=== PATIENT | male | born 1945 | race Caucasian/White ===

== ENCOUNTER 2017-12-28 14:40 | Emergency (ER) | payer MEDICARE, BC, OTHER ==
[2017-12-28 15:25] LABS: Bilirubin Negative (Negative); Blood, Urine Large (Negative); Clarity CLEAR (Clear); Glucose, Urine (Dipstick) >=1000 mg/dL (Negative); Leukocyte Negative (Negative); Nitrite Negative (Negative); Protein, Urine (Dipstick) Negative (Neg-Trace); Urobilinogen 0.2 mg/dL (0.2-1.0); pH, Urine 6.5 (5.0-9.0)
[2017-12-28 15:27] LABS: Bacteria/HPF None Seen HPF (None Seen); Hyaline Casts/LPF 0-3 HYALINE CAST LPF (0-3 Hyaline); Pathc Cast-AUWi Flag 0.14 (0-2.49); RBC/HPF GREATER THAN 50-TNTC HPF (0-3); Squamous Epithelial None Seen HPF (0-3); WBC/HPF 0-3 HPF (0-3)
[2017-12-28 16:09] LABS: #Eosinphils 0.1 thou/uL (0.0-0.7); #Lymphocytes 1.3 thou/uL (1.20-3.40); #Monocytes 0.6 thou/uL (0.11-0.59); #Neutrophils 6.2 thou/uL (1.40-6.50); %Basophils 0.2 % (0.0-1.0); %Eosinophils 1.2 % (0.0-10.0); %Lymphocytes 15.6 % (21.0-51.0); %Monocytes 7.5 % (0.0-10.0); %Neutrophils 75.5 % (42.0-75.0); Hemoglobin 14.2 g/dL (14.0-18.0); Mean Corpuscular HGB CONC 36.3 g/dL (32.0-36.0); Mean Corpuscular Volume 85.4 fL (78.0-98.0); Mean Platelet Volume 9.3 fL (7.4-10.4); Platelet Count 113 thou/uL (130-400); RBC Distribution Width 12.8 % (11.5-14.5); Red Blood Cell (RBC) Count 4.58 mill/uL (4.70-6.10); White Blood Cell (WBC) Count 8.2 thou/uL (4.8-10.8)
[2017-12-28 16:26] LABS: ALT (SGPT) 18 U/L (8-55); AST (SGOT) 14 U/L (5-34); Albumin 3.8 g/dL (3.4-4.8); Alkaline Phosphatase 56 U/L (40-150); Anion Gap 13 mmol/L (10-20); BUN (Urea Nitrogen) 33 mg/dL (8.4-25.7); Calc. Creatinine Clearance 0 mL/min (70-130); Calcium 9.7 mg/dL (7.8-10.44); Carbon Dioxide 27 mmol/L (23-31); Chloride 96 mmol/L (98-107); Estimated GFR-MDRD 33; Globulin 2.5 g/dL (2.4-3.5); Potassium 3.6 mmol/L (3.5-5.1); Protein, Total 6.3 g/dL (5.8-8.1); Sodium 132 mmol/L (136-145)
[2017-12-28 16:28] LABS: MDiff Complete? YES; Ovalocytes SLIGHT = 2-5 cells (100X) (0-1/hpf); PLT Morphology Comment Appears Decreased
[2017-12-28 16:32] LABS: Glucose 727 mg/dL (83-110)
[2017-12-28] MEDS ORDERED: Insulin Regular 300 UNITS/3 ML VIAL ONE (17:25)
[2017-12-28 17:27] LABS: Base Excess-Venous 2.7 mmol/L (0 (+/- 2.5)); Bicarbonate (HCO3v) 28.1 mmol/L (1.0-85.0); CO2 Tension (PvCO2) 45.3 mmHg (41.0-51.0); Calcium, Ionized 1.18 mmol/L (1.12-1.32); O2 Tension (PvO2) 63.3 mmHg (35.0-45.0); Potassium 3.4 mmol/L (3.4-4.7); T. Carbon Dioxide 29.5 mmol/L (1.0-85.0); pH (Venous) 7.401 (7.35-7.45); vO2 Saturation-calc 91.6 % (94-98)
[2017-12-28 17:48] LABS: Anion Gap 14 mmol/L (10-20); BUN (Urea Nitrogen) 32 mg/dL (8.4-25.7); Calc. Creatinine Clearance 0 mL/min (70-130); Calcium 8.9 mg/dL (7.8-10.44); Carbon Dioxide 25 mmol/L (23-31); Chloride 99 mmol/L (98-107); Estimated GFR-MDRD 33; Potassium 3.3 mmol/L (3.5-5.1); Sodium 135 mmol/L (136-145)
[2017-12-28 17:55] LABS: Glucose 606 mg/dL (83-110)
[2017-12-28] MEDS ORDERED: Insulin Glargine 10 UNITS in Pre-Filled Syringe 1 EACH SC SCH (19:45)
--- NOTE | 2017-12-28 23:11 | CON ---
DATE OF CONSULTATION: 12/28/2017 REFERRING PHYSICIAN: Dr. Lanre Littlejohn. REASON FOR CONSULTATION: Uncontrolled diabetes. HISTORY OF PRESENT ILLNESS: This patient is a 72-year-old male with a longstanding history of diabet es mellitus who actually presented to the emergency department with urinary complaints. Patient repo rts that his PCP is Dr. Saravia. She has been managing his blood pressure and has diabetes. He is on metformin 500 mg every day, appears to be the XR form. The patient reports that he has been experie ncing some weight loss in the range of 20-40 pounds over the last 6 months or so. He does not follow his blood sugars at home, but does note that his last A1c was elevated from the usual 5-6 range into the 9 range. Patient fully admits to being completely noncompliant with his diabetic diet. He eats a lot of sweet foods and drinks at least 2-3 fully sugared soft drinks per day. The patient present ed to the emergency department with a complaint of urinary frequency and urgency present over the las t month. He presented ultimately because he was having some interference of his sleep because of his polyuria and nocturia. In the emergency department, the patient's labs indicated a blood sugar over 700 and a creatinine of 2. The patient has received 2 liters of fluids and 10 units of short-acting insulin. Repeat BMP is pending now. The patient was recommended for admission to the hospital, but he refused that; therefore, they asked for a Medicine consultation in the emergency department. The patient has received 2 units of fluid in the emergency department. Currently, he states that he is feeling better. He states his brain felt "fuzzy" when he presented, but that is better now. REVIEW OF SYSTEMS: Primarily notable for the polyuria, polydipsia and weight loss. He denies signif icant visual changes on the remainder of the review of systems was negative. through 10 systems. PAST MEDICAL HISTORY: Notable for the diabetes, hyperlipidemia, and hypertension. PAST SURGICAL HISTORY: Tonsillectomy. SOCIAL HISTORY: The patient denies drugs, alcohol, or tobacco. CURRENT MEDICATIONS: Metformin XR 500 mg every day, lisinopril-hydrochlorothiazide 20-12.5 one p.o. daily, Cartia XT 240 mg daily, pravastatin 40 mg day. ALLERGIES: None. PHYSICAL EXAMINATION: VITAL SIGNS: Blood pressure 132/78, pulse 88, respirations 18, temperature 98.6, O2 sat 96% on room air. GENERAL APPEARANCE: Age appropriate male. He is in no distress. He is awake, alert, oriented, plea lili, cooperative. HEENT: PERRL. No OP lesions, although he does have a dry oral mucosa. NECK: Supple and symmetric. HEART: Regular rate and rhythm with no murmurs, gallops or rubs. CHEST: Lungs are clear to auscultation bilaterally with good chest wall expansion and air exchange. ABDOMEN: Soft, nontender, nondistended, positive bowel sounds. EXTREMITIES: Warm and dry with trace pretibial edema. LABORATORY DATA: White count 8.2, hemoglobin 14.2, platelets 113. Sodium 132, potassium 3.6, chlori de 96, CO2 of 27, anion gap was 14, BUN 33, creatinine 2.01, glucose 727, calcium 9.7, AST 14, ALT 18 , albumin 3.8. Urinalysis did show some red blood cells with over 1000 glucose. Beta hydroxybutyrat e was 0.24. IMPRESSION AND PLAN: 1. Severely uncontrolled diabetes with hyperglycemia and secondary polyuria, resulting in some level of dehydration. Agree with the excellent care. The patient has received to this point by Dr. Richy levin. I agree with the aggressive hydration. The patient was counseled regarding the situation. He fe els confident that he will be able to follow up with his PCP first thing in the morning. He also sta rock that he will be diligent in complying with his diet. Counseled the patient regarding minimizatio n of any added sugar type foods, especially in the form of soft drinks. He has repeat labs pending n ow. Recommend that if we can get his sugar down below 400 effectively and he is adequately hydrated that he can receive 1 dose of Lantus at 20 units subQ and then can be discharged to continue to hydra te orally and follow up with his PCP tomorrow morning. 2. Patient does have some hematuria. It is unclear if this is related to the polyuria and hyperglyc emia. We will defer further evaluation of that to the ER physician. 3. Hypertension, very well controlled. I appreciate the consultation and the opportunity to participate in this patient's care.
== END 2017-12-28 20:14 | disposition home or self-care (01) ==
LOC: ERS 14:40
DX: E11.65 Type 2 diabetes mellitus with hyperglycemia (principal); R31.9 Hematuria, unspecified; E78.5 Hyperlipidemia, unspecified; I10 Essential (primary) hypertension; Z79.899 Other long term (current) drug therapy
CPT/HCPCS: 36415; 36416; 80053; 81003; 81015; 82010; 82330; 82803; 85025; 96361; 96374; J1815

== ENCOUNTER 2017-12-29 20:55 | Emergency (ER) | payer MEDICARE, BC, OTHER | END 2017-12-29 21:55 | disposition left against medical advice (07) | LOC: ERS 20:55 | DX: Z53.21 Procedure and treatment not carried out due to patient leaving prior to being seen by health care provider (principal) | CPT/HCPCS: 36416 ==

== ENCOUNTER 2020-06-27 11:49 | Inpatient (IN) | payer MEDICARE, BC, OTHER ==
[2020-06-27 12:09] LABS: #Basophils 0.1 thou/uL (0.0-0.2); #Eosinphils 0.2 thou/uL (0.0-0.7); #Lymphocytes 2.3 thou/uL (1.20-3.40); #Monocytes 0.8 thou/uL (0.11-0.59); #Neutrophils 5.2 thou/uL (1.40-6.50); %Basophils 0.7 % (0.0-1.0); %Eosinophils 2.9 % (0.0-10.0); %Lymphocytes 26.4 % (21.0-51.0); %Monocytes 9.3 % (0.0-10.0); %Neutrophils 60.7 % (42.0-75.0); Hemoglobin 10.5 g/dL (14.0-18.0); Mean Corpuscular Hemoglobin 28.3 pg (27.0-31.0); Mean Corpuscular Volume 88.5 fL (78.0-98.0); Mean Platelet Volume 9.4 fL (7.4-10.4); Platelet Count 128 thou/uL (130-400); RBC Distribution Width 13.9 % (11.5-14.5); Red Blood Cell (RBC) Count 3.73 mill/uL (4.70-6.10); White Blood Cell (WBC) Count 8.6 thou/uL (4.8-10.8)
[2020-06-27 12:13] LABS: Base Excess (BEa) -4.8 mEq/L (-2.0 to +3.0); CO2 Tension 36.1 mmHg (35.0-45.0); Calcium, Ionized (arterial) 1.11 mmol/L (1.12-1.30); Carboxyhemoglobin (COHb) 0.3 gm% (0.0-3.0); Hemoglobin (Hb) 10.7 g/dL (14.0-18.0); Potassium - ABG Lab 2.97 mmol/L (3.70-5.30); pH, Arterial 7.36 (7.35-7.45)
--- NOTE | 2020-06-27 12:14 | RAD ---
XR Chest 1 View Portable History: Chest pain Comparison: None. Findings: Heart size markedly enlarged. Abnormal fullness of the right paratracheal soft tissues. Pat ient intubated endotracheal tube tip above the yessi approximately 5 cm. Enteric tube tip below diaphragm although out of field of view. The aorta is mildly ectatic. Impression: 1. Endotracheal tube tip above the yessi. 2. Enteric tube tip below diaphragm although out of field of view. 3. Cardiomegaly with abnormal fullness of the paratracheal soft tissues as well as aortic ectasia. No nemergent follow-up CT of the chest may be beneficial.
[2020-06-27 12:29] LABS: ALT (SGPT) 24 U/L (8-55); AST (SGOT) 26 U/L (5-34); Albumin 3.3 g/dL (3.4-4.8); Alkaline Phosphatase 44 U/L (40-110); Anion Gap 13 mmol/L (10-20); BUN (Urea Nitrogen) 28 mg/dL (8.4-25.7); Bilirubin, Total 0.8 mg/dL (0.2-1.2); Calc. Creatinine Clearance 0 mL/min (70-130); Carbon Dioxide 23 mmol/L (23-31); Chloride 112 mmol/L (98-107); Globulin 2.4 g/dL (2.4-3.5); Glucose 211 mg/dL (83-110); Potassium 3.2 mmol/L (3.5-5.1); Protein, Total 5.7 g/dL (5.8-8.1); Sodium 145 mmol/L (136-145)
[2020-06-27 12:33] LABS: O2 Tension (PaO2), arterial 53.3 mmHg (> 70.0)
[2020-06-27 12:34] LABS: ALV-art Gradient 614.575 mmHg (0-20); Puncture Site RBA
[2020-06-27 12:57] LABS: CKMB 3.2 ng/mL (0-6.6)
[2020-06-27] MEDS ORDERED: Atropine Sulfate 1 mg/10 ml Syringe ONE ×2 (13:03→21:39)
--- NOTE | 2020-06-27 13:04 | CT ---
CT Brain WO Con History: Cardiac arrest Comparison: None. Findings: Extensive thickening of the paranasal sinuses. Air-fluid level right maxillary sinus. No acute hemorrhage. No midline shift. Extensive microvascular ischemic changes, chronic. Calvarium is intact. Impression: Extensive mucosal sinus disease and right maxillary sinus air-fluid level. No acute intra cranial hemorrhage.
--- NOTE | 2020-06-27 13:07 | CT ---
CT Cervical Spine WO Con History: Unresponsive. Comparison: None. Findings: Congenital fusion of the atlantooccipital joints. Large disc osteophyte complexes throughou t the cervical spine. No acute fracture or malalignment. No significant listhesis. Lung apices appear relatively clear aside from atelectatic changes. Endotracheal and enteric tube tips not well s een. Impression: No acute cervical spine fracture or malalignment.
[2020-06-27] MEDS ORDERED: Midazolam HCl 5 mg/ml Vial ONE ×2 (13:14→13:46)
[2020-06-27 13:39] LABS: SARS-CoV-2 NAA Rapid Test Not Detected (NotDetected)
[2020-06-27] MEDS ORDERED: Fentanyl 100 MCG/2 ML VIAL ONE (13:46)
--- NOTE | 2020-06-27 14:08 | PDOC.FPRHP ---
- History of Present Illness Chief Complaint: Cardiac arrest History of Present Illness: Patient is a 75 year old male with a reported history of HTN, HLD, and DM who presented to the ED via EMS after cardiac arrest. Per EMS, patient had witnessed cardiac arrest with initiation of bystandard CPR. EMS called at 1107 and arrived at 1110. Upon EMS arrival, patient was in vfib with 300 J administered x 1 and 4 rounds of CPR completed. ROSC achieved at 1124. 100mg lidocaine given. Then became bradycardic with 1mg of atropine given. Patient was intubated in the field with ketamine and rocuronium. ED Course: In the ED, Dr. Gaines, cardiology, was consulted and reported research laboratory manager not indicated due to lack of ST segment elevations on EKG and lack of patient responsiveness. Dr. Martinez, pulmonology, consulted and agreed with cooling patient. Will see in ICU. Atropin 1mg given due to return of bradycardia. Also given midazolam 5mg x 2 and fentanyl 100mcg. 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 Abdominal breathing Abdomen: soft, bowel sounds present -Neurological: + Babinsky bilaterally, patellar reflex elicited on left but not right, pupils nonreactive -Skin: Healing lesions on legs consistent with mosquito bites Heme/Lymphatic: no unusual bruising or bleeding FMR H&P: Results - Labs Result Diagrams: 06/27/20 11:56 06/27/20 11:56 Lab results: WBC 8.6 thou/uL (4.8-10.8) 06/27/20 11:56 Hgb 10.5 g/dL (14.0-18.0) L 06/27/20 11:56 Hct 33.0 % (42.0-52.0) L 06/27/20 11:56 MCV 88.5 fL (78.0-98.0) 06/27/20 11:56 Plt Count 128 thou/uL (130-400) L 06/27/20 11:56 Neutrophils % 60.7 % (42.0-75.0) 06/27/20 11:56 ABG pH 7.36 (7.35-7.45) 06/27/20 12:00 ABG pCO2 36.1 mmHg (35.0-45.0) 06/27/20 12:00 ABG pO2 53.3 mmHg (> 70.0) L* 06/27/20 12:00 Sodium 145 mmol/L (136-145) 06/27/20 11:56 Potassium 3.2 mmol/L (3.5-5.1) L 06/27/20 11:56 Chloride 112 mmol/L (98-107) H 06/27/20 11:56 Carbon Dioxide 23 mmol/L (23-31) 06/27/20 11:56 BUN 28 mg/dL (8.4-25.7) H 06/27/20 11:56 Creatinine 1.82 mg/dL (0.7-1.3) H 06/27/20 11:56 Glucose 211 mg/dL (83-110) H 06/27/20 11:56 Calcium 8.0 mg/dL (7.8-10.44) 06/27/20 11:56 Total Bilirubin 0.8 mg/dL (0.2-1.2) 06/27/20 11:56 AST 26 U/L (5-34) 06/27/20 11:56 ALT 24 U/L (8-55) 06/27/20 11:56 Alkaline Phosphatase 44 U/L (40-110) 06/27/20 11:56 CK-MB (CK-2) 3.2 ng/mL (0-6.6) 06/27/20 11:56 Serum Total Protein 5.7 g/dL (5.8-8.1) L 06/27/20 11:56 Albumin 3.3 g/dL (3.4-4.8) L 06/27/20 11:56 - EKG Interpretation EKG: HR 40, aflutter, RBBB - Radiology Interpretation CT scan - head Status: report reviewed by me Additional comment: extensive mucosal sinus disease, right maxillary sinus air-fluid level, no acute intracranial hemorrhage Chest x-ray Status: report reviewed by me Additional comment: ET tube in place, cardiomegaly Other Status: report reviewed by me Additional comment: CT C-spine: no acute fracture FMR H&P: A/P - Plan 75 y/o male with hx of HTN, DM, HLD brought via EMS after witnessed cardiac arrest with ROSC Cardiogenic shock 2/2 possible arrhythmia Witnessed cardiac arrest, found to be in vfib with CPR x 4 rounds, 300 J administered x 1. ROSC achieved 17 min later. s/p 100mg lidocaine, atropine 1mg x 2. Currently profusing well with BP > 200s systolic, pulses present -EKG: aflutter, HR 40 -Dr. Gaines, cardiology, consulted. No indication for cath at this time -F/u echo -F/u trop trend -TSH, mag, phos, UDS screen -Start heparin drip if trop > 0.3. PPx heparin in case of procedure -Cooling at 32-34 C for 12-24 hours for neuro protection -Intubated in the field with ketamine and rocuronium. On propofol -Protonix IV daily -Contact family for code status and further information Atrial flutter with bradycardia -EKG: aflutter, HR 40s -Continue to monitor Acute hypoxic respiratory failure -Intubated and sedated on propofol -Dr. Martinez, hand braille transcriber, consulted in ED Diabetes mellitis, type unknown -Contact family for further information - A1C ordered - SSI mild - AC/HS accuchecks HTN -Monitor -Medication list unknown Hypokalemia K 3.2 in ED -40mEQ IV now -Monitor with am labs, electrolyte protocol in place Normocytic anemia -Hgb 10.5, MCV 88 in ED -will further work up once stable PCP: Marian Saravia Code status: Full pending discussion iwth family DVT ppx: heparin GI ppx: protonix IV Dispo: admit to CCU, expected LOS > 48 hours FMR H&P: Upper Level - Pertinent history 75 y/o M with pmhx of DM, HTN, and HLD presents via EMS after collapse while at work. 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 They started chest compressions and called EMS. EMS arrived within a few minutes and took over. Pt was intubated in the field with Rocuronium and ketamine. Acheived ROSC after CPR and 1 defibrillation. Received 100 mg lidocaine Pt was not very responsive at first while in the ED, but began to fight the ET tube. He responded to commands per Dr. Feliz to move his feet if he was experiencing pain. He was then started on propofol. - Pertinent findings Vitals: BP: 139/66 HR: 45 RR: 22 Temp: 99.3 O2 sat 100 on vent Gen: intubated and sedated lying supine HEENT: fixed pupils bilaterally 3 mm without constriction with light reflex. MMM. bloody fluid suctioned from mouth around ET tube. Cardiac: rate 45, no significant murmurs. Lungs: diffuse coarse rhonchi with belly breathing over the tube. Ext: trace pitting edema up to knees bilaterally. Small circular, erythematous skin lesions 1 cm in diameter on BLE's Neuro: pupillary light reflex not intact, no corneal reflex. upward going babinski bilaterally. CT brain: no acute intracranial process CT neck: no acute fracture CXR: atelectasis and cardiomegaly ABG: pH 7.36, O2 53, CO2 36, bicarb 20 K 3.2 H/H: 10.5/33.0 - Plan Date/Time: 06/27/20 1408 75 y/o male ROSC achieved in field by EMT after cardiac arrest with cardiogenic shock. 1. Cardiogenic shock - Chest compressions and intubation initiated in the field. V. fib rhythm strip per EMS upon arrival to the ED. - EKG: atrial flutter with rate of 40 - Cardiology Dr. Gaines consulted form ER by Dr. Feliz. Recommending no Cath at this time, with close watching. - Echo ordered, trend trops. start heparin drip if trop >0.3. ppx heparin in meantime incase of procedure. - In setting of possible anoxic brain injury will cool pt to 32-34 Celsius for 12-24 hours. Will continue to monitor mental status once pt able. - on propofol for sedation while intubated. - IV protonix daily 2. Suspected cardiac arrhythmia as cause of sudden cardiogenic arrest - Ordered TSH, Mag, Phos, electrolytes and UDS - Echo and cards consult. 3. Atrial flutter with bradycardia - EKG showed a flutter wtih rate of 40's - perfusing well with elevated BP and 2+ pulses radial, and dorsalis pedis. 4. Acute hypoxic resp failure - requiring intubation - Pulm consulted for vent management in ICU 5. Hx of DM - insure of regimen, will seek records - A1C ordered - SSI mild - AC/HS accuchecks 6. Hx of HTN - hold antihypertensive medications at this time as pt perfusion is adequate 7. Hypokalemia - will replace IV as PRN 8. Normocytic anemia - will further work up once stable PCP: Marian Saravia Code status: full code per girlfriend. Palliative consult to help with code status as girlfriend has dementia. There is a brother that the girlfriend does not know the telephone number to. DVT ppx: heparin, in case cards decides on procedures GI ppx: protonix IV due to cardiogenic shock and CCU pt. Dispo: admit to CCU, inpt. >48 hr anticipated. I, Lorena Pruitt, have evaluated this patient and agree with findings/plan as outlined by architectural intern resident. Pertinent changes/additions are listed here. Addendum - Attending - Attending Attestation Date/Time: 06/27/20 5987 I personally evaluated the patient and discussed the management with Dr. Mckenna/Edmond. I agree with the History, Examination, Assessment and Plan documented above with any addition or exceptions noted below. Patient here after cardiac arrest apparently at his office. CPR and Epi for 20 minutes, Defib x4. ROSC achieved. Intubated in field. We currently have no other history at this time, but are reaching out to his caregiver to get baseline history and if he has any MPOA. ROS not obtainable given his current state. HR low 40s, other HDS. PE shows fixed and constricted pupils, but recently received fentanyl. He has no spontaneous movement at the current time. Bradycardic on exam, no murmurs, Lungs CTAB. Abdomen soft. Trace pitting edema BLE, bounding pulses throughout. Labs reveal elevated troponin and creatinine but currently no other major abnormalities. Patient will be admitted to CCU for Cardiac Arrest s/p ROSC. Cardiology consulted, no need for emergent cath at this time. EKG shows afib with bradycardic rate, continue to monitor, may need pacing if BP deteriorates. Trend enzymes. Cooling protocol. IV fluids. Vent mgmt per Pulm. Strict I/O. Will attempt to reach out and identify MPOA. Palliative care consult. Suspect guarded to poor prognosis at this time.
[2020-06-27] MEDS ORDERED: Propofol 1,000 MG/100 ML VIAL IV ONE (14:11)
[2020-06-27] MEDS ORDERED: Fentanyl CADD 100 ML IV SCH ×2 (14:45→15:15)
[2020-06-27] MEDS ORDERED: Senokot S 8.6-50 MG TAB PO PRN (14:55)
[2020-06-27] MEDS ORDERED: Dextrose 50% Abboject 50 ML SYRINGE SLOW IVP PRN (14:55)
[2020-06-27] MEDS ORDERED: Acetaminophen 325 MG TAB PO PRN (14:55)
[2020-06-27] MEDS ORDERED: Dextrose 5% in Water 1,000 ML IV PRN (14:55)
[2020-06-27] MEDS ORDERED: HumaLOG 300 UNITS/3 ML VIAL SC PRN (14:58)
[2020-06-27] MEDS ORDERED: Electrolyte Replacement Protocol 1 EACH IVPB ONE (14:58)
[2020-06-27] MEDS ORDERED: Ventilator Sedation Protocol 1 EACH FS SCH (15:00)
[2020-06-27 15:10] LABS: Troponin I 0.296 ng/mL (< 0.028)
[2020-06-27] MEDS ORDERED: Morphine 2 MG/ML VIAL SLOW IVP PRN (15:15)
[2020-06-27] MEDS ORDERED: Electrolyte Replacement Protocol FS PRN (15:15)
[2020-06-27] MEDS ORDERED: DISCONTINUE PREVIOUS NARCOTIC PAIN MEDICATIONS AND BENZODIAZEPINES FS SCH (15:15)
[2020-06-27] MEDS ORDERED: Fentanyl BOLUS 250 ML IVPB PRN (15:15)
[2020-06-27] MEDS ORDERED: Propofol BOLUS 1,000 MG/100 ML VIAL IV PRN (15:15)
[2020-06-27] MEDS ORDERED: Lorazepam 2 MG/ML VIAL SLOW IVP PRN (15:15)
[2020-06-27] MEDS ORDERED: Potassium Chloride 10 MEQ in Premix Bag 1 BAG IVPB SCH (16:00)
[2020-06-27] MEDS ORDERED: Potassium Chloride 40 MEQ in Sodium Chloride 0.9% 250 ML 250 ML IVPB SCH (16:00)
[2020-06-27] MEDS ORDERED: Vecuronium 10 MG VIAL IV PRN ×2 (16:31→19:00)
--- NOTE | 2020-06-27 16:33 | CON ---
DATE OF CONSULTATION: CRITICAL CARE NOTE: Total critical care time 35 minutes. HISTORY OF PRESENT ILLNESS: Mr. Lobato is a 75-year-old gentleman who recently had [id number] arrest. 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 CPR was noted on the scene. I have discussed the case multiple times with the ER physician. It appeared from the time he collapsed to the time of return of spontaneous circulation was estimated at 20 minutes. I did reach out to his next of kin in the chart. He is an acquaintance who has known him for 13 years. She states she does not know anything about his past medical history. He has no children and is unmarried. PAST MEDICAL HISTORY: Per the chart, his past medical history hyperlipidemia, hypertension, diabetes mellitus. MEDICATIONS: Unknown. ALLERGIES: UNKNOWN. IT IS OF NOTE THE PATIENT WAS SEEN IN 2018 WITH UNCONTROLLED DIABETES. HE HAD POLYURIA AT THAT TIME. REVIEW OF SYSTEMS: Unobtainable. He is currently intubated. PHYSICAL EXAMINATION: VITAL SIGNS: Blood pressure 110/70, pulse 40s to 50s, respirations 20. General: The patient is currently intubated, sedated. in no acute distress, appears stated age. Head, Eyes, Ears, Nose and Throat: Sclerae without icterus. Mouth: Moist mucous membranes, normal palate. Neck: No jugular venous distention. Carotid upstroke is brisk. No bruits bilaterally. Lungs: Clear to auscultation. Heart: Regular rate and rhythm, normal S1 and S2. Abdomen: Soft, nontender, nondistended. Extremities: No edema. LABORATORY DATA: Pertinent labs include hemoglobin 10.5, hematocrit 33, platelet count 128. Potassium 3.2, creatinine 1.82 with a GFR 37, glucose of 408. Peak troponin 0.2. COVID negative. IMPRESSION: [id number] arrest. RECOMMENDATIONS: The events around Mr. Lobato's current demise are unknown. His past medical history is outlined as above, but may have a more extensive past medical history. Unfortunately, there is no family to give us any further guidance. At this point, would continue with hypothermia protocol. We will continue with vent support. His heart rate is low and irregular suggesting atrial flutter. It is unknown how long this rhythm has been noted. If he does have neurologic recovery, may then consider a cardiac approach to the etiology. We would recommend an echo Doppler to assess overall LVEF. This may help to delineate the underlying cause. The patient's initial glucose was markedly elevated. He has also had a previous hospitalization for uncontrolled diabetes. I am suspecting this has been an issue. May consider an HbA1c. Otherwise, I have no further recommendations. Job ID: [id number]
[2020-06-27] MEDS ORDERED: Pantoprazole 40 MG VIAL IVP SCH (16:45)
[2020-06-27 18:00] LABS: Hemoglobin A1c 6.4 % (4.0-6.0)
[2020-06-27 18:12] LABS: Phosphorus 4.5 mg/dL (2.3-4.7)
[2020-06-27 18:22] LABS: Amphetamine Not Detected (NotDetected); Barbiturates Screen Not Detected (NotDetected); Benzodiazepine Screen Not Detected (NotDetected); Cocaine Metabolite Screen Not Detected (NotDetected); Medtox Control Line Valid? VALID (VALID); Medtox Reader # READER 4; Methadone Not Detected (NotDetected); Methamphetamine Not Detected (NotDetected); Opiate Screen Not Detected (NotDetected); Oxycodone Screen Not Detected (NotDetected); Phencyclidine (PCP) Not Detected (NotDetected); THC/Cannabinoid Screen Not Detected (NotDetected); Tricyclic Screen Not Detected (NotDetected)
[2020-06-27 18:26] LABS: Troponin I 0.952 ng/mL (< 0.028)
[2020-06-27] MEDS: Propofol 1,000 MG/100 ML VIAL IV PRN ×2 (19:15→23:59)
[2020-06-27] MEDS ORDERED: FLU VACC QS2020-21(65YR UP)/PF 240 MCG/0.7 ML SYRINGE IM ONE (20:00)
[2020-06-27] MEDS: Sodium Chloride 0.9% 1,000 ML IV SCH (20:22)
[2020-06-27] MEDS ORDERED: Heparin 25,000 units/D5W 500 ML IVPB SCH (20:30)
[2020-06-27] MEDS ORDERED: Heparin 10,000 UNITS/ 10 ML VIAL SLOW IVP SCH (20:30)
[2020-06-27 20:59] LABS: Hemoglobin 11.8 g/dL (14.0-18.0); Platelet Count 143 thou/uL (130-400)
[2020-06-27] MEDS ORDERED: Heparin 5,000 UNITS/ML VIAL SC SCH (21:00)
[2020-06-27] MEDS ORDERED: DOBUTamine 500 mg/250 ml 250 ML ONE (21:43)
[2020-06-27] MEDS ORDERED: DOBUTamine 500 mg/250 ml 250 ML IVPB SCH (21:45)
[2020-06-27] MEDS ORDERED: Atropine Sulfate 1 mg/10 ml Syringe IVP SCH (21:45)
[2020-06-27] MEDS ORDERED: DOPamine 400 MG/D5W 250 ML 250 ML ONE (21:48)
[2020-06-27] MEDS ORDERED: Norepinephrine 8 MG/0.9% NS 250 ML ONE (21:52)
[2020-06-27] MEDS ORDERED: DOPamine 400 MG/D5W 250 ML 250 ML IVPB SCH (22:00)
--- NOTE | 2020-06-27 23:25 | PRG ---
DATE OF SERVICE: 06/27/2020 CHIEF COMPLAINT: Bradycardia. HISTORY OF PRESENT ILLNESS: The family program specialist team was paged due to the patient being found to be bradycardic into the 20s. I personally responded approximately 5 minutes after the resident team had been notified. At the time of my examination, the patient was undergoing the cooling protocol and was being transcutaneously paced. However, the transcutaneous pacemaker was not picking up. Telemetry monitoring was showing electrical impulses with a rate of approximately 75. However, Doppler auscultation of the pulse still showed the patient had a heart rate of approximately 25. I contacted Dr. Gaines, who is on-call for Cardiology and asked if he felt the patient was a candidate for a transvenous pacemaker placement. He asked if medications had been given and requested the patient to be given atropine and started on a dobutamine and dopamine drip at 5 for both drips. I asked the nursing staff to discontinue the cooling protocol and began to rewarm the patient, as I felt that this was contributing to his bradycardia and hypotension. Sedation was also stopped. I placed a central venous catheter for additional IV access and asked the nursing staff to start Levophed to improve his blood pressure. After all interventions, he is now being successfully transcutaneously paced and his pulse is now in the 60s. He is being prepared to be taken to the bottle label inspector at this time for transvenous pacemaker placement by Dr. Gaines. We will request that Dr. Gaines places an arterial line while in the bottle label inspector for better pulse and blood pressure monitoring. Out team will continue to attempt to contact next of kin, but at the time of this dictation, we have been unsuccessful after multiple attempts. The patient remains in critical condition and his overall prognosis is still guarded. Approximately 70 minutes of critical care time were spent by me in the care of this patient excluding placement of central venous catheter. Job ID: [id number] MTDD
[2020-06-28] MEDS ORDERED: Norepinephrine 8 MG/0.9% NS 250 ML IVPB SCH (00:45)
--- NOTE | 2020-06-28 00:58 | OP ---
DATE OF PROCEDURE: 06/27/2020 PROCEDURE: Right femoral central venous catheter placement. PREOPERATIVE DIAGNOSES: 1. Status post ROSC. 2. Bradycardia. 3. Cardiogenic shock. POSTOPERATIVE DIAGNOSES: 1. Status post ROSC. 2. Bradycardia. 3. Cardiogenic shock. ESTIMATED BLOOD LOSS: 5 mL. ANESTHESIA: Ventilator sedation protocol. INDICATION: Need for multiple vasoactive drugs and additional IV access. PROCEDURE IN DETAIL: Informed consent was unable to be obtained due to the emergent nature of this procedure and inability to contact the patient's next of kin. I verified that the patient was full code. The patient was prepped and draped in usual sterile fashion. Right femoral vein was identified using point of care ultrasound. The right femoral vein was cannulated under direct visualization using ultrasound. Seldinger technique was used to place a 7 hebrew triple-lumen central venous catheter without difficulty. All three ports were flushed and aspirated. The catheter was sutured in place and adhesive dressing with antimicrobial patch was placed over the entry site. The patient tolerated the procedure well without complications. Job ID: [id number] [facility]
[2020-06-28 05:41] LABS: Anion Gap 20 mmol/L (10-20); BUN (Urea Nitrogen) 38 mg/dL (8.4-25.7); Calc. Creatinine Clearance 42 mL/min (70-130); Calcium 8.2 mg/dL (7.8-10.44); Carbon Dioxide 18 mmol/L (23-31); Cardiac Risk 3.5 (Less than 4.5); Chloride 112 mmol/L (98-107); Cholesterol 138 mg/dl (< 200 Desired); Glucose 212 mg/dL (83-110); HDL Cholesterol 39 mg/dL (>60 Neg Risk); LDL Cholesterol, Calculated 70 mg/dL; Potassium 3.9 mmol/L (3.5-5.1); Sodium 146 mmol/L (136-145); Triglycerides 144 mg/dL (Less than 150)
[2020-06-28 05:41] LABS: #Lymphocytes 0.7 thou/uL (1.20-3.40); #Monocytes 1.4 thou/uL (0.11-0.59); #Neutrophils 15.8 thou/uL (1.40-6.50); %Basophils 0.1 % (0.0-1.0); %Lymphocytes 3.8 % (21.0-51.0); Hemoglobin 11.2 g/dL (14.0-18.0); Mean Corpuscular HGB CONC 33.1 g/dL (32.0-36.0); Mean Corpuscular Hemoglobin 28.7 pg (27.0-31.0); Mean Corpuscular Volume 86.7 fL (78.0-98.0); Mean Platelet Volume 9.7 fL (7.4-10.4); Platelet Count 124 thou/uL (130-400); RBC Distribution Width 14.1 % (11.5-14.5); Red Blood Cell (RBC) Count 3.91 mill/uL (4.70-6.10)
[2020-06-28] MEDS: Sodium Chloride 0.9% 1,000 ML IV SCH ×2 (05:41→14:57)
[2020-06-28] MEDS: Propofol 1,000 MG/100 ML VIAL IV PRN ×3 (05:41→23:17)
--- NOTE | 2020-06-28 07:04 | CON ---
DATE OF CONSULTATION: HISTORY OF PRESENT ILLNESS: Ad Lobato is a 75-year-old gentleman, who apparently was found down at home. 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 He was intubated by the paramedics. There was apparently 17 minutes of CPR. He was cardioverted. He was given 100 mg of lidocaine, intubated, transferred to [facility]. He is now on a cooling protocol. Additional information is difficult to get, apparently his girlfriend, older age, apparently has dementia. We are in the process of trying to get additional information from any family if possible, but he was here 2 years ago with a past medical history of diabetes, hyperlipidemia, high cholesterol, hypertension. PREVIOUS SURGERIES: From old records including tonsillectomy. MEDICATIONS: Unable to get any medication. PHYSICAL EXAMINATION: VITAL SIGNS: In the ICU, he is on the vent, intubated. Pupils are equal. His pulse is 40-50, blood pressure 100/60, respiratory rate is set at 20. CHEST: Decreased breath sounds. No wheezing. CARDIAC: Normal S1, S2. No gallops. ABDOMEN: No masses. LABORATORY DATA: White count 8, H and H 10.5 and 33, platelet count 128. PO2 was 53, pCO2 of 36, pH of 7.36 on 100% . Creatinine 1.2, blood sugar 211. Troponin was elevated 0.29. CT of head shows sinusitis, but no acute hemorrhage or bleed. Air-fluid level in his left maxillary sinus. Chest x-ray did not show any acute infiltrates, widening of the mediastinum. Cervical spine x-ray shows no acute injury. Coronavirus test is negative. Influenza test is negative. IMPRESSION: 1. Status post cardiopulmonary arrest. It appears he was in a ventricular arrhythmia at the time. 2. Respiratory failure. 3. Prolonged CPR. 4. Diabetes, renal failure. PLAN: Continue vent support. He is on protocol. At this stage, we will try to get additional information from any family members. Prognosis remains guarded. This is a 45-minute critical care time. Job ID: [id number]
--- NOTE | 2020-06-28 07:07 | PDOC.FM ---
- Subjective Subjective: Pt was symptomatic with a HR in 20's overnight with unobtainable BP. Central line placed, and began percutaneous pacing. started on dopamine and dobutamine per cards recs Pt was taken back by Dr. Gaines for temporary pacer. HR paced in 60's and MAPs maintaining 90's. Currently weaning sedation to see how active the pt is. - Objective MAR Reviewed: Yes Vital Signs & Weight: Vital Signs (12 hours) Temp Pulse Resp Pulse Ox 06/28/20 06:00 24 H 06/28/20 05:05 60 06/28/20 04:00 97.8 F 24 H 06/28/20 02:00 24 H 06/28/20 00:34 60 06/28/20 00:00 98.0 F 28 H 96 06/27/20 22:20 66 06/27/20 22:00 94.1 F L 28 H 06/27/20 20:00 98.8 F 24 H 100 Weight Weight 109.2 kg Most Recent Monitor Data Heart Rate from ECG 61 NIBP 134/70 NIBP BP-Mean 91 Respiration from ECG 24 SpO2 99 I&O: 06/27/20 06/28/20 06/29/20 06:59 06:59 06:59 Intake Total 1190.8 Output Total 135 Balance 1055.8 Result Diagrams: 06/28/20 07:45 06/28/20 02:05 Phys Exam - Physical Examination intubated. just started sedation wean. opens eyes to sternal rub. HEENT: moist MMs, sclera anicteric Neck: supple coarse breath sounds bilaterally. Brown thin fluid suctioned from ET tube. Cardiovascular: RRR, no significant murmur HR 60 NSR Gastrointestinal: soft, no distention, positive bowel sounds Musculoskeletal: pulses present opens eyes to sternal rub. does not respond to commands. Deviation from normal: BLE small circular lesions ~1 cm diamerter over anterior legs. Dx/Plan (1) Cardiogenic shock Code(s): R57.0 - CARDIOGENIC SHOCK Status: Acute (2) Atrial flutter Code(s): I48.92 - UNSPECIFIED ATRIAL FLUTTER Status: Acute (3) Hypokalemia Code(s): E87.6 - HYPOKALEMIA Status: Acute (4) Normocytic anemia Code(s): D64.9 - ANEMIA, UNSPECIFIED Status: Acute (5) IDDM (insulin dependent diabetes mellitus) Code(s): UTQ8703 - Status: Acute (6) HTN (hypertension) Code(s): I10 - ESSENTIAL (PRIMARY) HYPERTENSION Status: Acute (7) HLD (hyperlipidemia) Code(s): E78.5 - HYPERLIPIDEMIA, UNSPECIFIED Status: Acute - Plan Plan: 75 y/o male ROSC achieved in field by EMT after cardiac arrest with cardiogenic shock. 1. Cardiogenic shock - Chest compressions and intubation initiated in the field. V. fib rhythm strip per EMS upon arrival to the ED. - EKG: atrial flutter with rate of 40 - Cardiology Dr. Gaines consulted form ER by Dr. Feliz. Recommending no Cath at admission. However overnight the pt became symptomatic without a reading BP and HR in the 20's. Central line wasplaced, percutaneous pacing initiated and dopamine and dobutamine started. Pt was taken for a temporary pacer by Dr. Gaines. - Echo ordered - In setting of possible anoxic brain injury pt received 32-34 Celsius for several hours, whis was disconintued as might ave been further contributing to bradycardia. Will continue to monitor mental status once pt able. - Sedation held to monitor for mental status improvement. - IV protonix daily - diesel locomotive engineer consulted for dietary needs 06/28 2. Suspected cardiac arrhythmia as cause of sudden cardiogenic arrest - Ordered TSH, Mag, Phos, electrolytes and UDS al nml. - Echo and cards consult. 3. Atrial flutter with bradycardia, resolved - EKG showed a flutter wtih rate of 40's - perfusing well with elevated BP and 2+ pulses radial, and dorsalis pedis upon admission, but developed symptoms of hypotension and HR 20's 06/27 overnight. see note from night team. taken for temporary pacer and now stable. - Pt in NSR rate 60 - Heparin ggt - Cards consulted, appreciate recs 4. Elevated Troponins. - likely secondary to CPR/defibrillation, differnetial does include ischemia, arrhythmia. Refer to Cardiology note for type. Dr. Gaines does not presume this to be occlusive process as the amount of rise in trop does not represent occlusion, but rather post CPR/defibrillation. - Trops: 0.075 > 0.296 > 0.952 - Dr. Gaines consulted for cards, does not plan to take to cath today, had pacer placed overnight 06/27. - heparin drip at this time per cards recs. 5. Acute hypoxic resp failure - requiring intubation - Pulm consulted for vent management in ICU - dark spurutm suctioned and fevers on admission. cultured sputum and started vanc plus rocephin. blood and urine ccx as well. 6. ELÍAS - most likely secondary to cargiogenic shock and hypoperfusion temporarily. - will monitor and treat the cause. - IVF hydration 7. Hx of DM - insure of regimen, will seek records - A1C ordered - SSI mild - AC/HS accuchecks 8. Hx of HTN - hold antihypertensive medications at this time as pt perfusion is adequate 9. Hypokalemia - will replace IV as PRN 10. Normocytic anemia - will further work up once stable PCP: Marian Saravia [facility] Code status: full code per NOK, brother Ad Lobato DVT ppx: heparin, in case cards decides on procedures GI ppx: protonix IV due to cardiogenic shock and CCU pt. Dispo: admit to CCU, inpt. >48 hr anticipated. Addendum - Attending - Attending Attestation Date/Time: 06/28/20 6822 I personally evaluated the patient and discussed the management with Dr. Pruitt. I agree with the History, Examination, Assessment and Plan documented above with any addition or exceptions noted below.
--- NOTE | 2020-06-28 07:29 | OP ---
DATE OF PROCEDURE: 06/27/2020 PREPROCEDURE DIAGNOSIS: Hypotension and need for arterial line. PROCEDURE: Central line placement. Due to Mr. Lobato being on dobutamine in addition to norepinephrine, I was asked by Dr. Olmedo to proceed with central line placement. Patient was draped and prepped in sterile fashion. Access was obtained in the left femoral artery under ultrasound guidance. A 5-Z[place] sheath was placed. IMPRESSION: Successful arterial line placement. Job ID: [id number]
--- NOTE | 2020-06-28 07:38 | CON ---
DATE OF CONSULTATION: 06/27/2020 PREPROCEDURE DIAGNOSIS: Symptomatic bradycardia. POSTPROCEDURE DIAGNOSIS: Symptomatic bradycardia. PROCEDURE: Temporary pacemaker. I was called by Dr. Olmedo given the patient's heart rate in the 20s. The patient did not respond to atropine or norepinephrine. Decided to proceed with urgent temporary pacemaker. Patient was draped and prepped in sterile fashion. Prior to the procedure, his brother was called on 4 different occasions, but could not be reached. It was felt this was urgent and proceeded. Patient was draped and prepped in sterile fashion. Access was obtained in the left femoral vein under ultrasound guidance. The pacemaker was placed appropriately into the right ventricle. Initial thresholds were excellent. Settings were placed at 70 with 5 output. IMPRESSION: Successful temporary pacemaker. Job ID: [id number]
[2020-06-28] MEDS ORDERED: Heparin 25,000 units/D5W 500 ML IVPB SCH (07:45)
[2020-06-28] MEDS ORDERED: Heparin 10,000 UNITS/ 10 ML VIAL SLOW IVP SCH (07:45)
--- NOTE | 2020-06-28 07:50 | RAD ---
XR Chest 1 View Portable History: Ventilated patient Comparison: Radiograph prior day Findings: Endotracheal tube tip at the clavicular level. Enteric tube tip gastric body. Defibrillator pad projects over the left hemithorax. Moderate layering effusions and bibasilar atelec tatic changes. The right paratracheal stripe is not quite as thick as the prior exam. The aorta continues to be ectatic. Possible catheter projects over the right hemiabdomen and may terminate at the right ventricle. Impression: Slight improved right upper lung aeration.
[2020-06-28 08:13] LABS: Hemoglobin 9.8 g/dL (14.0-18.0); Platelet Count 101 thou/uL (130-400)
[2020-06-28 08:59] LABS: Actual Bicarbonate (HCO3a) 19.3 mEq/L (22-28); Base Excess (BEa) -3.1 mEq/L (-2.0 to +3.0); CO2 Tension 26.5 mmHg (35.0-45.0); Carboxyhemoglobin (COHb) 0.1 gm% (0.0-3.0); Hemoglobin (Hb) 10.9 g/dL (14.0-18.0); O2 Tension (PaO2), arterial 151.4 mmHg (> 70.0); Potassium - ABG Lab 3.67 mmol/L (3.70-5.30); pH, Arterial 7.48 (7.35-7.45)
[2020-06-28] MEDS ORDERED: Heparin 5,000 UNITS/ML VIAL SC SCH (09:00)
[2020-06-28 09:09] LABS: ALV-art Gradient 171.975 mmHg (0-20); Puncture Site Arterial Line
[2020-06-28] MEDS: Pantoprazole 40 MG VIAL IVP SCH (09:13)
--- NOTE | 2020-06-28 09:42 | PRG ---
DATE OF SERVICE: 06/28/2020 SUBJECTIVE: Ad Lobato is a 75-year-old gentleman status post prolonged CPR, cardiac arrest this morning. His sedation is off, off the hypothermia protocol. Pupils are equal, not reactive. OBJECTIVE: VITAL SIGNS: Temperature 98, blood pressure 139/65 here. He is still on some pressors. Saturations are 100%, rate of . CHEST: Decreased breath sounds, no wheezing. CARDIAC: Normal S1, S2. No gallops. ABDOMEN: Soft. LABORATORY DATA: Creatinine 2.38. White count 18,000, H and H 11 and 33. IMAGING STUDIES: X-ray shows pleural effusion. ASSESSMENT: Respiratory failure status post cardiac arrest. PLAN: Pulmonary daniel sedation. We will reassess the situation once his sedation is completed withheld, probably anoxic, probably needs EEG in the next 24 to 48 hours. Empiric antibiotics. One-half hour of critical time. Job ID: [id number]
[2020-06-28] MEDS: Heparin 10,000 UNITS/ 10 ML VIAL SLOW IVP SCH ×2 (09:55→23:10)
[2020-06-28] MEDS: Heparin 25,000 units/D5W 500 ML IV SCH (09:56)
[2020-06-28] MEDS: cefTRIAXone\\ROCEPHIN 1 GM in Sodium Chloride 0.9% 100 ML IVPB SCH (10:03)
[2020-06-28] MEDS: Vancomycin 1.5 GRAM/300 ML BAG 1.5 GM in Premix Bag 1 BAG IVPB SCH (11:57)
--- NOTE | 2020-06-28 13:58 | PRG ---
DATE OF SERVICE: 06/28/2020 SUBJECTIVE: Mr. Lobato continues to be intubated. He is off all pressors. He did undergo urgent temporary pacemaker due to consistent bradycardia yesterday. He has not been pacer dependent through the evening. OBJECTIVE: VITAL SIGNS: Blood pressure appears stable. Blood pressure 129/70, pulse 61, temperature afebrile. LUNGS: Clear to auscultation. HEART: Regular rate and rhythm. ABDOMEN: Soft, nontender, nondistended. EXTREMITIES: No edema. PERTINENT LABORATORY DATA: Hemoglobin 9.8. Creatinine 2.38. IMPRESSION: 1. Cardiac arrest. 2. Respiratory failure. 3. Bradycardia, requiring temporary pacemaker. RECOMMENDATIONS: Mr. Lobato is no longer dependent on pressors. Plan would be to continue anticoagulation therapy due to atrial flutter yesterday. Etiology to current demise is unknown. This may have been a makeda event versus a malignant dysrhythmia. We will review his echo. From a CV standpoint, would recommend coronary angiography if neurologically he is intact after stopping sedation and after being weaned off. Job ID: [id number]
[2020-06-28] MEDS ORDERED: Fentanyl CADD 100 ML ONE (20:40)
[2020-06-29] MEDS: Propofol 1,000 MG/100 ML VIAL IV PRN (04:43)
[2020-06-29 05:39] LABS: #Eosinphils 0.1 thou/uL (0.0-0.7); #Lymphocytes 1.3 thou/uL (1.20-3.40); #Monocytes 0.8 thou/uL (0.11-0.59); #Neutrophils 7.2 thou/uL (1.40-6.50); %Basophils 0.1 % (0.0-1.0); %Eosinophils 0.8 % (0.0-10.0); %Lymphocytes 13.8 % (21.0-51.0); %Monocytes 8.9 % (0.0-10.0); %Neutrophils 76.4 % (42.0-75.0); Hemoglobin 9.1 g/dL (14.0-18.0); Mean Corpuscular Volume 87.9 fL (78.0-98.0); Mean Platelet Volume 10.4 fL (7.4-10.4); Platelet Count 75 thou/uL (130-400); Red Blood Cell (RBC) Count 3.14 mill/uL (4.70-6.10); White Blood Cell (WBC) Count 9.5 thou/uL (4.8-10.8)
[2020-06-29 05:58] LABS: Anion Gap 12 mmol/L (10-20); BUN (Urea Nitrogen) 49 mg/dL (8.4-25.7); Calc. Creatinine Clearance 40 mL/min (70-130); Calcium 7.5 mg/dL (7.8-10.44); Carbon Dioxide 20 mmol/L (23-31); Chloride 113 mmol/L (98-107); Glucose 148 mg/dL (83-110); Potassium 3.4 mmol/L (3.5-5.1); Sodium 142 mmol/L (136-145)
[2020-06-29] MEDS: Pantoprazole 40 MG VIAL IVP SCH (08:34)
[2020-06-29] MEDS: cefTRIAXone\\ROCEPHIN 1 GM in Sodium Chloride 0.9% 100 ML IVPB SCH (08:36)
[2020-06-29] MEDS ORDERED: DC Sedation Protocol FS ONE (08:41)
--- NOTE | 2020-06-29 08:59 | PDOC.FM ---
- Subjective Subjective: Mr. Lobato was awake this morning and following commands very well. He was very anxious to be extubated and biting the tube. He tolerated extubation well and nursing staff at bedside watching him closely now. decreased urine output. fluids were at 50 ml/hr and now increased to 100 ml/hr to help kidney function. MAPs 80's HR 60 paced NSR plt's decreasing - Objective MAR Reviewed: Yes Vital Signs & Weight: Vital Signs (12 hours) Temp Pulse Resp Pulse Ox 06/29/20 08:50 60 26 H 95 06/29/20 07:32 60 06/29/20 06:00 18 06/29/20 04:00 97.8 F 16 06/29/20 02:00 18 06/29/20 01:16 60 06/29/20 00:00 98.8 F 18 06/28/20 22:28 60 06/28/20 22:00 18 Weight Admit Weight 108.862 kg Weight 107.2 kg Most Recent Monitor Data Heart Rate from ECG 60 NIBP 126/71 NIBP BP-Mean 89 Respiration from ECG 19 SpO2 99 I&O: 06/28/20 06/29/20 06/30/20 06:59 06:59 06:59 Intake Total 1190.8 3454.5 Output Total 135 755 Balance 1055.8 2699.5 Result Diagrams: 06/29/20 14:40 06/29/20 05:15 Phys Exam - Physical Examination awake and responding to commands well. HEENT: moist MMs, sclera anicteric Neck: no JVD Respiratory: wheezing present Cardiovascular: RRR, no significant murmur Gastrointestinal: soft, no distention, positive bowel sounds Musculoskeletal: pulses present Neurological: moves all 4 limbs follows commands Deviation from normal: anxious affect, awake Skin: cap refill <2 seconds Dx/Plan (1) Cardiogenic shock Code(s): R57.0 - CARDIOGENIC SHOCK Status: Resolved (2) Atrial flutter Code(s): I48.92 - UNSPECIFIED ATRIAL FLUTTER Status: Acute (3) Hypokalemia Code(s): E87.6 - HYPOKALEMIA Status: Acute (4) Normocytic anemia Code(s): D64.9 - ANEMIA, UNSPECIFIED Status: Acute (5) IDDM (insulin dependent diabetes mellitus) Code(s): QNU2148 - Status: Acute (6) HTN (hypertension) Code(s): I10 - ESSENTIAL (PRIMARY) HYPERTENSION Status: Acute (7) HLD (hyperlipidemia) Code(s): E78.5 - HYPERLIPIDEMIA, UNSPECIFIED Status: Acute - Plan Plan: 75 y/o male ROSC achieved in field by EMT after cardiac arrest with cardiogenic shock. 1. Cardiogenic shock, resolved - Chest compressions and intubation initiated in the field. V. fib rhythm strip per EMS upon arrival to the ED. - EKG: atrial flutter with rate of 40 - Cardiology Dr. Gaines consulted form ER by Dr. Feliz. Recommending no Cath at admission. However overnight the pt became symptomatic without a reading BP and HR in the 20's. Central line was placed, percutaneous pacing initiated and dopamine and dobutamine started. Pt was taken for a temporary pacer by Dr. Gaines. Strated on heparine ggt on 06/28 for a flutter and in case coronary occlusion. Off pressor support 06/29. Extubated on 06/29. Cardiology plans to proceed with angiography in the next couple of days. - Echo: EF 50-55%, mild LVH, mild TR, MR. Mod AR. - In setting of possible anoxic brain injury pt received 32-34 Celsius for several hours, which was discontinued as might have been further contributing to bradycardia. Pt is awake and tolerated extubation on 06/29. - IV protonix daily - dairy farm manager consulted for dietary needs 06/28. Will get speech consult and dete rmine swallow safety, now that extubated. 2. Suspected cardiac arrhythmia as cause of sudden cardiogenic arrest - Ordered TSH, Mag, Phos, electrolytes and UDS al nml. - Echo and cards consult. see above for documented details. 3. Atrial flutter with bradycardia, resolved - EKG showed a flutter wtih rate of 40's - perfusing well with elevated BP and 2+ pulses radial, and dorsalis pedis upon admission, but developed symptoms of hypotension and HR 20's 06/27 overnight. see note from night team. taken for temporary pacer and now stable. Plan for angiography in the next couple of days with cards. - Pt in NSR rate 60 - Heparin ggt, plt 75, will redraw plt @ 1500 and if continued decrease will need to stop heparin GGT. - Cards consulted, appreciate recs 4. Elevated Troponins. - likely secondary to CPR/defibrillation, differnetial does include ischemia, arrhythmia. Refer to Cardiology note for type. Dr. Gaines does not presume this to be occlusive process as the amount of rise in trop does not represent occlusion, but rather post CPR/defibrillation. - Trops: 0.075 > 0.296 > 0.952 - Dr. Gaines consulted for cards, does not plan to take to cath today, had pacer placed overnight 06/27. - heparin drip at this time per cards recs. 5. Acute hypoxic resp failure - requiring intubation - Pulm consulted for vent management in ICU - dark spurutm suctioned and fevers on admission. cultured sputum and started vanc plus rocephin. blood and urine ccx as well. 6. ELÍAS - most likely secondary to cargiogenic shock and hypoperfusion temporarily. - will monitor and treat the cause. - IVF hydration increased from 50 ml/hr to 100 ml/hr due to decreased urine output ~30 ml/hr. Also gave 500 ml NS bolus. will continue to monitor closely. 7. Hx of DM - insure of regimen, will seek records - A1C 6.4% - SSI mild - AC/HS accuchecks 8. Hx of HTN - hold antihypertensive medications at this time as pt perfusion is adequate 9. Hypokalemia - will replace IV as PRN 10. Normocytic anemia - will further work up once stable 11. 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 Dispo: admit to CCU, inpt. >48 hr anticipated. Addendum - Attending - Attending Attestation Date/Time: 06/29/20 1558 I personally evaluated the patient and discussed the management with Dr. Pruitt. I agree with the History, Examination, Assessment and Plan documented above with any addition or exceptions noted below.
[2020-06-29] MEDS ORDERED: Sodium Chloride 0.9% 500 ML IV SCH (09:30)
[2020-06-29] MEDS ORDERED: Lactated Ringer's 500 ML IV SCH (09:30)
--- NOTE | 2020-06-29 09:30 | PRG ---
DATE OF SERVICE: 06/29/2020 SUBJECTIVE: Ad Lobato is a 75-year-old gentleman who this morning is awake, alert, responsive to my surprise. He had prolonged CPR. X-ray shows much improvement. Cardiology states his EF is 50%. OBJECTIVE: VITAL SIGNS: Temperature 97, pulse 60 transvenous pacemaker, blood pressure 140/80, respiratory rate 18. His Is and Os have been consistently positive. CHEST: No wheezing, no crackles. CARDIAC: Normal S1, S2. ABDOMEN: No masses. LABORATORY DATA: White count 9000. Creatinine is 2.48, BUN is 49. ASSESSMENT: Respiratory failure, status post cardiopulmonary arrest, prolonged cardiopulmonary resuscitation, acute coronary syndrome. PLAN: Extubate today. Cardiac cath in the next 24 to 48 hours. Empiric antibiotics. Supportive care, PT. One-half hour of critical time. Job ID: [id number]
--- NOTE | 2020-06-29 09:42 | RAD ---
PORTABLE CHEST: HISTORY: Respiratory distress. COMPARISON: Prior day's study. FINDINGS: The endotracheal and NG tubes are in satisfactory position. Heart size is enlarged. Predominantly b ibasilar lung changes are present. The changes in the right base appear improved. IMPRESSION: Some improvement to the right basilar parenchymal lung changes. Suggestion of reduction in right-daljit ed effusion. Left-sided changes were similar. POS: [facility]
--- NOTE | 2020-06-29 09:49 | PRG ---
DATE OF SERVICE: 06/29/2020 SUBJECTIVE: Mr. Lobato is waking up. He continues to be intubated. He appears to be answering questions appropriately. OBJECTIVE: VITAL SIGNS: Blood pressure 126/71, pulse 60, and respirations 20. LUNGS: Clear to auscultation with mild rhonchi. HEART: Regular rate and rhythm. ABDOMEN: Soft, nontender, and nondistended. EXTREMITIES: 1+ pitting edema. PERTINENT LABORATORY DATA: Hemoglobin 9.1, platelet count is 75 down from 101. IMPRESSION: 1. [id number] arrest. 2. Thrombocytopenia. RECOMMENDATIONS: Etiology to current demise is unknown. Plan is to proceed with coronary angiography once he is extubated. He still has some likely metabolic encephalopathy. I would like to go over the events and consent Mr. Lobato. His platelet count has decreased from 128 to 75. We will recheck in 12 hours. If continued decline, we then stop heparin. His heart rate appears to be stable. Job ID: [id number]
[2020-06-29] MEDS: Potassium Chloride 20 MEQ in Premix Bag 1 BAG IVPB SCH ×2 (10:37→13:14)
[2020-06-29] MEDS: Heparin 25,000 units/D5W 500 ML IV SCH (10:40)
[2020-06-29] MEDS: Vancomycin 1.5 GRAM/300 ML BAG 1.5 GM in Premix Bag 1 BAG IVPB SCH (10:41)
--- NOTE | 2020-06-29 12:35 | PDOC.PALCO ---
Palliative Care Consult - Consult Details Requesting Physician: Dr Martinez Reason for Consult: goals of care, advance directives assistance - Pertinent HPI 75 year old male with a witnessed cardiac arrest and CPR initiated by bystander. EMS was activated, continues CPR/intubated in field and transported to [facility] emergency room for further evaluation. In emergency room rn cardiac cath not indicated secondary to lack of ST segment elevations and lack of patient responsiveness. Cooling initiated, patient was admitted for further evaluation and medical management. - Allergies Allergies/Adverse Reactions: Allergies Allergy/AdvReac Type Severity Reaction Status Date / Time No Known Allergies Allergy Verified 06/27/20 17:52 - Objective Vital Signs: Vital Signs - Most Recent Temp Pulse Resp BP Pulse Ox 97.9 F 60 26 H 128/54 L 95 06/29/20 07:00 06/29/20 08:50 06/29/20 08:50 06/27/20 16:15 06/29/20 08:50 - Plan/Recommendations Plan: [] minutes spent on this encounter with >50% of the time in counseling and coordination of care. Thank you for this very appropriate consult.
[2020-06-29] MEDS: Sodium Chloride 0.9% 1,000 ML IV SCH ×3 (12:45→20:05)
[2020-06-29] MEDS ORDERED: hydrOXYzine 25 MG TAB PO PRN (13:58)
[2020-06-29 14:52] LABS: Hemoglobin 9.7 g/dL (14.0-18.0)
[2020-06-29] MEDS ORDERED: diphenhydrAMINE 50 MG/ML VIAL ONE (15:16)
[2020-06-29 16:19] LABS: Platelet Count 99 thou/uL (130-400)
[2020-06-29] MEDS: Heparin 10,000 UNITS/ 10 ML VIAL SLOW IVP SCH (17:26)
[2020-06-29] MEDS ORDERED: Communication Order-Pharmacy FS SCH (17:45)
[2020-06-29] MEDS: Atorvastatin Calcium 40 MG TAB PO SCH (20:04)
[2020-06-30 00:19] LABS: PTT 216.7 sec (22.9-36.1)
[2020-06-30 03:22] LABS: #Monocytes 0.9 thou/uL (0.11-0.59); #Neutrophils 7.4 thou/uL (1.40-6.50); %Basophils 0.2 % (0.0-1.0); %Eosinophils 0.2 % (0.0-10.0); %Monocytes 9.5 % (0.0-10.0); %Neutrophils 79.1 % (42.0-75.0); Mean Corpuscular HGB CONC 32.8 g/dL (32.0-36.0); Mean Corpuscular Hemoglobin 28.5 pg (27.0-31.0); Mean Corpuscular Volume 87.1 fL (78.0-98.0); Mean Platelet Volume 11.1 fL (7.4-10.4); Platelet Count 79 thou/uL (130-400); RBC Distribution Width 14.1 % (11.5-14.5); Red Blood Cell (RBC) Count 3.17 mill/uL (4.70-6.10); White Blood Cell (WBC) Count 9.3 thou/uL (4.8-10.8)
[2020-06-30] MEDS: Sodium Chloride 0.9% 1,000 ML IV SCH (03:24)
[2020-06-30] MEDS: Lorazepam 2 MG/ML VIAL SLOW IVP PRN (03:25)
[2020-06-30 03:46] LABS: Anion Gap 18 mmol/L (10-20); BUN (Urea Nitrogen) 57 mg/dL (8.4-25.7); Calc. Creatinine Clearance 42 mL/min (70-130); Calcium 7.6 mg/dL (7.8-10.44); Carbon Dioxide 17 mmol/L (23-31); Chloride 116 mmol/L (98-107); Glucose 128 mg/dL (83-110); Potassium 3.7 mmol/L (3.5-5.1); Sodium 147 mmol/L (136-145)
[2020-06-30] MEDS ORDERED: Heparin 0 ML ONE (06:38)
--- NOTE | 2020-06-30 06:59 | PDOC.FM ---
- Subjective Subjective: MAPs 95 Disconnected temp pacer overnight and HR dropped to 30's. reconnected and HR 50- [address] Gaines taking pt for angiography today, plans for either permanent pacer placement vs open heart sx pending results of cath. renal function slightly improved with better urine output overnight. I/O: 2003/1320 Pt awake and alert, confused and easily agitated - Objective Vital Signs & Weight: Vital Signs (12 hours) Temp Pulse Ox 06/30/20 04:00 98.0 F 06/30/20 01:33 98 06/30/20 00:00 99.0 F 06/29/20 20:00 98 F 99 Weight Admit Weight 108.862 kg Weight 109.2 g Most Recent Monitor Data Heart Rate from ECG 50 NIBP 150/68 NIBP BP-Mean 95 Respiration from ECG 21 SpO2 97 I&O: 06/28/20 06/29/20 06/30/20 06:59 06:59 06:59 Intake Total 1190.8 3454.5 2003 Output Total 331 332 0921 Balance 1055.8 2699.5 684 Result Diagrams: 07/01/20 03:20 07/01/20 03:20 Phys Exam - Physical Examination alseep, but easily arousable. HEENT: PERRLA, moist MMs, sclera anicteric Neck: no JVD, supple diffuse inspiratory rhonchi and exp wheezing. Cardiovascular: RRR, no significant murmur HR 60 Gastrointestinal: soft, no distention, positive bowel sounds Musculoskeletal: pulses present Neurological: moves all 4 limbs Deviation from normal: agittated, alert Skin: normal turgor, cap refill <2 seconds Dx/Plan (1) Cardiogenic shock Code(s): R57.0 - CARDIOGENIC SHOCK Status: Resolved (2) Atrial flutter Code(s): I48.92 - UNSPECIFIED ATRIAL FLUTTER Status: Acute (3) Hypokalemia Code(s): E87.6 - HYPOKALEMIA Status: Acute (4) Normocytic anemia Code(s): D64.9 - ANEMIA, UNSPECIFIED Status: Acute (5) IDDM (insulin dependent diabetes mellitus) Code(s): MMY9403 - Status: Acute (6) HTN (hypertension) Code(s): I10 - ESSENTIAL (PRIMARY) HYPERTENSION Status: Acute (7) HLD (hyperlipidemia) Code(s): E78.5 - HYPERLIPIDEMIA, UNSPECIFIED Status: Acute - Plan Plan: 75 y/o male ROSC achieved in field by EMT after cardiac arrest with cardiogenic shock. 1. Cardiogenic shock, resolved - Chest compressions and intubation initiated in the field. V. fib rhythm strip per EMS upon arrival to the ED. - EKG: atrial flutter with rate of 40 - Cardiology Dr. Gaines consulted form ER by Dr. Feliz. Recommending no Cath at admission. However overnight the pt became symptomatic without a reading BP and HR in the 20's. Central line was placed, percutaneous pacing initiated and dopamine and dobutamine started. Pt was taken for a temporary pacer by Dr. Gaines. Strated on heparine ggt on 06/28 for a flutter and in case coronary occlusion. Off pressor support 06/29. Extubated on 06/29. Cardiology plans to proc eed with angiography today, with pacer placement vs open heart surgery pending results of angiography. - Echo: EF 50-55%, mild LVH, mild TR, MR. Mod AR. - In setting of possible anoxic brain injury pt received 32-34 Celsius for several hours, which was discontinued as might have been further contributing to bradycardia. Pt is awake and tolerated extubation on 06/29. - IV protonix daily - memorial marker designer consulted for dietary needs 06/28. Will get speech consult and determine swallow safety, now that extubated. Not cleared for diet on 06/29. will continue re-eval daily. 2. Suspected cardiac arrhythmia as cause of sudden cardiogenic arrest - Ordered TSH, Mag, Phos, electrolytes and UDS al nml. - Echo and cards consult. see above for documented details. 3. Atrial flutter with bradycardia, resolved - EKG showed a flutter wtih rate of 40's - perfusing well with elevated BP and 2+ pulses radial, and dorsalis pedis upon admission, but developed symptoms of hypotension and HR 20's 06/27 overnight. see note from night team. taken for temporary pacer and now stable. Plan for angiography today. - Pt in NSR rate 60 - Heparin ggt, plt 79, will redraw after cath. - Cards consulted, appreciate recs 4. Elevated Troponins. - likely secondary to CPR/defibrillation, differnetial does include ischemia, arrhythmia. Refer to Cardiology note for type. Dr. Gaines does not presume this to be occlusive process as the amount of rise in trop does not represent occlusion, but rather post CPR/defibrillation. - Trops: 0.075 > 0.296 > 0.952 - Dr. Gaines consulted for cards, does not plan to take to cath today, had pacer placed overnight 06/27. - heparin drip at this time per cards recs. 5. Acute hypoxic resp failure - resolved - requiring intubation - Pulm consulted for vent management in ICU - dark sputum suctioned and fevers on admission. cultured sputum and started vanc plus rocephin. blood and urine ccx as well. Pending results - extubated 6. ELÍAS, possible underlying CKD. - most likely secondary to cargiogenic shock and hypoperfusion temporarily. - will monitor and treat the cause. - IVF hydration increased from 50 ml/hr to 100 ml/hr due to decreased urine output ~30 ml/hr. Also gave 500 ml NS bolus LR this mroning before CATH and contrast. will continue to monitor closely. 7. Hx of DM - insure of regimen, will seek records - A1C 6.4% - SSI mild - AC/HS accuchecks 8. Hx of HTN - hold antihypertensive medications at this time as pt perfusion is adequate 9. Hypokalemia - will replace IV as PRN 10. Normocytic anemia - will further work up once stable 11. Thrombocytopenia - on heparin ggt, likely 2/2 HIT - will repeat plt after cath if continued down trend will stop heparin ggt PCP: Marian Saravia [facility] Code status: full code per TRINIK, brother Ad Lobato DVT ppx: heparin ggt GI ppx: protonix IV due to cardiogenic shock and CCU pt. Dispo: admit to CCU, inpt. >48 hr anticipated. Addendum - Attending - Attending Attestation Date/Time: 07/01/20 [id number] I personally evaluated the patient and discussed the management with Dr. Pruitt yesterday. I agree with the History, Examination, Assessment and Plan documented above with any addition or exceptions noted below.
[2020-06-30] MEDS ORDERED: Lactated Ringer's 500 ML IV SCH ×2 (08:15→16:45)
[2020-06-30] MEDS: Ziprasidone 20 MG VIAL IM PRN (08:42)
[2020-06-30] MEDS: Sodium Chloride 0.45% 1,000 ML IV SCH (08:53)
[2020-06-30] MEDS: cefTRIAXone\\ROCEPHIN 1 GM in Sodium Chloride 0.9% 100 ML IVPB SCH (08:55)
--- NOTE | 2020-06-30 08:59 | PRG ---
DATE OF SERVICE: 06/30/2020 SUBJECTIVE: Ad Lobato remains in the ICU, was extubated, in no distress. His saturations are 97% on 4 L, pulse 51, blood pressure 150/80, respirations 20. His I's and O's are slightly ahead. He was encephalopathic last night, received some Geodon. OBJECTIVE: CHEST: No wheezing. No crackles. CARDIAC: Normal S1 and S2. ABDOMEN: No masses. ASSESSMENT AND PLAN: 1. Status post prolonged CPR. 2. Encephalopathy. 3. Renal failure. 4. Normal EF. IV has been adjusted. Discontinue vancomycin. Nothing to suspect Staph. Continue empiric Rocephin. We will follow. Job ID: [id number]
[2020-06-30] MEDS ORDERED: Lidocaine 1% PF 5 ML VIAL ONE (09:23)
[2020-06-30] MEDS ORDERED: Rocuronium Bromide 10 MG/ML (10ML VIAL) ONE (09:23)
[2020-06-30] MEDS ORDERED: PROPOFOL 200 MG/20 ML VIAL ONE (09:23)
[2020-06-30] MEDS ORDERED: Ondansetron PF 4 MG/2 ML Vial ONE (09:23)
--- NOTE | 2020-06-30 09:32 | PRG ---
DATE OF SERVICE: 06/30/2020 SUBJECTIVE: Mr. Lobato is more awake. He answers questions appropriately on knowing who his brother is and where he lives. The patient though is agitated. He is currently in four-point restraints due to continued agitation and movement. In the middle of the night, he disconnected his pacemaker and his heart rate dropped into the 20s. He is currently pacer dependent. I discussed proceeding with coronary angiography with his brother yesterday in full detail. Risks include but not limited to the following: , stroke, MO, need for emergency surgery, loss of limb, bleeding, and infection, as well as a reaction to the dye causing kidney failure and needing long-term dialysis. I also discussed the risks of PCI to include all of the above including coronary dissection and perforation in addition to acute stent thrombosis and restenosis. All questions about the procedure were answered. Given the above, the patient agreed to proceed with coronary angiography and possible PCI. He gave consent. Given that his creatinine is elevated, we will proceed with diagnostic angio only. His creatinine has improved slightly overnight after 1200 mL of fluid. I initially wanted to wait until Friday and have his kidney function continued to improve, but given that his temporary pacemaker as well had been in for 6 days on Friday and intermittent confusion with recent disconnection and patient being pacer dependent, would recommend angio only to assess his coronary anatomy and assess whether he needs bypass versus only ICD. Discussed case in full detail with , who is in agreement. Job ID: [id number]
[2020-06-30] MEDS ORDERED: Iopamidol 370 76% 100 ML VIAL ONE (10:21)
[2020-06-30] MEDS ORDERED: Fentanyl 100 MCG/2 ML VIAL ONE (10:34)
[2020-06-30 10:57] LABS: HBCM Index 0.07 S/CO (0-0.79); HBSAB Concentration Less than 8.00 mIU/mL; HBSAg Index 0.21 S/CO (0-0.99); HIV (1/2) Antibody/Antigen Non-Reactive (NonReactive); Hep B Core Total Ab Non-Reactive (NonReactive); Hep B Core Total Index 0.06 S/CO (0-0.79); Hep B Surf AB Non-Reactive (NonReactive); Hep B Surf Ag Non-Reactive S/CO (NonReactive); Hepatitis B Core IgM Abs Non-Reactive (NonReactive)
[2020-06-30] MEDS ORDERED: Gentamicin 80 MG/2 ML VIAL ONE ×2 (11:36→11:45)
[2020-06-30] MEDS ORDERED: CEFAZOLIN 1 GM VIAL ONE ×3 (11:36→11:45)
[2020-06-30] MEDS ORDERED: SUGAMMADEX SODIUM 200 MG/2 ML VIAL ONE (12:57)
--- NOTE | 2020-06-30 13:31 | CON ---
DATE OF CONSULTATION: 06/30/2020 ADDITIONAL REFERRING PHYSICIAN: Mitchell Gaines MD. HISTORY OF PRESENT ILLNESS: I am seeing Mr. Lobato at our [facility] ICU as an electrophysiology analytical consultant. His problems are: 1. Complete AV block. a. Temporary pacemaker implanted on 06/27/2020. b. Presentation with VF arrest requiring ACLS on 06/27/2020. c. Anoxic encephalopathy. d. Preserved LVEF on echo 06/28/2020, at 50% to 55%, mild concerning LVH, mild mitral, moderate aortic regurgitation, mild tricuspid regurgitation. e. Paroxysmal atrial flutter, possible typical isthmus dependent on EKG on 06/27/2020, now back in sinus rhythm with third-degree AV block. f. Hypoxic respiratory failure, requiring intubation, now extubated. 2. History of diabetes. 3. History of hypertension. 4. Normocytic anemia. ALLERGIES: NONE NOTED. MEDICATIONS: At home included: 1. Metformin. 2. Lisinopril. 3. HCTZ. 4. Lipitor. 5. Diltiazem. 6. Aspirin. 7. Multivitamin. 8. Cinnamon bark. SUBJECTIVE: Mr. Lobato still a very poor historian. He is alert, oriented times none. 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 Chest compressions were started. EMS was arrived, intubated on the field. CPR and defibrillation were performed. He also received lidocaine on the field. On arrival, he was noted to be in atrial flutter with slow ventricular response in the 40s. Eventually evaluated by Dr. Gaines and a temporary pacemaker was placed. Subsequently, the patient recovered into sinus rhythm, but high-grade AV block persisted. Currently still pacemaker dependent. I was consulted for further EP management. Currently, no acute distress is noted, but the patient is still fully disoriented. He has no signs of fever, chills, cough, nausea, or vomiting. No respiratory distress. No PND or orthopnea. During the hospital course, the patient did undergo a cooling protocol after the resuscitation. REVIEW OF SYSTEMS: Rest of 12-point review of systems otherwise unremarkable. PAST MEDICAL HISTORY: As above. No prior heart disease or heart attacks are documented. 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 He is not . He has a girlfriend. His next of kin is brother. No history of smoking, EtOH, or drug abuse. FAMILY HISTORY: Not contributory. PHYSICAL EXAMINATION: VITAL SIGNS: Blood pressure 160/65, heart rate 50, respirations 26, temperature 97.7 this morning. GENERAL: The physical exam reveals an alert and oriented x0 man in no apparent distress. NECK: Supple. Jugular veins not distended. CHEST: Coarse without crackles. HEART: Sounds are regular to rate and rhythm. No murmur or gallop is appreciated. ABDOMEN: Benign. Bowel sounds positive. LOWER EXTREMITIES: Without edema, clubbing, or cyanosis. A right femoral temporary pacemaker wire is in place. DATABASE: EKG is reviewed. Initial EKG reveals an atrial flutter, possibly typical isthmus dependent in morphology with high-grade AV block, ventricular response about 40 beats per minute. The conducted beats have right bundle morphology, is left axis. It is a regular rhythm, possibly junctional escape cannot be ruled out. The telemetry strips subsequently reviewed reveals moravian of sinus rhythm, but a complete AV block is noted. Lowering the temporary pacemaker rate reveals no escape rhythm. Brain CT, no acute hemorrhage. Chest x-ray done on admission shows ET tube in place, cardiomegaly. LABORATORY DATA: White cell count 9.3, hemoglobin 9, platelet count is 79. PTT 31. Sodium 147, potassium 3.7, BUN 57, creatinine 2.32, baseline was 1.82 on the . Troponin levels 0.075, 0.296, and 0.952, the first three measurements. TSH 2.578. ASSESSMENT AND PLAN: Mr. Duong is a 75-year-old man with prior history of diabetes, hypertension, hyperlipidemia, who was presenting with [id number] cardiac arrest. The initial rhythm was ventricular fibrillation per notes and he did receive a defibrillation shock. No EKG strips of VF is available. In our ER the initialEKG is with atrial flutter with slow ventricular response, but later converted back to sinus rhythm and he is noted to be in complete AV block. He required temporary pacemaker which is in since the . His LVEF was normal. The troponin levels were elevated. Future management likely will depend on his coronary status. Dr. Gaines is planning to have a left heart catheterization done today. Should he indeed be have severe coronary artery disease giving rise to significant ischemia that is likely could be the cause for his ventricular fibrillation. Revascularization might be recommended in that case. On the other hand, if no revascularization can be done, we might need to deal with his complete AV block with further pacing device. Options include temporary pacemaker placement in a more secured fashion from the right IJ versus permanent pacemaker defibrillator device placement. Risks and benefits were discussed with Dr. Gaines, anesthesiologist, and also the family has given verbal consent. We are awaiting for the results of left heart catheterization and further decision should be made from that. Job ID: [id number] [facility]
--- NOTE | 2020-06-30 13:52 | RAD ---
XR Chest 1 View History: Pacemaker placement Comparison: Radiograph prior day Findings: Patient has been extubated and the enteric tube has been removed. Dual-lead AICD/pacer elec trode tips project over the right atrial appendage and right ventricle. No pneumothorax. Small effusions and mild pulmonary edema. Impression: Uncomplicated placement of AICD/pacer.
[2020-06-30] MEDS: Atorvastatin Calcium 40 MG TAB PO SCH (20:10)
[2020-06-30] MEDS: CEFAZOLIN 2 GM in Premix Bag 1 BAG IVPB SCH (20:10)
[2020-07-01 03:56] LABS: Anion Gap 17 mmol/L (10-20); BUN (Urea Nitrogen) 49 mg/dL (8.4-25.7); Calc. Creatinine Clearance 55 mL/min (70-130); Calcium 7.8 mg/dL (7.8-10.44); Carbon Dioxide 17 mmol/L (23-31); Chloride 116 mmol/L (98-107); Glucose 106 mg/dL (83-110); Potassium 3.7 mmol/L (3.5-5.1); Sodium 146 mmol/L (136-145)
[2020-07-01 04:07] LABS: #Eosinphils 0.1 thou/uL (0.0-0.7); #Lymphocytes 0.8 thou/uL (1.20-3.40); #Monocytes 0.9 thou/uL (0.11-0.59); #Neutrophils 7.4 thou/uL (1.40-6.50); %Basophils 0.3 % (0.0-1.0); %Eosinophils 0.8 % (0.0-10.0); %Monocytes 9.6 % (0.0-10.0); %Neutrophils 80.3 % (42.0-75.0); Hemoglobin 9.5 g/dL (14.0-18.0); Mean Corpuscular HGB CONC 33.5 g/dL (32.0-36.0); Mean Corpuscular Volume 86.5 fL (78.0-98.0); Mean Platelet Volume 10.7 fL (7.4-10.4); Platelet Count 82 thou/uL (130-400); RBC Distribution Width 13.9 % (11.5-14.5); Red Blood Cell (RBC) Count 3.27 mill/uL (4.70-6.10); White Blood Cell (WBC) Count 9.2 thou/uL (4.8-10.8)
[2020-07-01] MEDS ORDERED: Sterile Water 10 ML ONE ×2 (04:20→12:53)
[2020-07-01] MEDS: Sodium Chloride 0.45% 1,000 ML IV SCH ×3 (04:21→22:29)
[2020-07-01] MEDS: CEFAZOLIN 2 GM in Premix Bag 1 BAG IVPB SCH (04:22)
[2020-07-01] MEDS: Ziprasidone 20 MG VIAL IM PRN ×3 (04:22→22:11)
--- NOTE | 2020-07-01 06:47 | PDOC.FM ---
- Subjective Subjective: elevated BP's overnight nurse delatorre snot think pt would pass swallow study. will have speech eval. improved renal function with increased urine output form yesterday cath yesterday without significant occlusions. AICD and pacer placed Pt sleeping this AM. awakens and can answer questions and respond to commands. MAPs 75's - Objective MAR Reviewed: Yes Vital Signs & Weight: Vital Signs (12 hours) Temp Pulse Ox 07/01/20 04:00 97.9 F 07/01/20 02:17 99 07/01/20 00:00 99.6 F 06/30/20 20:00 98.7 F 98 06/30/20 19:44 98 Weight Admit Weight 108.862 kg Weight 109.5 kg Most Recent Monitor Data Heart Rate from ECG 75 NIBP 158/92 NIBP BP-Mean 114 Respiration from ECG 20 SpO2 96 I&O: 06/29/20 06/30/20 07/01/20 06:59 06:59 06:59 Intake Total 3454.5 2004 2887 Output Total 755 1320 1955 Balance 2699.5 684 932 Result Diagrams: 07/01/20 03:20 07/01/20 03:20 Phys Exam - Physical Examination somnolent, but arousable. Oriented to person and place. HEENT: PERRLA, moist MMs Neck: supple scattered rhonchi with coarse breath sounds and oropharyngeal secretions Cardiovascular: RRR, no significant murmur Gastrointestinal: soft, no distention, positive bowel sounds Musculoskeletal: no edema, pulses present Neurological: moves all 4 limbs Deviation from normal: OX2, confused to situation and slow/slurred speech. Skin: normal turgor, cap refill <2 seconds Dx/Plan (1) Cardiogenic shock Code(s): R57.0 - CARDIOGENIC SHOCK Status: Resolved (2) Atrial flutter Code(s): I48.92 - UNSPECIFIED ATRIAL FLUTTER Status: Acute (3) Hypokalemia Code(s): E87.6 - HYPOKALEMIA Status: Acute (4) Normocytic anemia Code(s): D64.9 - ANEMIA, UNSPECIFIED Status: Acute (5) IDDM (insulin dependent diabetes mellitus) Code(s): YGO5139 - Status: Acute (6) HTN (hypertension) Code(s): I10 - ESSENTIAL (PRIMARY) HYPERTENSION Status: Acute (7) HLD (hyperlipidemia) Code(s): E78.5 - HYPERLIPIDEMIA, UNSPECIFIED Status: Acute - Plan Plan: 75 y/o male ROSC achieved in field by EMT after cardiac arrest with cardiogenic shock. 1. Cardiogenic shock, resolved - Chest compressions and intubation initiated in the field. V. fib rhythm strip per EMS upon arrival to the ED. - EKG: atrial flutter with rate of 40 - Cardiology Dr. Gaines consulted form ER by Dr. Feliz. Recommending no Cath at admission. However overnight the pt became symptomatic without a reading BP and HR in the 20's. Central line was placed, percutaneous pacing initiated and dopamine and dobutamine started. Pt was taken for a temporary pacer by Dr. Gaines. Strated on heparin ggt on 06/28 for a flutter and in case coronary occlusion. Off pressor support 06/29. Extubated on 06/29. Cardiology plans to proceed with angiography today, with pacer placement vs open heart surgery pending results of angiography. Heparin ggt d/c's and changed to ppx dose due to low plt count. will jonas with plt <85k. - Echo: EF 50-55%, mild LVH, mild TR, MR. Mod AR. - In setting of possible anoxic brain injury pt received 32-34 Celsius for several hours, which was discontinued as might have been further contributing to bradycardia. Pt is awake and tolerated extubation on 06/29. - IV protonix daily - semiconductor processor consulted for dietary needs 06/28. Will get speech consult and determine swallow safety, now that extubated. Not cleared for diet on 06/29 or . will continue re-eval daily. 2. Suspected cardiac arrhythmia as cause of sudden cardiogenic arrest - Ordered TSH, Mag, Phos, electrolytes and UDS al nml. - Echo and cards consult. see above for documented details. - Dr. Madera placed AICD and pacer on 06/30. Pt tolerated procedure well and RRR. 3. Atrial flutter with bradycardia, resolved - EKG showed a flutter wtih rate of 40's - perfusing well with elevated BP and 2+ pulses radial, and dorsalis pedis upon admission, but developed symptoms of hypotension and HR 20's 1/12 overnight. see note from night team. taken for temporary pacer 06/27. Angiography by Dr. Gaines, on 06/30 showed no significant occlusion and permanent pacer and AICD placed by Dr. Madera. - Pt in NSR rate 60 - 70's - Heparin ggt d/c'd now NSR. - Cards consulted, appreciate recs 4. Elevated Troponins. - likely secondary to CPR/defibrillation, differnetial does include ischemia, arrhythmia. Refer to Cardiology note for type. Dr. Gaines does not presume this to be occlusive process as the amount of rise in trop does not represent occlusion, but rather post CPR/defibrillation. - Trops: 0.075 > 0.296 > 0.952 - Dr. Gaines consulted for cards. - heparin drip d/c'd and at ppx dose. hold if plt <85k. 5. Acute hypoxic resp failure - resolved - requiring intubation - Pulm consulted for vent management in ICU - dark sputum suctioned and fevers on admission. cultured sputum and started vanc plus rocephin. Rocephin only on 06/30. blood and urine ccx as well. Pending results - extubated and tolerating RA. 6. ELÍAS, possible underlying CKD. - most likely secondary to cargiogenic shock and hypoperfusion temporarily. - will monitor and treat the cause. - IVF hydration increased from 50 ml/hr to 100 ml/hr due to decreased urine output ~30 ml/hr. Also gave 500 ml NS bolus LR this mroning before CATH and contrast. IVF's swithced to 100 ml/hr 1/2 NS due to slight hypernatremia. will continue to monitor closely. - urine output increasing and ELÍAS improving. 7. Hx of DM - insure of regimen, will seek records - A1C 6.4% - SSI mild - AC/HS accuchecks 8. Hx of HTN - will start some PRN IV hydralazine for sys>180 9. Hypokalemia, improved - will replace IV as PRN 10. Normocytic anemia - will further work up once stable - anemia labs ordered. 11. Thrombocytopenia - on heparin ggt, likely 2/2 medications. heparin ggt d/c'd and chenges to ppx dose. hold if plt <85k. - plt on 07/01: 82k PCP: Marian Saravia [facility] Code status: full code per TRINIK, brother Ad Lobato DVT ppx: heparin ppx, hold if plt <85k GI ppx: protonix IV due to cardiogenic shock and CCU pt. will transition to PO once tolerating diet. Dispo: admit to CCU, inpt. >48 hr anticipated. Addendum - Attending - Attending Attestation Date/Time: 07/01/20 7658 I personally evaluated the patient and discussed the management with Dr. Pruitt. I agree with the History, Examination, Assessment and Plan documented above with any addition or exceptions noted below. Patient was sleeping for the first time during the hospitalization. Had biventricular pacer placed yesterday. Will restart bp meds when safe to swallow.
--- NOTE | 2020-07-01 08:15 | RAD ---
XR Chest 1 View Portable History: Ventilated patient Comparison: Radiograph prior day Findings: AICD/pacer is similar. Slight increase right middle lobe and left basilar airspace opacity. No pneumothorax. Impression: Slight improved confluent right middle lobe and left lower lobe airspace opacities which may reflect atelectasis or developing infection.
[2020-07-01] MEDS ORDERED: Heparin 5,000 UNITS/ML VIAL SC SCH (09:00)
[2020-07-01] MEDS: cefTRIAXone\\ROCEPHIN 1 GM in Sodium Chloride 0.9% 100 ML IVPB SCH (09:25)
--- NOTE | 2020-07-01 09:47 | PRG ---
DATE OF SERVICE: 07/01/2020 SUBJECTIVE: Mr. Lobato is oriented x1. He is very restless. REVIEW OF SYSTEMS: Not obtainable. OBJECTIVE: VITAL SIGNS: Blood pressure is variable, most recently 153/77; pulse 75. LUNGS: Clear. CARDIAC: Normal S1, normal S2. ABDOMEN: Obese, nontender. EXTREMITIES: Warm and dry. ASSESSMENT: 1. Status post episode of ventricular fibrillation. 2. Successful defibrillator implantation. PLAN: Continue current medical regimen, unable to take oral medicines yet. We will add low-dose beta-blockers to help with heart rate and blood pressure. Avoid REID inhibitors with renal insufficiency at this time. Job ID: [id number]
--- NOTE | 2020-07-01 11:10 | PRG ---
DATE OF SERVICE: 07/01/2020 SUBJECTIVE: The patient is currently sleeping and had not slept in several days. He appears calm. OBJECTIVE: VITAL SIGNS: Temperature 98.7, pulse 69, blood pressure 170/85, O2 saturation 95%. 24-hour intake 2887, output 1955. HEENT: Unremarkable. NECK: No JVD. LUNGS: Clear. CARDIAC: S1, S2, paced. ABDOMEN: Soft. EXTREMITIES: No edema. LABORATORY DATA: Sodium 146, potassium 3.7, chloride 116, CO2 of 17, BUN 49, creatinine 1.7, glucose 106. White blood cell count 9.2, hematocrit 28.3, and platelet count 82. ASSESSMENT: 1. Status post prolonged cardiopulmonary arrest. 2. Encephalopathy. 3. Renal failure. 4. Status post pacemaker placement. PLAN: The patient appears stable hemodynamically. Main issue now is encephalopathy. Hopefully, that will improve to the point where we would feel comfortable moving him out to the floor. I reviewed his labs and everything appears to be stable at this time. Job ID: [id number]
[2020-07-01] MEDS: Metoprolol Tartrate 5 MG/5 ML VIAL IVP SCH ×2 (11:53→18:03)
[2020-07-01] MEDS: Cephalexin 250 MG CAP PO SCH ×2 (12:28→18:02)
--- NOTE | 2020-07-01 14:21 | EKG ---
Test Reason : Blood Pressure : / mmHG Vent. Rate : 040 BPM Atrial Rate : 242 BPM P-R Int : 000 ms QRS Dur : 174 ms QT Int : 574 ms P-R-T Axes : 109 -69 132 degrees QTc Int : 467 ms Atrial flutter Right bundle branch block Left anterior fascicular block Bifascicular block Left ventricular hypertrophy with repolarization abnormality Abnormal ECG Confirmed by EULOGIO SCHREIBER DO ([id number]), supervising editor news reel STACY MORAN ([id number]) on 07/01/2020 2:20:41 PM Referred By: Confirmed By:EULOGIO SCHREIBER DO
--- NOTE | 2020-07-01 14:21 | EKG ---
Test Reason : Blood Pressure : / mmHG Vent. Rate : 062 BPM Atrial Rate : 062 BPM P-R Int : 150 ms QRS Dur : 170 ms QT Int : 490 ms P-R-T Axes : 082 -74 091 degrees QTc Int : 497 ms Sinus rhythm with frequent Premature ventricular complexes Right bundle branch block Left anterior fascicular block Bifascicular block Minimal voltage criteria for LVH, may be normal variant T wave abnormality, consider lateral ischemia Abnormal ECG Confirmed by EULOGIO SCHREIBER DO ([id number]), brands editor STACY MORAN ([id number]) on 07/01/2020 2:20:38 PM Referred By: Confirmed By:EULOGIO SCHREIBER DO
[2020-07-01] MEDS: Lorazepam 2 MG/ML VIAL SLOW IVP PRN (14:26)
[2020-07-01] MEDS: diphenhydrAMINE 50 MG/ML VIAL IVP PRN (20:59)
[2020-07-01] MEDS: Atorvastatin Calcium 40 MG TAB PO SCH (21:03)
[2020-07-02] MEDS: Metoprolol Tartrate 5 MG/5 ML VIAL IVP SCH ×4 (00:01→19:54)
[2020-07-02] MEDS: diphenhydrAMINE 50 MG/ML VIAL IVP PRN (02:21)
[2020-07-02] MEDS: Cephalexin 250 MG CAP PO SCH ×5 (02:26→19:36)
[2020-07-02] MEDS: Lorazepam 2 MG/ML VIAL SLOW IVP PRN (03:18)
[2020-07-02] MEDS: hydrALAZINE 20 MG/ML VIAL SLOW IVP PRN ×2 (04:14→15:01)
[2020-07-02 04:23] LABS: #Eosinphils 0.1 thou/uL (0.0-0.7); #Lymphocytes 0.9 thou/uL (1.20-3.40); #Neutrophils 6.3 thou/uL (1.40-6.50); %Basophils 0.3 % (0.0-1.0); %Eosinophils 1.3 % (0.0-10.0); %Lymphocytes 10.7 % (21.0-51.0); %Monocytes 11.8 % (0.0-10.0); %Neutrophils 75.9 % (42.0-75.0); Hemoglobin 9.2 g/dL (14.0-18.0); Mean Corpuscular Hemoglobin 28.4 pg (27.0-31.0); Mean Corpuscular Volume 85.8 fL (78.0-98.0); Mean Platelet Volume 10.8 fL (7.4-10.4); Platelet Count 86 thou/uL (130-400); RBC Distribution Width 13.9 % (11.5-14.5); Red Blood Cell (RBC) Count 3.22 mill/uL (4.70-6.10); White Blood Cell (WBC) Count 8.3 thou/uL (4.8-10.8)
[2020-07-02 04:33] LABS: Anion Gap 16 mmol/L (10-20); BUN (Urea Nitrogen) 42 mg/dL (8.4-25.7); Calc. Creatinine Clearance 67 mL/min (70-130); Calcium 7.8 mg/dL (7.8-10.44); Carbon Dioxide 18 mmol/L (23-31); Chloride 116 mmol/L (98-107); Glucose 96 mg/dL (83-110); Potassium 3.4 mmol/L (3.5-5.1); Sodium 147 mmol/L (136-145)
--- NOTE | 2020-07-02 06:52 | PDOC.FM ---
- Subjective Subjective: Pt still very restless, but confused/disoriented renal function improving to 55-80 ml/hr output. plannign transfer out of unit if encephalopathy improves enough to be off restraints. - Objective Vital Signs & Weight: Vital Signs (12 hours) Temp Pulse BP Pulse Ox 07/02/20 04:14 60 181/83 H 07/02/20 04:00 98.8 F 07/02/20 02:28 98 07/02/20 00:00 99.7 F H 07/01/20 22:31 96 07/01/20 20:00 98.8 F 07/01/20 19:39 99 07/01/20 19:05 98 Weight Admit Weight 108.862 kg Weight 109.6 kg Most Recent Monitor Data Heart Rate from ECG 60 NIBP 174/77 NIBP BP-Mean 109 Respiration from ECG 24 SpO2 97 I&O: 06/30/20 07/01/20 07/02/20 06:59 06:59 06:59 Intake Total 2003 2887 1014 Output Total 1320 1954 194 Balance 684 932 -931 Result Diagrams: 07/02/20 03:50 07/02/20 03:50 Phys Exam - Physical Examination alert, oriented only ot person HEENT: sclera anicteric dry MM Neck: supple coarse diffuse rhonchi with expiratory wheezing. Cardiovascular: RRR, no significant murmur Gastrointestinal: soft, no distention, positive bowel sounds Musculoskeletal: no edema, pulses present Neurological: moves all 4 limbs Deviation from normal: agitated affect Skin: normal turgor, cap refill <2 seconds Dx/Plan (1) Cardiogenic shock Code(s): R57.0 - CARDIOGENIC SHOCK Status: Resolved (2) Atrial flutter Code(s): I48.92 - UNSPECIFIED ATRIAL FLUTTER Status: Acute (3) Hypokalemia Code(s): E87.6 - HYPOKALEMIA Status: Acute (4) Normocytic anemia Code(s): D64.9 - ANEMIA, UNSPECIFIED Status: Acute (5) IDDM (insulin dependent diabetes mellitus) Code(s): MJK9147 - Status: Acute (6) HTN (hypertension) Code(s): I10 - ESSENTIAL (PRIMARY) HYPERTENSION Status: Acute (7) HLD (hyperlipidemia) Code(s): E78.5 - HYPERLIPIDEMIA, UNSPECIFIED Status: Acute - Plan Plan: 75 y/o male ROSC achieved in field by EMT after cardiac arrest with cardiogenic shock. 1. Cardiogenic shock with arrest in field with ROSC. Continued encephalopathy, likely metabolic. - Chest compressions and intubation initiated in the field. V. fib rhythm strip per EMS upon arrival to the ED. - EKG: atrial flutter with rate of 40 - Cardiology Dr. Gaines consulted form ER by Dr. Feliz. Recommending no Cath at admission. However overnight the pt became symptomatic without a reading BP and HR in the 20's. Central line was placed, percutaneous pacing initiated and dopamine and dobutamine started. Pt was taken for a temporary pacer by Dr. Gaines. Strated on heparin ggt on 06/28 for a flutter and in case coronary occlusion. Off pressor support 06/29. Extubated on 06/29. Cardiology plans to proceed with angiography today, with pacer placement vs open heart surgery pending results of angiography. Heparin ggt d/c's and changed to ppx dose due to low plt count. will jonas with plt <85k. - Echo: EF 50-55%, mild LVH, mild TR, MR. Mod AR. - In setting of possible anoxic brain injury pt received 32-34 Celsius for several hours, which was discontinued as might have been further contributing to bradycardia. Pt is awake and tolerated extubation on 06/29. - IV protonix daily - engine repairer service consulted for dietary needs 06/28. Will get speech consult and determine swallow safety, now that extubated. Not cleared for diet on 06/29 or . will continue re-eval daily. - Mental status oriented to person only with agitation and inability to be left alone without soft restraints as he pulls out all lines. 2. Suspected cardiac arrhythmia as cause of sudden cardiogenic arrest - Ordered TSH, Mag, Phos, electrolytes and UDS al nml. - Echo and cards consult. see above for documented details. - Dr. Madera placed AICD and pacer on 06/30. Pt tolerated procedure well and RRR. 3. Atrial flutter with bradycardia, resolved - EKG showed a flutter wtih rate of 40's - perfusing well with elevated BP and 2+ pulses radial, and dorsalis pedis upon admission, but developed symptoms of hypotension and HR 20's 06/27 overnight. see note from night team. taken for temporary pacer 06/27. Angiography by Dr. Gaines, on 06/30 showed no significant occlusion and permanent pacer and AICD placed by Dr. Madera. - Pt in NSR rate 60 - 70's - Heparin ggt d/c'd now NSR. - Cards consulted, appreciate recs: hold REID-I until renal function improved, start low dose B-loyda once tolerating PO 4. Elevated Troponins. - likely secondary to CPR/defibrillation, differnetial does include ischemia, arrhythmia. Refer to Cardiology note for type. Dr. Gianes does not presume this to be occlusive process as the amount of rise in trop does not represent occlusion, but rather post CPR/defibrillation. - Trops: 0.075 > 0.296 > 0.952 - Dr. Gaines consulted for cards. - heparin drip d/c'd and at ppx dose. hold if plt <85k. 5. Acute hypoxic resp failure - resolved - requiring intubation - Pulm consulted for vent management in ICU - dark sputum suctioned and fevers on admission. cultured sputum and started vanc plus rocephin. Rocephin only on 06/30. blood and urine ccx as well. Pending results - extubated and tolerating RA. 6. ELÍAS, possible underlying CKD. improving - most likely secondary to cargiogenic shock and hypoperfusion temporarily. - will monitor and treat the cause. - IVF hydration increased from 50 ml/hr to 100 ml/hr due to decreased urine output ~30 ml/hr. Also gave 500 ml NS bolus LR this mroning before CATH and contrast. 06/30 IVF's switched to 100 ml/hr 1/2 NS due to slight hypernatremia. IVF 07/02: 75 ml/hr 1/2 NS. Sodium remains 147, will trend. will continue to monitor closely. - urine output increasing and ELÍAS improving day by day 7. Hx of DM - insure of regimen, will seek records - A1C 6.4% - SSI mild - AC/HS accuchecks 8. Hx of HTN - will start some PRN IV hydralazine for sys>180 9. Hypokalemia, improved - will replace IV as PRN 10. Normocytic anemia - will further work up once stable - anemia labs ordered 07/02 10. Thrombocytopenia - was on heparin ggt, likely 2/2 medications. heparin ggt d/c'd and changed to ppx dose. hold if plt <85k. - plt on 07/01: 82k, 07/02: 86k PCP: Marian Saravia [facility] Code status: full code per NOK, brother Ad Lobato DVT ppx: heparin ppx, hold if plt <85k GI ppx: protonix IV due to cardiogenic shock and CCU pt. will transition to PO once tolerating diet. Dispo: admit to CCU, inpt. >48 hr anticipated. Addendum - Attending - Attending Attestation Date/Time: 07/02/20 1026 I personally evaluated the patient and discussed the management with Dr. Pruitt. I agree with the History, Examination, Assessment and Plan documented above with any addition or exceptions noted below. Patient still encephalopathic this morning. If a sitter can be arranged, he can transfer to the floor. Not currently cleared to swallow due to mental status.
--- NOTE | 2020-07-02 08:01 | RAD ---
XR Chest 1 View Portable History: Ventilated patient Comparison: Radiograph prior day Findings: Heart size is enlarged. Trace effusions. Mild pulmonary edema. No pneumothorax. AICD/pacer is similar. Impression: Similar examination of the chest without improved lung aeration.
[2020-07-02] MEDS: cefTRIAXone\\ROCEPHIN 1 GM in Sodium Chloride 0.9% 100 ML IVPB SCH (09:02)
[2020-07-02] MEDS ORDERED: Furosemide 20 MG/2 ML VIAL SLOW IVP SCH (09:15)
--- NOTE | 2020-07-02 09:29 | PRG ---
DATE OF SERVICE: 07/02/2020 SUBJECTIVE: Mr. Lobato is confused and disoriented as before. OBJECTIVE: VITAL SIGNS: His heart rate is 68, it is sinus. Blood pressure 135/67. LUNGS: He has some expiratory wheezing. CARDIAC: Normal S1 and normal S2. ABDOMEN: Soft and nontender. EXTREMITIES: There is no edema. LABORATORY DATA: Chest x-ray shows pulmonary vascular congestion. ASSESSMENT: 1. Congestive heart failure, appears to be diastolic. 2. Mild wheezing probably related to heart failure. 3. Previous cardiac arrest with subsequent defibrillator implantation. PLAN: 1. We will give him intravenous diuretic. 2. Unable to swallow, may need to put an NG tube. If he can swallow, we will give him oral medicines. 3. We will reduce beta loyda. Job ID: [id number]
[2020-07-02 10:04] LABS: Iron 32 ug/dL (65-175); Iron Binding Capacity, Total 236 mcg/dL (261-462)
[2020-07-02] MEDS ORDERED: Potassium Chloride 40 MEQ in Sodium Chloride 0.9% 250 ML 250 ML IVPB SCH (12:45)
--- NOTE | 2020-07-02 12:51 | PRG ---
DATE OF SERVICE: 07/02/2020 SUBJECTIVE: The patient remains encephalopathic. No acute changes. PHYSICAL EXAMINATION: VITAL SIGNS: Temperature 97.8, pulse 65, blood pressure 173/83, O2 saturation 96%. HEENT: Unremarkable. NECK: No JVD. LUNGS: Coarse breath sounds. CARDIAC: S1 and S2, regular. ABDOMEN: Soft. EXTREMITIES: Edematous. IMAGING STUDIES: Chest x-ray shows some hilar edema. LABORATORY DATA: White blood cell count 8.3, hematocrit 27.7, and platelet count 86. Sodium 147, potassium 3.4, chloride 116, CO2 of 18, BUN 42, creatinine 1.5, and glucose 96. ASSESSMENT: 1. Status post cardiopulmonary arrest. 2. Encephalopathy. 3. Status post pacemaker placement. PLAN: If the patient goes to the floor, he would need a sitter. I think with time, he will start to clear, but he is nowhere near his baseline at current. Job ID: [id number]
[2020-07-02] MEDS: Sodium Chloride 0.45% 1,000 ML IV SCH (14:52)
[2020-07-02] MEDS ORDERED: Sterile Water 10 ML VIAL FS PRN (19:30)
[2020-07-02] MEDS: Atorvastatin Calcium 40 MG TAB PO SCH (19:35)
[2020-07-02] MEDS: Ziprasidone 20 MG VIAL IM PRN (19:43)
[2020-07-03] MEDS: Cephalexin 250 MG CAP PO SCH ×4 (01:09→23:46)
[2020-07-03] MEDS: Lorazepam 2 MG/ML VIAL SLOW IVP PRN (01:10)
[2020-07-03] MEDS: Sodium Chloride 0.45% 1,000 ML IV SCH (01:21)
[2020-07-03] MEDS: Ziprasidone 20 MG VIAL IM PRN (02:32)
[2020-07-03 04:41] LABS: #Eosinphils 0.2 thou/uL (0.0-0.7); #Lymphocytes 0.7 thou/uL (1.20-3.40); #Neutrophils 6.5 thou/uL (1.40-6.50); %Basophils 0.2 % (0.0-1.0); %Eosinophils 1.9 % (0.0-10.0); %Lymphocytes 8.3 % (21.0-51.0); %Monocytes 12.2 % (0.0-10.0); %Neutrophils 77.4 % (42.0-75.0); Hemoglobin 9.3 g/dL (14.0-18.0); Mean Corpuscular HGB CONC 33.5 g/dL (32.0-36.0); Mean Corpuscular Hemoglobin 28.6 pg (27.0-31.0); Mean Corpuscular Volume 85.4 fL (78.0-98.0); Mean Platelet Volume 10.2 fL (7.4-10.4); Platelet Count 81 thou/uL (130-400); RBC Distribution Width 13.7 % (11.5-14.5); Red Blood Cell (RBC) Count 3.26 mill/uL (4.70-6.10); White Blood Cell (WBC) Count 8.4 thou/uL (4.8-10.8)
[2020-07-03 04:55] LABS: Anion Gap 15 mmol/L (10-20); BUN (Urea Nitrogen) 37 mg/dL (8.4-25.7); Calc. Creatinine Clearance 74 mL/min (70-130); Calcium 7.9 mg/dL (7.8-10.44); Carbon Dioxide 18 mmol/L (23-31); Chloride 119 mmol/L (98-107); Glucose 118 mg/dL (83-110); Potassium 3.3 mmol/L (3.5-5.1); Sodium 149 mmol/L (136-145)
[2020-07-03] MEDS: Metoprolol Tartrate 5 MG/5 ML VIAL IVP SCH (06:01)
[2020-07-03] MEDS ORDERED: Potassium Chloride 20 MEQ TAB PO SCH (07:15)
--- NOTE | 2020-07-03 07:43 | PDOC.FM ---
- Subjective Subjective: Transferred to floor with sitter at bedside Pt asleep, but arousable. Confused and very somnolent. no acute overnight evetns. Tele monitoring: paced 60-70's overnight. - Objective MAR Reviewed: Yes Vital Signs & Weight: Vital Signs (12 hours) Temp Pulse Resp BP Pulse Ox 07/03/20 04:00 98.0 F 61 20 123/81 07/02/20 20:00 97.2 F L 64 18 188/87 H 97 Weight Admit Weight 108.862 kg Weight 111.6 kg Most Recent Monitor Data Heart Rate from ECG 75 NIBP 172/84 NIBP BP-Mean 113 Respiration from ECG 25 SpO2 96 I&O: 07/02/20 07/03/20 07/04/20 06:59 06:59 06:59 Intake Total 1014 1107 Output Total 1945 2275 Balance -931 -1168 Result Diagrams: 07/03/20 03:52 07/03/20 03:52 Phys Exam - Physical Examination awakens but somnolent. Oriented to person only. HEENT: moist MMs, sclera anicteric Neck: supple diffuse rhonichi wiht expiratory wheezing. Cardiovascular: RRR, no significant murmur paced rate 60-70's Gastrointestinal: soft, no distention, positive bowel sounds Musculoskeletal: no edema, pulses present Neurological: moves all 4 limbs somnolent but arousable with then immediate somnolence. Deviation from normal: oriented only to person Dx/Plan (1) Cardiogenic shock Code(s): R57.0 - CARDIOGENIC SHOCK Status: Resolved (2) Atrial flutter Code(s): I48.92 - UNSPECIFIED ATRIAL FLUTTER Status: Acute (3) Hypokalemia Code(s): E87.6 - HYPOKALEMIA Status: Acute (4) Normocytic anemia Code(s): D64.9 - ANEMIA, UNSPECIFIED Status: Acute (5) IDDM (insulin dependent diabetes mellitus) Code(s): [id number] - Status: Acute (6) HTN (hypertension) Code(s): I10 - ESSENTIAL (PRIMARY) HYPERTENSION Status: Acute (7) HLD (hyperlipidemia) Code(s): E78.5 - HYPERLIPIDEMIA, UNSPECIFIED Status: Acute - Plan Plan: 75 y/o male ROSC achieved in field by EMT after cardiac arrest with cardiogenic shock. 1. Cardiogenic shock with arrest in field with ROSC. Continued encephalopathy, likely metabolic. - Chest compressions and intubation initiated in the field. V. fib rhythm strip per EMS upon arrival to the ED. - EKG: atrial flutter with rate of 40 - Cardiology Dr. Gaines consulted form ER by Dr. Feliz. Recommending no Cath at admission. However overnight the pt became symptomatic without a reading BP and HR in the 20's. Central line was placed, percutaneous pacing initiated and dopamine and dobutamine started. Pt was taken for a temporary pacer by Dr. Gaines. Strated on heparin ggt on 06/28 for a flutter and in case coronary occlusion. Off pressor support 06/29. Extubated on 06/29. Cardiology plans to proceed with angiography today, with pacer placement vs open heart surgery pending results of angiography. Heparin ggt d/c's and changed to ppx dose due to low plt count. will jonas with plt <85k. Tranferred to tele on 07/02 with sitter. - Echo: EF 50-55%, mild LVH, mild TR, MR. Mod AR. - In setting of possible anoxic brain injury pt received 32-34 Celsius for several hours, which was discontinued as might have been further contributing to bradycardia. Pt is awake and tolerated extubation on 06/29. Remains somnolent with orientation to person only 07/03. - IV protonix daily - principal archaeologist consulted for dietary needs 06/28. Will get speech consult and determine swallow safety, now that extubated. Not cleared for diet on 06/29, , or . will continue re-eval daily. Pt pulls at lines and not a good candidate for NG tube feeds as he removes lines. - Mental status oriented to person only with agitation and inability to be left alone, requires sitter. 2. Suspected cardiac arrhythmia as cause of sudden cardiogenic arrest - Ordered TSH, Mag, Phos, electrolytes and UDS al nml. - Echo and cards consult. see above for documented details. - Dr. Madera placed AICD and pacer on 06/30. Pt tolerated procedure well and RRR. 3. Atrial flutter with bradycardia, resolved - EKG showed a flutter wtih rate of 40's - perfusing well with elevated BP and 2+ pulses radial, and dorsalis pedis upon admission, but developed symptoms of hypotension and HR 20's 06/27 overnight. see note from night team. taken for temporary pacer 06/27. Angiography by Dr. Gaines, on 06/30 showed no significant occlusion and permanent pacer and AICD placed by Dr. Madera. - Pt in NSR rate 60 - 70's - Heparin ggt d/c'd now NSR. - Cards consulted, appreciate recs: hold REID-I until renal function improved, start low dose B-loyda once tolerating PO 4. Elevated Troponins. - likely secondary to CPR/defibrillation, differnetial does include ischemia, arrhythmia. Refer to Cardiology note for type. Dr. Gaines does not presume this to be occlusive process as the amount of rise in trop does not represent occlusion, but rather post CPR/defibrillation. - Trops: 0.075 > 0.296 > 0.952 - Dr. Gaines consulted for cards. - heparin drip d/c'd and at ppx dose. hold if plt <85k. 5. Acute hypoxic resp failure - resolved - requiring intubation - Pulm consulted for vent management in ICU - dark sputum suctioned and fevers on admission. cultured sputum and started vanc plus rocephin. Rocephin only on 06/30. blood and urine ccx as well. Pending results - extubated and tolerating RA. 6. ELÍAS, possible underlying CKD. improving - most likely secondary to cargiogenic shock and hypoperfusion temporarily. - will monitor and treat the cause. - IVF hydration increased from 50 ml/hr to 100 ml/hr due to decreased urine output ~30 ml/hr. Also gave 500 ml NS bolus LR this mroning before CATH and contrast. 06/30 IVF's switched to 100 ml/hr 1/2 NS due to slight hypernatremia. IVF 07/02: 75 ml/hr 1/2 NS. Sodium remains 147, will trend. Sodium 149 , Switched IVF's to D5W 75/hr 07/03. will continue to monitor closely. - urine output increasing and ELÍAS improving day by day 7. Hx of DM - insure of regimen, will seek records - A1C 6.4% - SSI mild - AC/HS accuchecks 8. Hx of HTN - will start some PRN IV hydralazine for sys>180 9. Hypokalemia, improved - will replace IV as PRN 10. Normocytic anemia - will further work up once stable - anemia labs ordered 07/02: iron low @ 32, iron %sat low @ 14, TIBC low at 236, b12 1861 high, folate nml @ 13. - most likely combo of chronic disease and iron deficiency with th elow iron % sat. - will start PO iron once tolerating PO. 11. Thrombocytopenia - was on heparin ggt, likely 2/2 medications. heparin ggt d/c'd and changed to ppx dose. hold if plt <85k. - plt on 07/01: 82k, 07/02: 86k 12. Hypernatremia - changed IVF to D5W on 07/03, 75 ml/hr PCP: Marian Saravia [facility] Code status: full code per NOK, brother Ad Lobato DVT ppx: heparin ppx, hold if plt <85k GI ppx: protonix IV due to cardiogenic shock and CCU pt. will transition to PO once tolerating diet. Dispo: admitted to tele, inpt. >48 hr anticipated. Addendum - Attending - Attending Attestation Date/Time: 07/03/20 1330 I personally evaluated the patient and discussed the management with Dr. Pruitt I agree with the History, Examination, Assessment and Plan documented above with any addition or exceptions noted below - Patient denies complaints. More alert today and following commands. Afebrile VSS. A/P: 1) Cardiac arrest s/p ROSC with placement of AICD/pacer- stable; continue current meds. 2) Nutrition- passed swallow study today and diet advanced, 3) Deconditioning- PT/OT/ST ordered; will work on possible rehab versus SNF placement. 4) Continue current meds.
[2020-07-03] MEDS ORDERED: Potassium Chloride 40 MEQ in Sodium Chloride 0.9% 250 ML 250 ML IVPB SCH (08:00)
[2020-07-03] MEDS: cefTRIAXone\\ROCEPHIN 1 GM in Sodium Chloride 0.9% 100 ML IVPB SCH (08:50)
[2020-07-03] MEDS: Dextrose 5% in Water 1,000 ML IV SCH ×2 (09:55→23:47)
[2020-07-03] MEDS: hydrALAZINE 20 MG/ML VIAL SLOW IVP PRN ×2 (10:11→16:53)
--- NOTE | 2020-07-03 11:21 | PRG ---
DATE OF SERVICE: SUBJECTIVE: Ad Lobato is transferred to the monitored bed. OBJECTIVE: VITAL SIGNS: Temperature 97, pulse , sats are 96% on room air, blood pressure is elevated to 130/80. CHEST: No wheezing. No crackles. CARDIAC: Normal . LABS: Pertinent for creatinine of 1.36. ASSESSMENT: 1. Respiratory failure. 2. Encephalopathy. 3. Status post prolonged CPR. PLAN: Pulmonary daniel, disposition as per Cardiology. Primary Critical Care is going to follow at a distance. Job ID: [id number]
[2020-07-03] MEDS ORDERED: Lisinopril 10 MG TAB PO SCH (13:15)
[2020-07-03] MEDS ORDERED: Furosemide 20 MG TAB PO SCH (13:15)
--- NOTE | 2020-07-03 13:21 | PRG ---
DATE OF SERVICE: 07/03/2020 SUBJECTIVE: Mr. Lobato is more alert today. He knows he is in [place]. He knows he is in some type of a hospital. That is an improvement from previously. A sitter is sitting with him. OBJECTIVE: VITAL SIGNS: Blood pressure is high at 179/82, pulse 74. LUNGS: Clear. CARDIAC: Normal S1, normal S2. ABDOMEN: Soft, nontender. EXTREMITIES: There is no edema. The patient still appears to be unable to take oral medicines, but I will check with the patient's nurse. ASSESSMENT: 1. Status post cardiac arrest. 2. Successful defibrillator implantation. 3. Hypertension. 4. Diastolic heart failure has improved. He is breathing better today. His lungs are now clear. PLAN: I will need to check with the nurse to see whether he can take oral medicines. He is on intravenous metoprolol. Job ID: [id number]
[2020-07-03] MEDS ORDERED: Lisinopril 5 MG TAB PO SCH (13:30)
--- NOTE | 2020-07-03 14:34 | PDOC.EP ---
- Subjective Date: 07/03/20 Time: 08:00 Interval History: follow up post dual chamber ICD implant for complete AV block and VF arrest. Now on telemetry. Alert but not fully oriented. - Review of Systems Constitutional: denies: chills, fever, malaise, sweats, weakness, other Respiratory: denies: cough, dry, hemoptysis, pleuritic pain, shortness of breath, SOB with excertion, sputum, wheezing, other Cardiology: denies: chest pain, edema, heart racing, light headedness, paroxysmal noc. dyspnea, orthopnea, palpitations, passing out, pleuritic pain, pressure, swelling, other Gastrointestinal: denies: abdominal pain, constipation, diarrhea, hematochezia, melena, nausea, vomitting, other Musculoskeletal: denies: unstable gait, falls, neck pain, shoulder pain, arm pain, hand pain, leg pain, foot pain, other - Objective Allergies/Adverse Reactions: Allergies Allergy/AdvReac Type Severity Reaction Status Date / Time No Known Allergies Allergy Verified 06/27/20 17:52 Current Medications Acetaminophen (Acetaminophen 325 Mg Tab) 650 mg PO Q4H PRN PRN Reason: Headache/Fever/Mild Pain (1-3) Atorvastatin Calcium (Atorvastatin Calcium 40 Mg Tab) 40 mg PO HS [facility] Last Admin: 07/02/20 19:35 Dose: Not Given Documented by: Cephalexin (Cephalexin 250 Mg Cap) 500 mg PO Q6HR [facility] Stop: 07/08/20 06:01 Last Admin: 07/03/20 12:22 Dose: 500 mg Documented by: Dextrose/Water (Dextrose 50% Abboject 50 Ml Syringe) 25 gm SLOW IVP PRN PRN PRN Reason: Hypoglycemia Diphenhydramine HCl (Diphenhydramine 50 Mg/Ml Vial) 50 mg IVP Q4H PRN PRN Reason: Anxiety/Agitation Last Admin: 07/02/20 02:21 Dose: 50 mg Documented by: Furosemide (Furosemide 20 Mg Tab) 20 mg PO NOW [facility] Stop: 07/03/20 16:00 Last Admin: 07/03/20 13:33 Dose: 20 mg Documented by: Furosemide (Furosemide 20 Mg Tab) 20 mg PO DAILY [facility] Glucagon (Glucagon 1 Mg/Ml Vial) 1 mg IM PRN PRN PRN Reason: Hypoglycemia Hydralazine HCl (Hydralazine 20 Mg/Ml Vial) 10 mg SLOW IVP Q4H PRN PRN Reason: SBP Greater Than 180 Last Admin: 07/03/20 10:11 Dose: 10 mg Documented by: Hydroxyzine HCl (Hydroxyzine 25 Mg Tab) 25 mg PO QIDPRN PRN PRN Reason: Anxiety/Agitation Dextrose/Water (D5w) 1,000 mls @ 0 mls/hr IV .Q0M PRN PRN Reason: Hypoglycemia Dextrose/Water (D5w) 1,000 mls @ 75 mls/hr IV .[id number] [facility] Last Admin: 07/03/20 09:55 Dose: 1,000 mls Documented by: Insulin Human Lispro (Humalog 300 Units/3 Ml Vial) 0 units SC .MILD SLIDING SCALE PRN PRN Reason: Mild Correctional Scale Insulin Human Lispro (Humalog 300 Units/3 Ml Vial) 0 units SC .BEDTIME SLIDING SC PRN PRN Reason: Bedtime Correctional Scale Lisinopril (Lisinopril 5 Mg Tab) 5 mg PO BID [facility] Lisinopril (Lisinopril 5 Mg Tab) 5 mg PO NOW [facility] Stop: 07/03/20 16:00 Last Admin: 07/03/20 13:32 Dose: 5 mg Documented by: Lorazepam (Lorazepam 2 Mg/Ml Vial) 0.5 mg SLOW IVP Q6H PRN PRN Reason: Anxiety/Agitation Last Admin: 07/03/20 01:10 Dose: 0.5 mg Documented by: Metoprolol Succinate (Metoprolol Succinate Xl 25 Mg Tab) 25 mg PO DAILY [facility] Metoprolol Succinate (Metoprolol Succinate Xl 25 Mg Tab) 25 mg PO NOW [facility] Stop: 07/03/20 16:00 Last Admin: 07/03/20 13:32 Dose: 25 mg Documented by: Miscellaneous Medication (Electrolyte Replacement Protocol) 0 each FS ASDIR PRN; Protocol PRN Reason: ELECTROLYTE REPLACEMENT Pantoprazole Sodium (Pantoprazole 40 Mg Tab) 40 mg PO DAILY [facility] Last Admin: 07/03/20 08:50 Dose: Not Given Documented by: Senna/Docusate Sodium (Senokot S 8.6-50 Mg Tab) 2 tab PO BID PRN PRN Reason: Constipation Sodium Chloride (Flush - Normal Saline 10 Ml Syringe) 10 ml IVF Q12HR [facility] Last Admin: 07/03/20 08:51 Dose: 10 ml Documented by: Sodium Chloride (Flush - Normal Saline 10 Ml Syringe) 10 ml IVF PRN PRN PRN Reason: Saline Flush Sterile Water (Sterile Water 10 Ml Vial) 1.2 ml FS PRN PRN PRN Reason: RECONSTITUTION Last Admin: 07/02/20 19:43 Dose: 1.2 ml Documented by: Ziprasidone (Ziprasidone 20 Mg Vial) 10 mg IM Q2H PRN PRN Reason: Agitation Last Admin: 07/03/20 02:32 Dose: 10 mg Documented by: Vital Signs & Weight: Vital Signs Temp Pulse Resp BP Pulse Ox 07/03/20 11:35 98.7 F 74 17 179/82 H 96 07/03/20 10:11 67 07/03/20 08:00 97.8 F 67 19 208/93 H 95 07/03/20 04:00 98.0 F 61 20 123/81 Admit Weight 240 lb Weight 246 lb 0.574 oz I/O: I/O 07/02/20 07/03/20 07/04/20 06:59 06:59 06:59 Intake Total 1014 1107 Output Total 4343 4063 Balance -934 -2029 - Physical Exam General: appears well, no apparent distress, speech clear. negative: affect appropriate HEENT: mucus membranes moist, normocephaly, EOMI Neck: supple neck, midline trachea, no JVD/HJR, no lymphadenopathy Cardiology: regular rate and rhythm, no murmur, PMI nondisplaced Lungs: clear to auscultation, normal breath sounds, no wheeze, rales, rhonchi Neurology: cranial nerve 2-12 intact, grossly intact, no lateralizing findings Abdomen: unremarkable, active bowel sounds, no pulsations/bruits Skin: device site stable w/o swelling, left sided device. negative: bruising, drainage, hematoma - Labs Result Diagrams: 07/04/20 03:53 07/04/20 13:35 - EKG Interpretation EKG Method: Telemetry EKG shows: Sinus rhythm - Device Device: dual, defibrillator Device Result: [employer] - Assessment/Plan Assessment/Plan: 1. 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 VF arrest -normal LCH -normal LVEF 3. Parox Atrial flutter, possibly CTI dependent on 06/27/20 4. Anoxic encephalopathy 5. Hypoxic respiratory failure, resolved SR on tele, mostly with V pacing. Continue to monitor. ICD function is steady post implant with post op complications. anbx x7 days post implant. Watch for recurrent Atria flutter. consider ablation if recurrence is seen.
[2020-07-03] MEDS: Atorvastatin Calcium 40 MG TAB PO SCH (21:12)
[2020-07-04] MEDS ORDERED: guaiFENesin 100 MG/5 ML UDCUP PO SCH (02:00)
[2020-07-04 04:35] LABS: #Eosinphils 0.4 thou/uL (0.0-0.7); #Lymphocytes 1.2 thou/uL (1.20-3.40); #Monocytes 1.2 thou/uL (0.11-0.59); #Neutrophils 7.6 thou/uL (1.40-6.50); %Basophils 0.1 % (0.0-1.0); %Eosinophils 3.6 % (0.0-10.0); %Lymphocytes 11.6 % (21.0-51.0); %Monocytes 11.9 % (0.0-10.0); %Neutrophils 72.8 % (42.0-75.0); Hemoglobin 10.1 g/dL (14.0-18.0); Mean Corpuscular HGB CONC 33.5 g/dL (32.0-36.0); Mean Corpuscular Hemoglobin 28.5 pg (27.0-31.0); Mean Platelet Volume 10.5 fL (7.4-10.4); Platelet Count 87 thou/uL (130-400); RBC Distribution Width 14.2 % (11.5-14.5); Red Blood Cell (RBC) Count 3.53 mill/uL (4.70-6.10); White Blood Cell (WBC) Count 10.4 thou/uL (4.8-10.8)
[2020-07-04 04:50] LABS: Anion Gap 14 mmol/L (10-20); BUN (Urea Nitrogen) 31 mg/dL (8.4-25.7); Calc. Creatinine Clearance 75 mL/min (70-130); Calcium 7.9 mg/dL (7.8-10.44); Carbon Dioxide 20 mmol/L (23-31); Chloride 116 mmol/L (98-107); Glucose 171 mg/dL (83-110); Potassium 3.3 mmol/L (3.5-5.1); Sodium 147 mmol/L (136-145)
[2020-07-04] MEDS: Cephalexin 250 MG CAP PO SCH ×3 (06:00→17:31)
[2020-07-04] MEDS: GUAIFENESIN SF SOLN 200 MG/10 ML UDCUP PO SCH ×5 (06:01→21:19)
[2020-07-04] MEDS ORDERED: Potassium Chloride 20 MEQ TAB PO SCH (06:45)
--- NOTE | 2020-07-04 07:45 | PDOC.FM ---
- Subjective Subjective: No acute overnight events, stable paced HR awake and alert sitting up eating breakfast upon entry to room. PT still confused but much improvement from yesterday. tolerating PO meds. - Objective MAR Reviewed: Yes Vital Signs & Weight: Vital Signs (12 hours) Temp Pulse BP Pulse Ox 07/04/20 04:00 98.2 F 66 193/91 H 93 L 07/04/20 00:00 156/72 H 07/03/20 20:00 96 Weight Admit Weight 110.9 kg Weight 114 kg Most Recent Monitor Data Heart Rate from ECG 75 NIBP 172/84 NIBP BP-Mean 113 Respiration from ECG 25 SpO2 96 I&O: 07/03/20 07/04/20 07/05/20 06:59 06:59 06:59 Intake Total 1107 1440 Output Total 2275 1350 Balance -1168 90 Result Diagrams: 07/04/20 03:53 07/05/20 04:03 Phys Exam - Physical Examination Constitutional: NAD aert and awake, oriented to person and place, not time. States its 1995 HEENT: moist MMs Neck: no JVD, supple, full ROM Respiratory: no rales, no rhonchi, wheezing present coarse breath sounds Cardiovascular: RRR, no significant murmur, no rub paced Gastrointestinal: soft, non-tender, no distention, positive bowel sounds Musculoskeletal: no edema, pulses present Neurological: non-focal, moves all 4 limbs oriented to person and place. Deviation from normal: impulsive Skin: normal turgor, cap refill <2 seconds Dx/Plan (1) Cardiogenic shock Code(s): R57.0 - CARDIOGENIC SHOCK Status: Resolved (2) Atrial flutter Code(s): I48.92 - UNSPECIFIED ATRIAL FLUTTER Status: Acute (3) Hypokalemia Code(s): E87.6 - HYPOKALEMIA Status: Acute (4) Normocytic anemia Code(s): D64.9 - ANEMIA, UNSPECIFIED Status: Acute (5) IDDM (insulin dependent diabetes mellitus) Code(s): MNZ8430 - Status: Acute (6) HTN (hypertension) Code(s): I10 - ESSENTIAL (PRIMARY) HYPERTENSION Status: Acute (7) HLD (hyperlipidemia) Code(s): E78.5 - HYPERLIPIDEMIA, UNSPECIFIED Status: Acute - Plan Plan: 75 y/o male ROSC achieved in field by EMT after cardiac arrest with cardiogenic shock. 1. Cardiogenic shock with arrest in field with ROSC. Continued encephalopathy, likely metabolic. - Chest compressions and intubation initiated in the field. V. fib rhythm strip per EMS upon arrival to the ED. - EKG: atrial flutter with rate of 40 - Cardiology Dr. Gaines consulted form ER by Dr. Feliz. Recommending no Cath at admission. However overnight the pt became symptomatic without a reading BP and HR in the 20's. Central line was placed, percutaneous pacing initiated and dopamine and dobutamine started. Pt was taken for a temporary pacer by Dr. Gaines. Strated on heparin ggt on 06/28 for a flutter and in case coronary occlusion. Off pressor support 06/29. Extubated on 06/29. Cardiology plans to proceed with angiography today, with pacer placement vs open heart surgery pending results of angiography. Heparin ggt d/c's and changed to ppx dose due to low plt count. will jonas with plt <85k. Tranferred to tele on 07/02 with sitter. - Echo: EF 50-55%, mild LVH, mild TR, MR. Mod AR. - In setting of possible anoxic brain injury pt received 32-34 Celsius for several hours, which was discontinued as might have been further contributing to bradycardia. Pt is awake and tolerated extubation on 06/29. Remains somnolent with orientation to person only 07/03. 07/04 awake and alert, OX2. - IV protonix daily - button sewer consulted for dietary needs 06/28. Will get speech consult and determine swallow safety, now that extubated. Not cleared for diet on 06/29, , or . will continue re-eval daily. Pt pulls at lines and not a good candidate for NG tube feeds as he removes lines. - Mental status oriented to person only with agitation and inability to be left alone, requires sitter. Starting to have improved mental status, passed speech eval for a diet on 07/03. Tolerating PO well 2. Suspected cardiac arrhythmia as cause of sudden cardiogenic arrest. Complete AV block per Dr. Madera. - Ordered TSH, Mag, Phos, electrolytes and UDS al nml. - Echo and cards consult. see above for documented details. - Dr. Madera placed AICD and pacer on 06/30. Pt tolerated procedure well and RRR paced 3. Atrial flutter with bradycardia, resolved - EKG showed a flutter wtih rate of 40's - perfusing well with elevated BP and 2+ pulses radial, and dorsalis pedis upon admission, but developed symptoms of hypotension and HR 20's 06/27 overnight. see note from night team. taken for temporary pacer 06/27. Angiography by Dr. Gaines, on 06/30 showed no significant occlusion and permanent pacer and AICD placed by Dr. Madera. - Pt in NSR rate 60 - 70's - Heparin ggt d/c'd now NSR. - Cards consulted, appreciate recs: hold REID-I until renal function improved, start low dose B-loyda once tolerating PO 4. Elevated Troponins. - likely secondary to CPR/defibrillation, differnetial does include ischemia, arrhythmia. Refer to Cardiology note for type. Dr. Gaines does not presume this to be occlusive process as the amount of rise in trop does not represent occlusion, but rather post CPR/defibrillation. - Trops: 0.075 > 0.296 > 0.952 - Dr. Gaines consulted for cards. - heparin drip d/c'd and at ppx dose. hold if plt <85k. 5. Acute hypoxic resp failure - resolved - requiring intubation - Pulm consulted for vent management in ICU - dark sputum suctioned and fevers on admission. cultured sputum and started vanc plus rocephin. Rocephin only on 06/30. blood and urine ccx as well. Pending results - extubated and tolerating RA. 6. ELÍAS, possible underlying CKD. improving - most likely secondary to cargiogenic shock and hypoperfusion temporarily. - will monitor and treat the cause. - IVF hydration increased from 50 ml/hr to 100 ml/hr due to decreased urine output ~30 ml/hr. Also gave 500 ml NS bolus LR this mroning before CATH and contrast. 06/30 IVF's switched to 100 ml/hr 1/2 NS due to slight hypernatremia. IVF 07/02: 75 ml/hr 1/2 NS. Sodium remains 147, will trend. Sodium 149 , Switched IVF's to D5W 75/hr 07/03. will continue to monitor closely. - urine output increasing and ELÍAS improving day by day 7. Hx of DM - insure of regimen, will seek records - A1C 6.4% - SSI mild - AC/HS accuchecks 8. Hx of HTN - will start some PRN IV hydralazine for sys>180 9. Hypokalemia, improved - will replace IV as PRN 10. Normocytic anemia - will further work up once stable - anemia labs ordered 07/02: iron low @ 32, iron %sat low @ 14, TIBC low at 236, b12 1861 high, folate nml @ 13. - most likely combo of chronic disease and iron deficiency with th elow iron % sat. - will start PO iron once tolerating PO. 11. Thrombocytopenia - was on heparin ggt, likely 2/2 medications. heparin ggt d/c'd and changed to ppx dose. hold if plt <85k. - plt on 07/01: 82k, 07/02: 86k 12. Hypernatremia - changed IVF to D5W on 07/03, 75 ml/hr PCP: Marian Saravia [facility] Code status: full code per NOK, brother Ad Lobato DVT ppx: heparin ppx, hold if plt <85k GI ppx: PO protonix Dispo: admitted to tele, inpt. >48 hr anticipated. Inpt rehab vs snf discharge Addendum - Attending - Attending Attestation Date/Time: 07/05/20 [id number] I personally evaluated the patient and discussed the management with Dr. Pruitt on 07/04/2020 I agree with the History, Examination, Assessment and Plan documented above with any addition or exceptions noted below- Patient without complaints. still confused but redirectable and improving. Afebrile VSS. A/P: 1) s/p Cardiac arrest with ROSC - stable; s/p AICD/pacer placement. 2) HTN - started on BP meds; continue to titrate. 3) Deconditioning- continue PT/OT/ST. Rehab/SNF placement
[2020-07-04] MEDS ORDERED: Benzonatate 100 MG CAP PO SCH (09:00)
--- NOTE | 2020-07-04 09:03 | PRG ---
DATE OF SERVICE: 07/04/2020 SUBJECTIVE: Mr. Lobato seems to have intermittent episodes of confusion. Overall cardiovascular daniel, he has been stable. No current complaints. OBJECTIVE: VITAL SIGNS: Blood pressure 182/86, pulse 79, and temperature 98.5. LUNGS: Rhonchi and rales bilaterally. HEART: Regular rate and rhythm. ABDOMEN: Soft, nontender, and nondistended. EXTREMITIES: No edema. PERTINENT LABORATORY DATA: Hemoglobin 10.1 and hematocrit 30.0. Creatinine 1.37. IMPRESSION: 1. [id number]-[id number] arrest. 2. 2:1 block. 3. Dysphagia. RECOMMENDATIONS: Mr. Lobato CV status daniel is stable. His blood pressure is somewhat elevated. Antibiotics to be continued after recent ICD placement. He has had recent angio with no significant coronary artery disease. I would recommend therapy. will likely be important. Job ID: [id number]
[2020-07-04] MEDS: Furosemide 20 MG TAB PO SCH (09:13)
[2020-07-04] MEDS: Lisinopril 5 MG TAB PO SCH ×2 (09:13→21:19)
--- NOTE | 2020-07-04 09:48 | PDOC.EP ---
- Subjective Date: 07/04/20 Time: 09:47 Interval History: No new events. Stable paced rhythm. - Objective Allergies/Adverse Reactions: Allergies Allergy/AdvReac Type Severity Reaction Status Date / Time No Known Allergies Allergy Verified 06/27/20 17:52 Current Medications Acetaminophen (Acetaminophen 325 Mg Tab) 650 mg PO Q4H PRN PRN Reason: Headache/Fever/Mild Pain (1-3) Atorvastatin Calcium (Atorvastatin Calcium 40 Mg Tab) 40 mg PO HS [facility] Last Admin: 07/03/20 21:12 Dose: Not Given Documented by: Cephalexin (Cephalexin 250 Mg Cap) 500 mg PO Q6HR [facility] Stop: 07/08/20 06:01 Last Admin: 07/04/20 06:00 Dose: 500 mg Documented by: Dextrose/Water (Dextrose 50% Abboject 50 Ml Syringe) 25 gm SLOW IVP PRN PRN PRN Reason: Hypoglycemia Diphenhydramine HCl (Diphenhydramine 50 Mg/Ml Vial) 50 mg IVP Q4H PRN PRN Reason: Anxiety/Agitation Last Admin: 07/02/20 02:21 Dose: 50 mg Documented by: Furosemide (Furosemide 20 Mg Tab) 20 mg PO DAILY [facility] Last Admin: 07/04/20 09:13 Dose: 20 mg Documented by: Glucagon (Glucagon 1 Mg/Ml Vial) 1 mg IM PRN PRN PRN Reason: Hypoglycemia Guaifenesin (Diabetic Tussin 200 Mg/10 Ml Udcup) 100 mg PO Q4H [facility] Last Admin: 07/04/20 09:12 Dose: 100 mg Documented by: Hydralazine HCl (Hydralazine 20 Mg/Ml Vial) 10 mg SLOW IVP Q4H PRN PRN Reason: SBP Greater Than 180 Last Admin: 07/03/20 16:53 Dose: 10 mg Documented by: Hydroxyzine HCl (Hydroxyzine 25 Mg Tab) 25 mg PO QIDPRN PRN PRN Reason: Anxiety/Agitation Dextrose/Water (D5w) 1,000 mls @ 0 mls/hr IV .Q0M PRN PRN Reason: Hypoglycemia Dextrose/Water (D5w) 1,000 mls @ 75 mls/hr IV .[id number] [facility] Last Admin: 07/03/20 23:47 Dose: 1,000 mls Documented by: Insulin Human Lispro (Humalog 300 Units/3 Ml Vial) 0 units SC .MILD SLIDING SCALE PRN PRN Reason: Mild Correctional Scale Insulin Human Lispro (Humalog 300 Units/3 Ml Vial) 0 units SC .BEDTIME SLIDING SC PRN PRN Reason: Bedtime Correctional Scale Lisinopril (Lisinopril 5 Mg Tab) 5 mg PO BID [facility] Last Admin: 07/04/20 09:13 Dose: 5 mg Documented by: Metoprolol Succinate (Metoprolol Succinate Xl 25 Mg Tab) 25 mg PO DAILY [facility] Last Admin: 07/04/20 09:13 Dose: 25 mg Documented by: Miscellaneous Medication (Electrolyte Replacement Protocol) 0 each FS ASDIR PRN; Protocol PRN Reason: ELECTROLYTE REPLACEMENT Pantoprazole Sodium (Pantoprazole 40 Mg Tab) 40 mg PO DAILY [facility] Last Admin: 07/04/20 09:13 Dose: 40 mg Documented by: Potassium Chloride (Potassium Chloride 20 Meq Tab) 40 meq PO NOW [facility] Stop: 07/04/20 10:00 Last Admin: 07/04/20 09:12 Dose: 40 meq Documented by: Senna/Docusate Sodium (Senokot S 8.6-50 Mg Tab) 2 tab PO BID PRN PRN Reason: Constipation Sodium Chloride (Flush - Normal Saline 10 Ml Syringe) 10 ml IVF Q12HR [facility] Last Admin: 07/04/20 09:13 Dose: 10 ml Documented by: Sodium Chloride (Flush - Normal Saline 10 Ml Syringe) 10 ml IVF PRN PRN PRN Reason: Saline Flush Sterile Water (Sterile Water 10 Ml Vial) 1.2 ml FS PRN PRN PRN Reason: RECONSTITUTION Last Admin: 07/02/20 19:43 Dose: 1.2 ml Documented by: Ziprasidone (Ziprasidone 20 Mg Vial) 10 mg IM Q2H PRN PRN Reason: Agitation Last Admin: 07/03/20 02:32 Dose: 10 mg Documented by: Vital Signs & Weight: Vital Signs Temp Pulse Resp BP Pulse Ox 07/04/20 08:00 98.5 F 79 18 182/86 H 94 L 07/04/20 07:49 93 L 07/04/20 04:00 98.2 F 66 193/91 H 93 L 07/04/20 00:00 156/72 H Admit Weight 244 lb 7.882 oz Weight 251 lb 5.231 oz I/O: I/O 07/03/20 07/04/20 07/05/20 06:59 06:59 06:59 Intake Total 1107 1440 Output Total 2275 1350 Balance -1168 90 - Physical Exam General: alert & oriented x3, appears well HEENT: normocephaly Neck: no JVD/HJR Cardiology: no murmur Lungs: normal breath sounds Neurology: grossly intact Abdomen: unremarkable, soft, non-tender Extremities: warm Skin: device site stable w/o swelling Musculoskeletal: no pain - Labs Result Diagrams: 07/04/20 03:53 07/04/20 03:52 - EKG Interpretation EKG Method: Telemetry EKG shows: Sinus rhythm (V paced) - Device Device: dual, pacemaker, defibrillator Device Result: [employer] - Assessment/Plan Assessment/Plan: 1. 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 VF arrest -normal LCH -normal LVEF 3. Parox Atrial flutter, possibly CTI dependent on 06/27/20. No recurrence since. 4. Anoxic encephalopathy 5. Hypoxic respiratory failure, resolved SR on tele, mostly with V pacing. Continue to monitor. ICD function is steady post implant with post op complications. anbx x7 days post implant. Watch for recurrent Atria flutter. consider ablation if recurrence is seen. 07/04/19. Continued to be stable. In rehab. More oriented. No device site issues. Would sign off. 2 week wound check is planned in [facility] office.
--- NOTE | 2020-07-04 11:25 | PDOC.PALPN ---
Palliative Progress Note - Objective Vital Signs: Vital Signs - Most Recent Temp Pulse Resp BP Pulse Ox 98.5 F 72 18 169/97 H 94 L 07/04/20 08:00 07/04/20 09:31 07/04/20 08:00 07/04/20 09:31 07/04/20 08:40 - Plan Plan: Patient remains confused. Alert and oriented, however unable to perform teach back in relation to current health condition. Caregiver Kori at bedside. Secondary to patient lacking capacity at this time to make complex decisions we will not complete MPOA or directives with him. We will continue to suggest his brother to remain surrogate decision maker as per [place] [employer]. Palliative Care will sign off. Thank you for this very appropriate consult. [25] minutes spent on this encounter with >50% of the time in counseling and coordination of care.
[2020-07-04] MEDS: hydrALAZINE 20 MG/ML VIAL SLOW IVP PRN (12:11)
[2020-07-04] MEDS: Dextrose 5% in Water 1,000 ML IV SCH (12:11)
[2020-07-04] MEDS: HumaLOG 300 UNITS/3 ML VIAL SC PRN ×2 (12:12→17:32)
[2020-07-04 14:11] LABS: Anion Gap 12 mmol/L (10-20); BUN (Urea Nitrogen) 29 mg/dL (8.4-25.7); Calc. Creatinine Clearance 79 mL/min (70-130); Calcium 7.8 mg/dL (7.8-10.44); Carbon Dioxide 19 mmol/L (23-31); Chloride 116 mmol/L (98-107); Glucose 185 mg/dL (83-110); Potassium 3.3 mmol/L (3.5-5.1); Sodium 144 mmol/L (136-145)
[2020-07-04] MEDS: Atorvastatin Calcium 40 MG TAB PO SCH (21:19)
[2020-07-05] MEDS: Cephalexin 250 MG CAP PO SCH ×5 (00:21→23:31)
[2020-07-05] MEDS: GUAIFENESIN SF SOLN 200 MG/10 ML UDCUP PO SCH ×7 (00:21→23:30)
[2020-07-05] MEDS: Dextrose 5% in Water 1,000 ML IV SCH (04:39)
[2020-07-05 05:41] LABS: Anion Gap 12 mmol/L (10-20); BUN (Urea Nitrogen) 26 mg/dL (8.4-25.7); Calc. Creatinine Clearance 87 mL/min (70-130); Calcium 7.5 mg/dL (7.8-10.44); Carbon Dioxide 20 mmol/L (23-31); Chloride 115 mmol/L (98-107); Glucose 160 mg/dL (83-110); Potassium 3.2 mmol/L (3.5-5.1); Sodium 144 mmol/L (136-145)
[2020-07-05] MEDS: HumaLOG 300 UNITS/3 ML VIAL SC PRN (05:57)
[2020-07-05] MEDS ORDERED: Potassium Chloride 20 MEQ TAB PO SCH (07:00)
[2020-07-05] MEDS: Lisinopril 5 MG TAB PO SCH (07:16)
[2020-07-05] MEDS: Furosemide 20 MG TAB PO SCH (07:17)
--- NOTE | 2020-07-05 07:31 | PDOC.FM ---
- Subjective Subjective: Elevated BP's, will titrate BP medications tolerating diet well, d/c'd IVF wanting to urinate with urinal, will take out duvall cath this am. no acute overnight events Cardiology cleared for d/c from their perspective. K-jose angel ordered this AM for K replacement. Pending [facility] rehab approval for d/c. - Objective MAR Reviewed: Yes Vital Signs & Weight: Vital Signs (12 hours) Temp Pulse Resp BP Pulse Ox 07/05/20 07:16 66 07/05/20 07:13 97.6 F 66 18 164/77 H 96 07/05/20 04:00 98.6 F 66 20 145/69 H 93 L 07/05/20 00:20 67 162/71 H 07/04/20 21:19 61 07/04/20 19:55 98.9 F 61 18 166/80 H 96 Weight Admit Weight 110.9 kg Weight 117.2 kg Most Recent Monitor Data Heart Rate from ECG 75 NIBP 172/84 NIBP BP-Mean 113 Respiration from ECG 25 SpO2 96 I&O: 07/04/20 07/05/20 07/06/20 06:59 06:59 06:59 Intake Total 1440 120 Output Total 1350 550 Balance 90 -430 Result Diagrams: 07/04/20 03:53 07/05/20 04:03 Phys Exam - Physical Examination Constitutional: NAD awake and alert, O to person, and place HEENT: moist MMs, sclera anicteric Neck: no JVD, supple, full ROM Respiratory: wheezing present Cardiovascular: RRR, no significant murmur, no rub paced Gastrointestinal: soft, non-tender, no distention, positive bowel sounds Musculoskeletal: no edema, pulses present Neurological: non-focal, normal sensation, moves all 4 limbs Psychiatric: normal affect Skin: normal turgor, cap refill <2 seconds Dx/Plan (1) Cardiogenic shock Code(s): R57.0 - CARDIOGENIC SHOCK Status: Resolved (2) Atrial flutter Code(s): I48.92 - UNSPECIFIED ATRIAL FLUTTER Status: Acute (3) Hypokalemia Code(s): E87.6 - HYPOKALEMIA Status: Acute (4) Normocytic anemia Code(s): D64.9 - ANEMIA, UNSPECIFIED Status: Acute (5) IDDM (insulin dependent diabetes mellitus) Code(s): [id number] - Status: Acute (6) HTN (hypertension) Code(s): I10 - ESSENTIAL (PRIMARY) HYPERTENSION Status: Acute (7) HLD (hyperlipidemia) Code(s): E78.5 - HYPERLIPIDEMIA, UNSPECIFIED Status: Acute - Plan Plan: 75 y/o male ROSC achieved in field by EMT after cardiac arrest with cardiogenic shock. 1. Cardiogenic shock with arrest in field with ROSC. Improving encephalopathy, likely from anoxic period. - Chest compressions and intubation initiated in the field. V. fib rhythm strip per EMS upon arrival to the ED. - EKG: atrial flutter with rate of 40 - Cardiology Dr. Gaines consulted form ER by Dr. Feliz. Recommending no Cath at admission. However overnight the pt became symptomatic without a reading BP and HR in the 20's. Central line was placed, percutaneous pacing initiated and dopamine and dobutamine started. Pt was taken for a temporary pacer by Dr. Gaines. Strated on heparin ggt on 06/28 for a flutter and in case coronary oc clusion. Off pressor support 06/29. Extubated on 06/29. Cardiology plans to proceed with angiography today, with pacer placement vs open heart surgery pending results of angiography. Heparin ggt d/c's and changed to ppx dose due to low plt count. will jonas with plt <85k. Tranferred to tele on 07/02 with sitter. - Echo: EF 50-55%, mild LVH, mild TR, MR. Mod AR. - In setting of possible anoxic brain injury pt received 32-34 Celsius for several hours, which was discontinued as might have been further contributing to bradycardia. Pt is awake and tolerated extubation on 06/29. Remains somnolent with orientation to person only 07/03. 07/04 awake and alert, OX2. - IV protonix daily - process control tech consulted for dietary needs 06/28. Will get speech consult and determine swallow safety, now that extubated. Not cleared for diet on 06/29, , or . will continue re-eval daily. Pt pulls at lines and not a good candidate for NG tube feeds as he removes lines. - Mental status oriented to person only with agitation and inability to be left alone, requires sitter. Starting to have improved mental status, passed speech eval for a diet on 07/03. Tolerating PO well. Mentation improved to person and place on 07/04, with much more alert behavior. 2. Suspected cardiac arrhythmia as cause of sudden cardiogenic arrest. Complete AV block per Dr. Madera. - Ordered TSH, Mag, Phos, electrolytes and UDS al nml. - Echo and cards consult. see above for documented details. - Dr. Madera placed AICD and pacer on 06/30. Pt tolerated procedure well and RRR paced. keflex for 7 days. 3. Atrial flutter with bradycardia, resolved - EKG showed a flutter wtih rate of 40's - perfusing well with elevated BP and 2+ pulses radial, and dorsalis pedis upon admission, but developed symptoms of hypotension and HR 20's 06/27 overnight. see note from night team. taken for temporary pacer 06/27. Angiography by Dr. Gaines, on 06/30 showed no significant occlusion and permanent pacer and AICD placed by Dr. Madera. - Pt in NSR rate 60 - 70's - Heparin ggt d/c'd now NSR. - Cards consulted, appreciate recs: started REID-I now that renal function improved, started low dose B-loyda. cleared for d/c from cardiac standpoint. 4. Elevated Troponins. - likely secondary to CPR/defibrillation, differnetial does include ischemia, arrhythmia. Refer to Cardiology note for type. Dr. Gaines does not presume this to be occlusive process as the amount of rise in trop does not represent occlusion, but rather post CPR/defibrillation. - Trops: 0.075 > 0.296 > 0.952 - Dr. Gaines consulted for cards. - heparin drip d/c'd and at ppx dose. hold if plt <85k. 5. Acute hypoxic resp failure - resolved - requiring intubation - Pulm consulted for vent management in ICU - extubated and tolerating RA. 06/29. - dark sputum suctioned and fevers on admission. cultured sputum and started vanc plus rocephin. Rocephin only on 06/30. blood and urine ccx as well. - rocephin d/c'd 07/03. 6. ELÍAS, possible underlying CKD. improved - most likely secondary to cargiogenic shock and hypoperfusion temporarily. - will monitor and treat the cause. - IVF hydration increased from 50 ml/hr to 100 ml/hr due to decreased urine output ~30 ml/hr. Also gave 500 ml NS bolus LR this mroning before CATH and contrast. 06/30 IVF's switched to 100 ml/hr 1/2 NS due to slight hypernatremia. IVF 07/02: 75 ml/hr 1/2 NS. Sodium remains 147, will trend. Sodium 149 , Switched IVF's to D5W 75/hr 07/03. Tolerating PO, d/c'd IVF hydration on 07/05 AM. will continue to monitor closely. - urine output increasing and ELÍAS improving day by day 7. Hx of DM - insure of regimen, will seek records - A1C 6.4% - SSI mild - AC/HS accuchecks - goal glucose 140-180 while hospitalized 8. Hx of HTN - PRN IV hydralazine for sys>180 - restarted home dose of lisinopril 20 mg. on metoprolol and lasix as well per cards. - will monitor for improvement and now that renal function improved will titrate up lisinopril. 9. Hypokalemia, improved - will replace PO as indicated 10. Normocytic anemia - will further work up once stable - anemia labs ordered 07/02: iron low @ 32, iron %sat low @ 14, TIBC low at 236, b12 1861 high, folate nml @ 13. - most likely combo of chronic disease and iron deficiency with the low iron % sat. - will start PO iron 11. Thrombocytopenia - was on heparin ggt, likely 2/2 medications. heparin ggt d/c'd and changed to ppx dose. hold if plt <85k. - plt on 07/01: 82k, 07/02: 86k 12. Hypernatremia, improved. - changed IVF to D5W on 07/03, 75 ml/hr - will d.c IVF's now that pt is tolerating diet. PCP: Marian Saravia [facility] Code status: full code per NOK, brother Ad Lobato DVT ppx: heparin ppx, hold if plt <85k GI ppx: PO protonix Dispo: admitted to [facility], inpt. >48 hr anticipated. Inpt rehab consulted for discharge plan Addendum - Attending - Attending Attestation Date/Time: 07/05/20 [id number] I personally evaluated the patient and discussed the management with Dr. Pruitt I agree with the History, Examination, Assessment and Plan documented above with any addition or exceptions noted below - Patient resting; denies any complaints. Afebrile VSS. A/P: 1) S/p cardiac arrest with ROSC- s/p AICD/pacer placement- stable; continue current meds. 2) HTN- BP elevated; meds adjusted. 3) Deconditioning- continue PT/ST/OT; rehab screen placed.
[2020-07-05] MEDS: Ferrous Fumarate 324 MG TAB PO SCH (08:38)
[2020-07-05] MEDS ORDERED: Lisinopril 20 MG TAB PO SCH (09:00)
[2020-07-05] MEDS ORDERED: Lisinopril 5 MG TAB PO SCH (09:00)
[2020-07-05 10:56] VITALS: BMI 35.0
[2020-07-05] MEDS: Atorvastatin Calcium 40 MG TAB PO SCH (20:49)
[2020-07-06] MEDS: GUAIFENESIN SF SOLN 200 MG/10 ML UDCUP PO SCH ×4 (04:05→15:11)
[2020-07-06] MEDS: Cephalexin 250 MG CAP PO SCH ×3 (06:28→17:00)
[2020-07-06 06:51] LABS: Anion Gap 11 mmol/L (10-20); BUN (Urea Nitrogen) 27 mg/dL (8.4-25.7); Calc. Creatinine Clearance 84 mL/min (70-130); Calcium 7.8 mg/dL (7.8-10.44); Carbon Dioxide 22 mmol/L (23-31); Chloride 114 mmol/L (98-107); Glucose 144 mg/dL (83-110); Potassium 3.5 mmol/L (3.5-5.1); Sodium 143 mmol/L (136-145)
--- NOTE | 2020-07-06 07:13 | PDOC.FM ---
- Subjective Subjective: No acute overnight events Pt had continued elevated BP's increased lisinopril rehab eval pending - Objective Vital Signs & Weight: Vital Signs (12 hours) Temp Pulse Resp BP BP Pulse Ox 07/06/20 04:00 98.4 F 85 12 189/88 H 97 07/05/20 23:30 67 169/77 H 95 07/05/20 19:25 98.8 F 63 19 159/74 H 96 Weight Admit Weight 110.9 kg Weight 115.4 kg Most Recent Monitor Data Heart Rate from ECG 75 NIBP 172/84 NIBP BP-Mean 113 Respiration from ECG 25 SpO2 96 I&O: 07/05/20 07/06/20 07/07/20 06:59 06:59 06:59 Intake Total 120 920 Output Total 550 320 Balance -430 600 Result Diagrams: 07/04/20 03:53 07/06/20 06:19 Phys Exam - Physical Examination Constitutional: NAD HEENT: moist MMs, sclera anicteric Neck: supple, full ROM Respiratory: no wheezing, no rales, no rhonchi, clear to auscultation bilateral Cardiovascular: RRR, no significant murmur Gastrointestinal: soft, non-tender, no distention, positive bowel sounds Musculoskeletal: no edema, pulses present Neurological: non-focal, moves all 4 limbs oriented to person, place, time but not situation, needs reminded of event Psychiatric: normal affect, A&O x 3 Skin: normal turgor, cap refill <2 seconds Deviation from normal: pacer site, incision closed, dry, slight redness, no TTP. Dx/Plan (1) Cardiogenic shock Code(s): R57.0 - CARDIOGENIC SHOCK Status: Resolved (2) Atrial flutter Code(s): I48.92 - UNSPECIFIED ATRIAL FLUTTER Status: Acute (3) Hypokalemia Code(s): E87.6 - HYPOKALEMIA Status: Acute (4) Normocytic anemia Code(s): D64.9 - ANEMIA, UNSPECIFIED Status: Acute (5) IDDM (insulin dependent diabetes mellitus) Code(s): WTJ4145 - Status: Acute (6) HTN (hypertension) Code(s): I10 - ESSENTIAL (PRIMARY) HYPERTENSION Status: Acute (7) HLD (hyperlipidemia) Code(s): E78.5 - HYPERLIPIDEMIA, UNSPECIFIED Status: Acute - Plan Plan: 75 y/o male ROSC achieved in field by EMT after cardiac arrest with cardiogenic shock. 1. Cardiogenic shock with arrest in field with ROSC. Improving encephalopathy, likely from anoxic period. - Chest compressions and intubation initiated in the field. V. fib rhythm strip per EMS upon arrival to the ED. - EKG: atrial flutter with rate of 40 - Cardiology Dr. Gaines consulted form ER by Dr. Feliz. Recommending no Cath at admission. However overnight the pt became symptomatic without a reading BP and HR in the 20's. Central line was placed, percutaneous pacing initiated and dopamine and dobutamine started. Pt was taken for a temporary pacer by Dr. Gaines. Strated on heparin ggt on 06/28 for a flutter and in case coronary occlusion. Off pressor support 06/29. Extubated on 06/29. Cardiology plans to proceed with angiography today, with pacer placement vs open heart surgery pending results of angiography. Heparin ggt d/c's and changed to ppx dose due to low plt count. will jonas with plt <85k. Tranferred to tele on 07/02 with sitter. - Echo: EF 50-55%, mild LVH, mild TR, MR. Mod AR. - In setting of possible anoxic brain injury pt received 32-34 Celsius for several hours, which was discontinued as might have been further contributing to bradycardia. Pt is awake and tolerated extubation on 06/29. Remains somnolent with orientation to person only 07/03. 07/04 awake and alert, OX2. - IV protonix daily - director erp consulted for dietary needs 06/28. Will get speech consult and determine swallow safety, now that extubated. Not cleared for diet on 06/29, , or . will continue re-eval daily. Pt pulls at lines and not a good candidate for NG tube feeds as he removes lines. - Mental status oriented to person only with agitation and inability to be left alone, requires sitter. Starting to have improved mental status, passed speech eval for a diet on 07/03. Tolerating PO well. Mentation improved to person and place on 07/04, with much more alert behavior. Improved daily. - D/c pending rehab eval. 2. Suspected cardiac arrhythmia as cause of sudden cardiogenic arrest. Complete AV block per Dr. Madera. - Ordered TSH, Mag, Phos, electrolytes and UDS al nml. - Echo and cards consult. see above for documented details. - Dr. Madera placed AICD and pacer on 06/30. Pt tolerated procedure well and RRR paced. keflex for 7 days. Site looks normal with no signs of infection or dehiscence. 3. Atrial flutter with bradycardia, resolved - EKG showed a flutter wtih rate of 40's - perfusing well with elevated BP and 2+ pulses radial, and dorsalis pedis upon admission, but developed symptoms of hypotension and HR 20's 06/27 overnight. see note from night team. taken for temporary pacer 06/27. Angiography by Dr. Gaines, on 06/30 showed no significant occlusion and permanent pacer and AICD placed by Dr. Madera. - Pt in NSR rate 60 - 70's - Heparin ggt d/c'd now NSR. - Cards consulted, appreciate recs: started REID-I now that renal function improved, started low dose B-loyda. cleared for d/c from cardiac standpoint. 4. Elevated Troponins. - likely secondary to CPR/defibrillation, differnetial does include ischemia, arrhythmia. Refer to Cardiology note for type. Dr. Gaines does not presume this to be occlusive process as the amount of rise in trop does not represent occlusion, but rather post CPR/defibrillation. - Trops: 0.075 > 0.296 > 0.952 - Dr. Gaines consulted for cards. - heparin drip d/c'd and at ppx dose. hold if plt <85k. 5. Acute hypoxic resp failure - resolved - requiring intubation - Pulm consulted for vent management in ICU - extubated and tolerating RA. 06/29. - dark sputum suctioned and fevers on admission. cultured sputum and started vanc plus rocephin. Rocephin only on 06/30. blood and urine ccx as well. - rocephin d/c'd 07/03. 6. ELÍAS, possible underlying CKD. improved - most likely secondary to cargiogenic shock and hypoperfusion temporarily. - will monitor and treat the cause. - IVF hydration increased from 50 ml/hr to 100 ml/hr due to decreased urine output ~30 ml/hr. Also gave 500 ml NS bolus LR this mroning before CATH and contrast. 06/30 IVF's switched to 100 ml/hr 1/2 NS due to slight hypernatremia. IVF 07/02: 75 ml/hr 1/2 NS. Sodium remains 147, will trend. Sodium 149 , Switched IVF's to D5W 75/hr 07/03. Tolerating PO, d/c'd IVF hydration on 07/05 AM. will continue to monitor closely. - urine output increasing and ELÍAS improving day by day 7. Hx of DM - insure of regimen, will seek records - A1C 6.4% - SSI mild - AC/HS accuchecks - goal glucose 140-180 while hospitalized 8. Hx of HTN - PRN IV hydralazine for sys>180 - restarted home dose of lisinopril 20 mg, increased to 40 mg daily on 07/06. on metoprolol and lasix as well per cards. - consider another agent if continued high BP's today. 9. Hypokalemia, improved - will replace PO as indicated 10. Normocytic anemia - will further work up once stable - anemia labs ordered 07/02: iron low @ 32, iron %sat low @ 14, TIBC low at 236, b12 1861 high, folate nml @ 13. - most likely combo of chronic disease and iron deficiency with the low iron % sat. - will start PO iron 11. Thrombocytopenia - plt on 07/01: 82k, 07/02: 86k 12. Hypernatremia, improved. - will d.c IVF's now that pt is tolerating diet. PCP: Marian Saravia [facility] Code status: full code per NOK, brother Ad Lobato DVT ppx: lovenox GI ppx: PO protonix Dispo: admitted to tele, inpt. >48 hr anticipated. Inpt rehab consulted for discharge plan, pending eval. Addendum - Attending - Attending Attestation Date/Time: 07/06/20 [id number] I personally evaluated the patient and discussed the management with Dr. Pruitt I agree with the History, Examination, Assessment and Plan documented above with any addition or exceptions noted below - Patient ambulating in halls with PT. Afebrile VSS. A/P: 1) s/p cardiac arrest with ROSC- s/p AICD/pacer placement- stable, 2) Deconditioning- accepted by rehab; transfer today. 3) HTN- BP meds adjusted today; continue to monitor and adjust
[2020-07-06] MEDS ORDERED: Potassium Chloride 20 MEQ TAB PO SCH (07:30)
[2020-07-06] MEDS: Furosemide 20 MG TAB PO SCH (08:42)
[2020-07-06] MEDS: Ferrous Fumarate 324 MG TAB PO SCH (08:43)
[2020-07-06] MEDS ORDERED: Lisinopril 20 MG TAB PO SCH (09:00)
[2020-07-06] MEDS ORDERED: Enoxaparin Sodium 40 MG/0.4 ML SYRINGE SC SCH (09:00)
[2020-07-06] MEDS: HumaLOG 300 UNITS/3 ML VIAL SC PRN (11:02)
[2020-07-06 15:10] VITALS: BP 165/75; TEMP 99.1
--- NOTE | 2020-07-06 16:57 | PRG ---
DATE OF SERVICE: 07/06/2020 SUBJECTIVE: Mr. Lobato is doing better. He seems little bit more lucid today. No current complaints. OBJECTIVE: VITAL SIGNS: 165/75, pulse 62, temperature 99.1. LUNGS: Clear to auscultation with rhonchi. HEART: Regular rate and rhythm. ABDOMEN: Soft, nontender, nondistended. EXTREMITIES: No edema. IMPRESSION: 1. [id number] arrest. 2. Sick sinus syndrome. 3. Status post pacemaker. RECOMMENDATIONS: Mr. Lobato appears to be stable. His LVEF appears to be normal. At this point, continue with atorvastatin in addition to beta-loyda therapy. We will continue just metoprolol 25 q.a.m. The patient is awaiting placement. Followup is planned for Mr. Lobato in the coming weeks. Job ID: [id number]
--- NOTE | 2020-07-07 04:52 | DIS ---
DATE OF ADMISSION: 06/27/2020 DATE OF DISCHARGE: 07/06/2020 RESIDENT: Loerna Pruitt DO ADMITTING ATTENDING: Anton Galvan MD DISCHARGE ATTENDING: Genna Crawford MD CONSULTATIONS: Cardiology, Dr. Gaines; Pulmonology, Dr. Martinez; Electrophysiology, Dr. Madera; cardiac rehab inpatient and outpatient; Case Management, Dietitian, Physical Therapy and Occupational Therapy, post-acute screening, and Speech eval/treat. PROCEDURES: 1. Intubation in the field on 06/27. 2. Central line of the right groin on 06/27. 3. Temporary pacer placed on 06/28. 4. Extubation on 06/29. 5. Cardiac angiography on 06/30, which was clean with no significant coronary artery disease and AICD/pacer placement by Dr. Madera on 06/30 as well. DIAGNOSES: 1. Cardiogenic shock with VFib arrest in the field with ROSC achieved. 2. Encephalopathy, likely from anoxic. 3. Suspected cardiac arrhythmia called complete atrioventricular block per Dr. Madera, Cabinet Worker. 4. Atrial flutter with bradycardia, resolved. 5. Elevated troponins. 6. Acute hypoxic respiratory failure, resolved. 7. Acute kidney injury, improved. 8. History of type 2 diabetes. 9. History of hypertension. 10. Hypokalemia. 11. Normocytic anemia. 12. Thrombocytopenia. 13. Hypernatremia, improved. DISCONTINUED MEDICATIONS: Cinnamon and lisinopril/hydrochlorothiazide. DISCHARGE MEDICATIONS: 1. Tylenol 650 mg p.o. q.4 hours p.r.n. 2. Lipitor 40 mg p.o. at bedtime. 3. Keflex 500 mg p.o. q.6 hours, 13 of 28 doses given; to discontinue it after 28 doses. 4. Ferrous fumarate 324 mg p.o. q.a.m. with meals. 5. Lasix 20 mg p.o. daily. 6. Robitussin 100 mg p.o. q.4 hours. 7. Atarax 25 mg p.o. q.i.d. p.r.n. 8. Lisinopril 40 mg p.o. daily. 9. Metoprolol succinate 25 mg p.o. daily. 10. Protonix 40 mg p.o. daily. HISTORY OF PRESENT ILLNESS/HOSPITAL COURSE: Mr. Lobato is a 75-year-old male, who collapsed while speaking to the client on 06/27 and was not having a pulse. Chest compressions were started and EMT was called. He was intubated, had chest compressions, and one shock in the field before ROSC was achieved. EMT reported an episode of VFib. The patient was brought to the ER where he was found to be in atrial flutter with a rate of 35 to 40, but with stable blood pressures. He was admitted to the ICU and throughout the night was stable until he had a heart rate in the 20s without perfusion and no readable blood pressure. At this time, a temporary pacer was placed on 06/28 and a central line in the right groin on 06/27. He was started on dobutamine and dopamine, and this maintained his blood pressures and a temporary pacer he was dependent upon. The next day, he was extubated on 06/29 and he was encephalopathic upon awakening, very confused to the situation, place, and time, but oriented to himself. This encephalopathy improved over time. He was very agitated with his temporary pacer, in fact unhooked it once in the middle of the night, heart rate went down to the 20s. When reattached, his heart rate was paced 60s and 70s. The patient underwent a cardioangiography by Dr. Gaines on 06/30, which showed no significant coronary artery disease. At this time, Dr. Gaines diagnosed him with complete AV block and placed an AICD/pacer. The patient's encephalopathy has gradually improved. He is oriented to person, place, and time, but not situation. He needs constant reminder as he is still impulsive with his actions, but his strength has returned and he did well with Physical and Occupational Therapy, recommended discharge to a rehab facility. He was accepted to [facility] on 07/06. It is our recommendation that he have blood pressure control on lisinopril and metoprolol. If he needs to be titrated up, titrate as appropriate with either dosage or third agent. Follow up with Cardiology, Electrophysiology, and primary care soon. The patient did not receive any nutrition for approximately 3 days as he would not tolerate NG tube due to agitation and could not pass a speech eval due to somnolence. However, he did pass on 07/03 and recommendations of pureed thick nectar fluids, the patient tolerated this well. DISPOSITION: Stable and much improved upon discharge. DISCHARGE INSTRUCTIONS: 1. Location: To [facility]. 2. Diet: Heart-healthy and consistent carb. 3. Activity: As tolerated per PT, Occupational Therapy. 4. Follow up with Dr. Gaines, Dr. Madera, and primary care physician. Job ID: [id number] [facility]
--- NOTE | 2020-07-09 19:34 | EKG ---
Test Reason : PREOP Blood Pressure : / mmHG Vent. Rate : 056 BPM Atrial Rate : 044 BPM P-R Int : 202 ms QRS Dur : 156 ms QT Int : 628 ms P-R-T Axes : 050 -65 148 degrees QTc Int : 606 ms Demand pacemaker; interpretation is based on intrinsic rhythm Marked sinus bradycardia with frequent Premature ventricular complexes Right bundle branch block Left anterior fascicular block Bifascicular block T wave abnormality, consider lateral ischemia Abnormal ECG When compared with ECG of 27-JUN-2020 12:21, (Unconfirmed) Sinus rhythm has replaced Atrial flutter T wave inversion more evident in Lateral leads QT has lengthened Confirmed by MINDA WONG, DAREN ([id number]) on 07/09/2020 7:34:22 PM Referred By: CARLITO Confirmed By:DAREN PERLA MD
--- NOTE | 2020-07-09 19:36 | EKG ---
Test Reason : POST ICD Blood Pressure : / mmHG Vent. Rate : 060 BPM Atrial Rate : 060 BPM P-R Int : 144 ms QRS Dur : 190 ms QT Int : 546 ms P-R-T Axes : 017 035 268 degrees QTc Int : 546 ms AV sequential or dual chamber electronic pacemaker When compared with ECG of 29-JUN-2020 12:18, (Unconfirmed) Electronic ventricular pacemaker has replaced Sinus rhythm Confirmed by MINDA WONG, DAREN ([id number]) on 07/09/2020 7:36:08 PM Referred By: DAREN PERLA MD Confirmed By:DAREN PERLA MD
== END 2020-07-06 18:55 | DRG 224 ==
LOC: EEVIPCON 11:49 → ERS 11:49 → CCU 16:05 → 2NO 07-02 14:50
PROVIDERS: ADMIT Student in an Organized Health Care Education/Training Program; ATTEND Family Medicine
PROC: 5A1223Z Performance of Cardiac Pacing, Continuous (ICD-10-PCS; principal; 2020-06-27)
PROC: 0D9670Z Drainage of Stomach with Drainage Device, Via Natural or Artificial Opening (ICD-10-PCS; 2020-06-27)
PROC: 06HY33Z Insertion of Infusion Device into Lower Vein, Percutaneous Approach (ICD-10-PCS; 2020-06-27)
PROC: 04HY32Z Insertion of Monitoring Device into Lower Artery, Percutaneous Approach (ICD-10-PCS; 2020-06-27)
PROC: 0JH608Z Insertion of Defibrillator Generator into Chest Subcutaneous Tissue and Fascia, Open Approach (ICD-10-PCS; 2020-06-30)
PROC: 02HK3KZ Insertion of Defibrillator Lead into Right Ventricle, Percutaneous Approach (ICD-10-PCS; 2020-06-30)
PROC: B2111ZZ Fluoroscopy of Multiple Coronary Arteries using Low Osmolar Contrast (ICD-10-PCS; 2020-06-30)
PROC: 02H63KZ Insertion of Defibrillator Lead into Right Atrium, Percutaneous Approach (ICD-10-PCS; 2020-06-30)
PROC: B2151ZZ Fluoroscopy of Left Heart using Low Osmolar Contrast (ICD-10-PCS; 2020-06-30)
PROC: 4A023N7 Measurement of Cardiac Sampling and Pressure, Left Heart, Percutaneous Approach (ICD-10-PCS; 2020-06-30)
DX: I49.01 Ventricular fibrillation (principal); R57.0 Cardiogenic shock; J96.01 Acute respiratory failure with hypoxia; G93.41 Metabolic encephalopathy; N17.9 Acute kidney failure, unspecified; I24.9 Acute ischemic heart disease, unspecified; G93.1 Anoxic brain damage, not elsewhere classified; E87.0 Hyperosmolality and hypernatremia; I50.30 Unspecified diastolic (congestive) heart failure; I49.9 Cardiac arrhythmia, unspecified; E78.5 Hyperlipidemia, unspecified; R00.1 Bradycardia, unspecified; I48.92 Unspecified atrial flutter; E87.6 Hypokalemia; D64.9 Anemia, unspecified; I46.2 Cardiac arrest due to underlying cardiac condition; D69.6 Thrombocytopenia, unspecified; N18.9 Chronic kidney disease, unspecified; E11.22 Type 2 diabetes mellitus with diabetic chronic kidney disease; I44.2 Atrioventricular block, complete; I12.9 Hypertensive chronic kidney disease with stage 1 through stage 4 chronic kidney disease, or unspecified chronic kidney disease; R77.8 Other specified abnormalities of plasma proteins; Z20.822 Contact with and (suspected) exposure to COVID-19; R13.10 Dysphagia, unspecified; R53.81 Other malaise; Z79.82 Long term (current) use of aspirin; Z79.899 Other long term (current) drug therapy; Z90.89 Acquired absence of other organs; Z78.1 Physical restraint status; Z79.84 Long term (current) use of oral hypoglycemic drugs
CPT/HCPCS: 0240U; 33210; 33249; 36415; 36416; 36600; 51702; 70450; 71045; 72125; 76942; 80048; 80053; 80061; 80306; 82553; 82607; 82746; 82805; 83036; 83540; 83550; 83735; 84100; 84443; 84484; 85025; 85730; 86704; 86705; 86706; 87040; 87086; 87340; 87350; 87389; 87521; 93005; 93010; 93306; 93458; 93798; 94002; 94003; 96365; 96366; 96375; 96376; 99292; C1721; C1777; C1898; C9113; J0360; J0461; J0690; J0696; J1200; J1250; J1265; J1580; J1644; J1650; J1940; J2060; J2250; J2405; J2704; J3010; J3370; J3480; J3486; J3490; J7050; Q9967

== ENCOUNTER 2020-10-25 10:47 | Emergency (ER) | payer MEDICARE, BC, OTHER | END 2020-10-25 13:55 | disposition home or self-care (01) | LOC: ERS 10:47 | DX: S09.90XA Unspecified injury of head, initial encounter (principal); E11.9 Type 2 diabetes mellitus without complications; E78.5 Hyperlipidemia, unspecified; E78.00 Pure hypercholesterolemia, unspecified; I10 Essential (primary) hypertension; N40.0 Benign prostatic hyperplasia without lower urinary tract symptoms; I25.10 Atherosclerotic heart disease of native coronary artery without angina pectoris; I49.9 Cardiac arrhythmia, unspecified; Z79.84 Long term (current) use of oral hypoglycemic drugs; Z79.899 Other long term (current) drug therapy; W19.XXXA Unspecified fall, initial encounter | CPT/HCPCS: 70450; 72125 ==

== ENCOUNTER 2020-10-31 15:33 | Inpatient (IN) | payer MEDICARE, BC, OTHER ==
[~2020-10-31 15:33] MED LIST: Iopamidol-370 76% 500 ML 1 ML ONE
[2020-10-31 16:23] LABS: #Eosinphils 0.2 thou/uL (0.0-0.7); #Lymphocytes 1.8 thou/uL (1.20-3.40); #Monocytes 0.7 thou/uL (0.11-0.59); #Neutrophils 5.8 thou/uL (1.40-6.50); %Basophils 0.5 % (0.0-1.0); %Eosinophils 2.8 % (0.0-10.0); %Lymphocytes 20.6 % (21.0-51.0); %Monocytes 8.3 % (0.0-10.0); %Neutrophils 67.8 % (42.0-75.0); Hemoglobin 11.3 g/dL (14.0-18.0); Mean Corpuscular Volume 84.3 fL (78.0-98.0); Mean Platelet Volume 10.8 fL (7.4-10.4); Platelet Count 143 thou/uL (130-400); RBC Distribution Width 15.5 % (11.5-14.5); Red Blood Cell (RBC) Count 4.18 mill/uL (4.70-6.10); White Blood Cell (WBC) Count 8.6 thou/uL (4.8-10.8)
[2020-10-31 16:28] LABS: Actual Bicarbonate (HCO3v) 21 mEq/L (22-28); Analyzer IN Cardio ER; Base Excess -1.4 mEq/L (-2.0 to +3.0); Calcium, Ionized (venous) 1.07 mmol/L (1.16-1.32); Chloride (VBG) 110 mmol/L (98-106); Hemoglobin (Hb) 12.2 g/dL (12.6-17.4); Potassium (VBG) 3.58 mmol/L (3.70-5.30); Sodium 138.8 mmol/L (133-146); pH (venous) 7.48 (7.32-7.43)
[2020-10-31 16:47] LABS: ALT (SGPT) 11 U/L (8-55); AST (SGOT) 16 U/L (5-34); Albumin 3.8 g/dL (3.4-4.8); Alkaline Phosphatase 48 U/L (40-110); Anion Gap 16 mmol/L (10-20); BUN (Urea Nitrogen) 34 mg/dL (8.4-25.7); Calc. Creatinine Clearance 0 mL/min (70-130); Calcium 9.1 mg/dL (7.8-10.44); Carbon Dioxide 22 mmol/L (23-31); Chloride 111 mmol/L (98-107); Globulin 2.6 g/dL (2.4-3.5); Glucose 150 mg/dL (83-110); Magnesium 1.8 mg/dL (1.6-2.6); Potassium 3.6 mmol/L (3.5-5.1); Protein, Total 6.4 g/dL (5.8-8.1); Sodium 145 mmol/L (136-145)
[2020-10-31 17:06] LABS: CKMB 4.5 ng/mL (0-6.6)
[2020-10-31] MEDS ORDERED: Furosemide 40 MG/4 ML VIAL ONE (17:17)
[2020-10-31] MEDS ORDERED: Aspirin Chewable 81 MG TAB ONE (17:18)
[2020-10-31] MEDS ORDERED: Nitroglycerin 2% Ointment 1 INCH/1 GM Packet ONE (17:35)
[2020-10-31 17:58] LABS: Bacteria/HPF None Seen HPF (None Seen); Bilirubin Negative (Negative); Blood, Urine Trace (Negative); Clarity Clear (Clear); Glucose, Urine (Dipstick) Normal (Negative); Ketone, Urine Negative (Negative); Leukocyte 25 Leu/uL (Negative); Nitrite Negative (Negative); Protein, Urine (Dipstick) 70 mg/dL (Neg-Trace); Specific Gravity, Urine 1.025 (1.002-1.036); Squamous Epithelial 0-3 HPF (0-3); Urobilinogen Normal mg/dL (Less than 2)
[2020-10-31 19:50] LABS: Troponin I 0.117 ng/mL (< 0.028)
[2020-10-31] MEDS ORDERED: Ondansetron ODT 4 MG TAB SL PRN (20:45)
[2020-10-31] MEDS ORDERED: Acetaminophen 325 MG TAB PO PRN ×2 (20:45→21:10)
[2020-10-31] MEDS ORDERED: Ondansetron PF 4 MG/2 ML Vial IVP PRN ×2 (20:45→21:10)
[2020-10-31] MEDS ORDERED: HumaLOG 300 UNITS/3 ML VIAL SC PRN (21:14)
[2020-10-31] MEDS ORDERED: Dextrose 5% in Water 1,000 ML IV PRN (21:14)
[2020-10-31] MEDS ORDERED: Dextrose 50% Abboject 50 ML SYRINGE SLOW IVP PRN (21:14)
[2020-10-31 21:16] VITALS: BMI 29.1
[2020-10-31 22:24] LABS: Amphetamine Not Detected (NotDetected); Barbiturates Screen Not Detected (NotDetected); Benzodiazepine Screen Not Detected (NotDetected); Cocaine Metabolite Screen Not Detected (NotDetected); Medtox Control Line Valid? VALID (VALID); Medtox Reader # READER 4; Methadone Not Detected (NotDetected); Methamphetamine Not Detected (NotDetected); Opiate Screen Not Detected (NotDetected); Oxycodone Screen Not Detected (NotDetected); Phencyclidine (PCP) Not Detected (NotDetected); THC/Cannabinoid Screen Not Detected (NotDetected); Tricyclic Screen Not Detected (NotDetected)
[2020-11-01 01:16] LABS: SARS-CoV-2 PCR by NAA Not Detected (NotDetected)
[2020-11-01] MEDS: Melatonin 3 MG TAB PO PRN ×2 (03:49→21:47)
[2020-11-01] MEDS: cefTRIAXone\\ROCEPHIN 1 GM in Sodium Chloride 0.9% 100 ML IVPB SCH (05:36)
[2020-11-01] MEDS: Furosemide 40 MG/4 ML VIAL SLOW IVP SCH ×2 (05:37→14:32)
[2020-11-01 05:58] LABS: Anion Gap 13 mmol/L (10-20); BUN (Urea Nitrogen) 34 mg/dL (8.4-25.7); Calc. Creatinine Clearance 57 mL/min (70-130); Calcium 8.7 mg/dL (7.8-10.44); Carbon Dioxide 25 mmol/L (23-31); Chloride 113 mmol/L (98-107); Glucose 119 mg/dL (83-110); Magnesium 1.7 mg/dL (1.6-2.6); Potassium 3.3 mmol/L (3.5-5.1); Sodium 148 mmol/L (136-145)
[2020-11-01 06:07] LABS: #Eosinphils 0.3 thou/uL (0.0-0.7); #Lymphocytes 1.6 thou/uL (1.20-3.40); #Monocytes 0.6 thou/uL (0.11-0.59); #Neutrophils 5.6 thou/uL (1.40-6.50); %Basophils 0.3 % (0.0-1.0); %Eosinophils 3.5 % (0.0-10.0); %Lymphocytes 19.3 % (21.0-51.0); %Monocytes 7.3 % (0.0-10.0); %Neutrophils 69.7 % (42.0-75.0); Band 3 % (5-11); Elliptocytes SLIGHT = 2-5 cells (100X) (0-1/hpf); Eosinophils 2 % (0-10); Hemoglobin 10.5 g/dL (14.0-18.0); Hypochromia SLIGHT = 6-15 cells (100X) (0-5/hpf); Lymphocytes 10 % (21-51); MDiff Complete? YES; Mean Corpuscular HGB CONC 30.8 g/dL (32.0-36.0); Mean Corpuscular Hemoglobin 26.3 pg (27.0-31.0); Mean Corpuscular Volume 85.3 fL (78.0-98.0); Monocytes 4 % (0-10); Neutrophil 81 % (42-75); Platelet Count 118 thou/uL (130-400); Platelet Morphology Comment Appears Decreased; RBC Distribution Width 15.4 % (11.5-14.5); Red Blood Cell (RBC) Count 3.99 mill/uL (4.70-6.10); White Blood Cell (WBC) Count 8.1 thou/uL (4.8-10.8)
[2020-11-01] MEDS: Heparin 5,000 UNITS/ML VIAL SC SCH ×3 (07:34→21:21)
[2020-11-01] MEDS ORDERED: Guaifenesin DM 100-10/5 ML UDCUP PO PRN (13:08)
[2020-11-02] MEDS: cefTRIAXone\\ROCEPHIN 1 GM in Sodium Chloride 0.9% 100 ML IVPB SCH (05:45)
[2020-11-02] MEDS: Furosemide 40 MG/4 ML VIAL SLOW IVP SCH (05:45)
[2020-11-02 05:58] LABS: #Eosinphils 0.3 thou/uL (0.0-0.7); #Lymphocytes 1.5 thou/uL (1.20-3.40); #Monocytes 0.7 thou/uL (0.11-0.59); #Neutrophils 5.2 thou/uL (1.40-6.50); %Basophils 0.5 % (0.0-1.0); %Lymphocytes 18.9 % (21.0-51.0); %Monocytes 8.7 % (0.0-10.0); %Neutrophils 67.9 % (42.0-75.0); Hemoglobin 10.8 g/dL (14.0-18.0); Mean Corpuscular HGB CONC 32.8 g/dL (32.0-36.0); Mean Corpuscular Hemoglobin 27.9 pg (27.0-31.0); Mean Platelet Volume 10.2 fL (7.4-10.4); Platelet Count 114 thou/uL (130-400); RBC Distribution Width 15.3 % (11.5-14.5); Red Blood Cell (RBC) Count 3.87 mill/uL (4.70-6.10); White Blood Cell (WBC) Count 7.6 thou/uL (4.8-10.8)
[2020-11-02 06:14] LABS: Anion Gap 14 mmol/L (10-20); BUN (Urea Nitrogen) 29 mg/dL (8.4-25.7); Calc. Creatinine Clearance 60 mL/min (70-130); Calcium 8.3 mg/dL (7.8-10.44); Carbon Dioxide 26 mmol/L (23-31); Chloride 111 mmol/L (98-107); Glucose 122 mg/dL (83-110); Magnesium 1.8 mg/dL (1.6-2.6); Sodium 148 mmol/L (136-145)
[2020-11-02] MEDS: Heparin 5,000 UNITS/ML VIAL SC SCH ×3 (08:56→20:56)
[2020-11-02] MEDS ORDERED: Potassium Chloride 20 MEQ TAB PO SCH (10:00)
[2020-11-02] MEDS: HumaLOG 300 UNITS/3 ML VIAL SC PRN (12:44)
[2020-11-02] MEDS: Atorvastatin Calcium 40 MG TAB PO SCH (20:55)
[2020-11-02] MEDS: Melatonin 3 MG TAB PO SCH (20:55)
[2020-11-03] MEDS: cefTRIAXone\\ROCEPHIN 1 GM in Sodium Chloride 0.9% 100 ML IVPB SCH (04:52)
[2020-11-03 04:57] LABS: #Eosinphils 0.3 thou/uL (0.0-0.7); #Lymphocytes 1.7 thou/uL (1.20-3.40); #Monocytes 0.6 thou/uL (0.11-0.59); #Neutrophils 5.4 thou/uL (1.40-6.50); %Basophils 0.3 % (0.0-1.0); %Eosinophils 4.1 % (0.0-10.0); %Lymphocytes 21.4 % (21.0-51.0); %Monocytes 7.9 % (0.0-10.0); %Neutrophils 66.3 % (42.0-75.0); Hemoglobin 10.4 g/dL (14.0-18.0); Mean Corpuscular HGB CONC 31.3 g/dL (32.0-36.0); Mean Corpuscular Hemoglobin 26.7 pg (27.0-31.0); Mean Corpuscular Volume 85.5 fL (78.0-98.0); Mean Platelet Volume 10.3 fL (7.4-10.4); Platelet Count 126 thou/uL (130-400); RBC Distribution Width 15.3 % (11.5-14.5); Red Blood Cell (RBC) Count 3.89 mill/uL (4.70-6.10); White Blood Cell (WBC) Count 8.1 thou/uL (4.8-10.8)
[2020-11-03 05:27] LABS: Anion Gap 12 mmol/L (10-20); BUN (Urea Nitrogen) 28 mg/dL (8.4-25.7); Calc. Creatinine Clearance 60 mL/min (70-130); Calcium 7.8 mg/dL (7.8-10.44); Carbon Dioxide 27 mmol/L (23-31); Chloride 110 mmol/L (98-107); Glucose 116 mg/dL (83-110); Magnesium 1.8 mg/dL (1.6-2.6); Potassium 3.1 mmol/L (3.5-5.1); Sodium 146 mmol/L (136-145)
[2020-11-03] MEDS: Furosemide 40 MG/4 ML VIAL SLOW IVP SCH (08:39)
[2020-11-03] MEDS: Heparin 5,000 UNITS/ML VIAL SC SCH ×3 (08:39→20:54)
[2020-11-03] MEDS: Aspirin 81 mg Enteric Coated Tablet PO SCH (08:40)
[2020-11-03] MEDS: Ferrous Fumarate 324 MG TAB PO SCH (08:40)
[2020-11-03] MEDS: HumaLOG 300 UNITS/3 ML VIAL SC PRN (11:32)
[2020-11-03] MEDS ORDERED: Potassium Chloride 20 MEQ TAB PO SCH (12:00)
[2020-11-03] MEDS: hydrALAZINE 25 MG TAB PO SCH ×2 (15:45→20:53)
[2020-11-03] MEDS: Atorvastatin Calcium 40 MG TAB PO SCH (20:53)
[2020-11-03] MEDS: Melatonin 3 MG TAB PO SCH (20:53)
[2020-11-04] MEDS: cefTRIAXone\\ROCEPHIN 1 GM in Sodium Chloride 0.9% 100 ML IVPB SCH (05:38)
[2020-11-04] MEDS: Heparin 5,000 UNITS/ML VIAL SC SCH ×3 (08:30→21:57)
[2020-11-04] MEDS: Furosemide 40 MG/4 ML VIAL SLOW IVP SCH (08:30)
[2020-11-04] MEDS: hydrALAZINE 25 MG TAB PO SCH ×3 (08:31→21:56)
[2020-11-04] MEDS: Ferrous Fumarate 324 MG TAB PO SCH (08:31)
[2020-11-04] MEDS: Aspirin 81 mg Enteric Coated Tablet PO SCH (08:31)
[2020-11-04 10:41] LABS: Anion Gap 14 mmol/L (10-20); BUN (Urea Nitrogen) 24 mg/dL (8.4-25.7); Calc. Creatinine Clearance 63 mL/min (70-130); Calcium 8.5 mg/dL (7.8-10.44); Carbon Dioxide 27 mmol/L (23-31); Chloride 108 mmol/L (98-107); Glucose 170 mg/dL (83-110); Magnesium 1.8 mg/dL (1.6-2.6); Potassium 3.3 mmol/L (3.5-5.1); Sodium 146 mmol/L (136-145)
[2020-11-04] MEDS ORDERED: Potassium Chloride 20 MEQ TAB PO SCH (12:15)
[2020-11-04] MEDS: HumaLOG 300 UNITS/3 ML VIAL SC PRN (17:34)
[2020-11-04] MEDS: Melatonin 3 MG TAB PO SCH (21:56)
[2020-11-04] MEDS: Atorvastatin Calcium 40 MG TAB PO SCH (21:56)
[2020-11-05 08:23] LABS: Chloride 109 mmol/L (98-107); Potassium 3.2 mmol/L (3.5-5.1); Sodium 145 mmol/L (136-145)
[2020-11-05 08:24] LABS: Calcium 8.7 mg/dL (7.8-10.44); Glucose 175 mg/dL (83-110)
[2020-11-05] MEDS: Heparin 5,000 UNITS/ML VIAL SC SCH ×3 (08:24→20:43)
[2020-11-05] MEDS: Furosemide 40 MG TAB PO SCH (08:25)
[2020-11-05] MEDS: Aspirin 81 mg Enteric Coated Tablet PO SCH (08:25)
[2020-11-05] MEDS: hydrALAZINE 25 MG TAB PO SCH ×3 (08:25→20:44)
[2020-11-05 08:26] LABS: Anion Gap 11 mmol/L (10-20); Carbon Dioxide 28 mmol/L (23-31)
[2020-11-05] MEDS: Ferrous Fumarate 324 MG TAB PO SCH (08:27)
[2020-11-05 08:28] LABS: Calc. Creatinine Clearance 67 mL/min (70-130)
[2020-11-05 08:29] LABS: BUN (Urea Nitrogen) 21 mg/dL (8.4-25.7)
[2020-11-05] MEDS ORDERED: Potassium Chloride 20 MEQ TAB PO SCH ×2 (09:30→17:00)
[2020-11-05 11:19] LABS: Anion Gap 12 mmol/L (10-20); BUN (Urea Nitrogen) 21 mg/dL (8.4-25.7); Calc. Creatinine Clearance 68 mL/min (70-130); Calcium 8.8 mg/dL (7.8-10.44); Carbon Dioxide 26 mmol/L (23-31); Chloride 110 mmol/L (98-107); Glucose 187 mg/dL (83-110); Potassium 3.4 mmol/L (3.5-5.1); Sodium 145 mmol/L (136-145)
[2020-11-05] MEDS: HumaLOG 300 UNITS/3 ML VIAL SC PRN (11:44)
[2020-11-05] MEDS: Atorvastatin Calcium 40 MG TAB PO SCH (20:44)
[2020-11-05] MEDS: Melatonin 3 MG TAB PO SCH (20:44)
[2020-11-06 07:21] LABS: Anion Gap 10 mmol/L (10-20); BUN (Urea Nitrogen) 20 mg/dL (8.4-25.7); Calc. Creatinine Clearance 72 mL/min (70-130); Calcium 8.6 mg/dL (7.8-10.44); Carbon Dioxide 25 mmol/L (23-31); Chloride 112 mmol/L (98-107); Glucose 122 mg/dL (83-110); Potassium 3.4 mmol/L (3.5-5.1); Sodium 144 mmol/L (136-145)
[2020-11-06] MEDS ORDERED: Potassium Chloride 20 MEQ TAB PO SCH (07:30)
[2020-11-06] MEDS ORDERED: Spironolactone 25 MG TAB PO SCH (08:00)
[2020-11-06] MEDS: Heparin 5,000 UNITS/ML VIAL SC SCH ×2 (08:17→15:29)
[2020-11-06] MEDS: Furosemide 40 MG TAB PO SCH (08:17)
[2020-11-06] MEDS: Ferrous Fumarate 324 MG TAB PO SCH (08:18)
[2020-11-06] MEDS: Aspirin 81 mg Enteric Coated Tablet PO SCH (08:18)
[2020-11-06] MEDS: hydrALAZINE 25 MG TAB PO SCH ×2 (08:18→15:29)
[2020-11-06] MEDS: HumaLOG 300 UNITS/3 ML VIAL SC PRN (11:24)
[2020-11-06 19:53] VITALS: BP 128/62; TEMP 98.1
== END 2020-11-06 19:55 | disposition home or self-care (01) | DRG 291 ==
LOC: ERS 15:33 → 2SE 18:38 → 2NO 11-02 19:11
PROVIDERS: ADMIT Internal Medicine; ATTEND Internal Medicine
DX: I13.0 Hypertensive heart and chronic kidney disease with heart failure and stage 1 through stage 4 chronic kidney disease, or unspecified chronic kidney disease (principal); J96.01 Acute respiratory failure with hypoxia; G93.41 Metabolic encephalopathy; I50.23 Acute on chronic systolic (congestive) heart failure; N39.0 Urinary tract infection, site not specified; N17.9 Acute kidney failure, unspecified; I48.92 Unspecified atrial flutter; E78.5 Hyperlipidemia, unspecified; I42.0 Dilated cardiomyopathy; E11.22 Type 2 diabetes mellitus with diabetic chronic kidney disease; I25.10 Atherosclerotic heart disease of native coronary artery without angina pectoris; N18.30 Chronic kidney disease, stage 3 unspecified; E87.6 Hypokalemia; R26.89 Other abnormalities of gait and mobility; D64.9 Anemia, unspecified; Z79.82 Long term (current) use of aspirin; Z79.84 Long term (current) use of oral hypoglycemic drugs; Z95.810 Presence of automatic (implantable) cardiac defibrillator; Z80.0 Family history of malignant neoplasm of digestive organs; Z80.41 Family history of malignant neoplasm of ovary
CPT/HCPCS: 36415; 36416; 70496; 70498; 71045; 80048; 80053; 80306; 81003; 81015; 82553; 82805; 83735; 83880; 84484; 85025; 85379; 87040; 87086; 87635; 93005; 93306; 93798; 94640; 94760; 96365; 96375; J0696; J1644; J1815; J1940; J1956; J3490; J7620; Q9967; U0003; U0005

== ENCOUNTER 2020-11-24 17:24 | Inpatient (IN) | payer MEDICARE, BC, OTHER ==
[2020-11-24 19:04] LABS: #Eosinphils 0.2 thou/uL (0.0-0.7); #Monocytes 0.8 thou/uL (0.11-0.59); #Neutrophils 5.5 thou/uL (1.40-6.50); %Basophils 0.2 % (0.0-1.0); %Eosinophils 2.5 % (0.0-10.0); %Lymphocytes 13.8 % (21.0-51.0); %Monocytes 10.8 % (0.0-10.0); %Neutrophils 72.7 % (42.0-75.0); Hemoglobin 10.2 g/dL (14.0-18.0); Mean Corpuscular HGB CONC 33.6 g/dL (32.0-36.0); Mean Corpuscular Volume 83.5 fL (78.0-98.0); Mean Platelet Volume 9.6 fL (7.4-10.4); Platelet Count 145 thou/uL (130-400); RBC Distribution Width 15.6 % (11.5-14.5); Red Blood Cell (RBC) Count 3.63 mill/uL (4.70-6.10); White Blood Cell (WBC) Count 7.5 thou/uL (4.8-10.8)
[2020-11-24] MEDS ORDERED: Nitroglycerin 2% Ointment 1 INCH/1 GM Packet ONE (19:16)
[2020-11-24] MEDS ORDERED: Furosemide 40 MG/4 ML VIAL ONE (19:16)
[2020-11-24] MEDS ORDERED: Aspirin Chewable 81 MG TAB ONE (19:16)
[2020-11-24 19:22] LABS: CKMB 1.5 ng/mL (0-6.6)
[2020-11-24 19:30] LABS: AST (SGOT) 22 U/L (5-34); Anion Gap 18 mmol/L (10-20); Bilirubin, Total 0.6 mg/dL (0.2-1.2); Calcium 8.1 mg/dL (7.8-10.44); Carbon Dioxide 15 mmol/L (23-31); Chloride 114 mmol/L (98-107); Potassium 3.8 mmol/L (3.5-5.1); Protein, Total 4.7 g/dL (5.8-8.1); Sodium 143 mmol/L (136-145)
[2020-11-24 19:58] LABS: Albumin 3.3 g/dL (3.4-4.8); Globulin 1.4 g/dL (2.4-3.5)
[2020-11-24 20:00] LABS: Glucose 115 mg/dL (83-110)
[2020-11-24 20:01] LABS: Bilirubin Negative (Negative); Blood, Urine Negative (Negative); Glucose, Urine (Dipstick) Negative (Negative); Ketone, Urine Negative (Negative); Leukocyte Negative (Negative); Nitrite Negative (Negative); Protein, Urine (Dipstick) Negative (Neg-Trace); Specific Gravity, Urine 1.015 (1.005-1.030); Urobilinogen 0.2 mg/dL (Less than 2)
[2020-11-24 20:02] LABS: Clarity Clear (Clear)
[2020-11-24 20:04] LABS: Calc. Creatinine Clearance 0 mL/min (70-130)
[2020-11-24 20:05] LABS: BUN (Urea Nitrogen) 31 mg/dL (8.4-25.7)
[2020-11-24 20:07] LABS: Alkaline Phosphatase 47 U/L (40-110)
[2020-11-24 20:10] LABS: ALT (SGPT) 21 U/L (8-55)
[2020-11-24 20:11] LABS: CK (CPK) 84 U/L (30-200); Lipase 69 U/L (8-78)
[2020-11-24 23:24] VITALS: BMI 26.9
[2020-11-25] MEDS ORDERED: Acetaminophen 325 MG TAB PO PRN (03:34)
[2020-11-25] MEDS ORDERED: Ondansetron ODT 4 MG TAB PO PRN (03:34)
[2020-11-25] MEDS ORDERED: Acetaminophen 650 MG Suppository PR PRN (03:34)
[2020-11-25] MEDS ORDERED: Ondansetron PF 4 MG/2 ML Vial IVP PRN (03:34)
[2020-11-25 05:22] LABS: Troponin I 0.053 ng/mL (< 0.028)
[2020-11-25] MEDS: Furosemide 40 MG/4 ML VIAL SLOW IVP SCH ×2 (05:42→13:37)
[2020-11-25] MEDS: Enoxaparin Sodium 40 MG/0.4 ML SYRINGE SC SCH (09:12)
[2020-11-25] MEDS: ALPRAZolam 0.25 MG TAB PO SCH ×2 (13:37→21:36)
[2020-11-25] MEDS ORDERED: Melatonin 3 MG TAB PO SCH (21:00)
[2020-11-25] MEDS: metFORMIN 500 MG TAB PO SCH (21:37)
[2020-11-26 04:47] LABS: #Eosinphils 0.2 thou/uL (0.0-0.7); #Lymphocytes 1.3 thou/uL (1.20-3.40); #Monocytes 0.6 thou/uL (0.11-0.59); #Neutrophils 3.8 thou/uL (1.40-6.50); %Basophils 0.4 % (0.0-1.0); %Eosinophils 3.4 % (0.0-10.0); %Lymphocytes 21.2 % (21.0-51.0); %Monocytes 10.1 % (0.0-10.0); %Neutrophils 64.9 % (42.0-75.0); Hemoglobin 9.9 g/dL (14.0-18.0); Mean Corpuscular HGB CONC 32.8 g/dL (32.0-36.0); Mean Corpuscular Hemoglobin 27.6 pg (27.0-31.0); Mean Corpuscular Volume 84.2 fL (78.0-98.0); Platelet Count 137 thou/uL (130-400); RBC Distribution Width 15.3 % (11.5-14.5); White Blood Cell (WBC) Count 5.9 thou/uL (4.8-10.8)
[2020-11-26 05:28] LABS: Anion Gap 15 mmol/L (10-20); BUN (Urea Nitrogen) 32 mg/dL (8.4-25.7); Calc. Creatinine Clearance 61 mL/min (70-130); Calcium 8.5 mg/dL (7.8-10.44); Carbon Dioxide 22 mmol/L (23-31); Chloride 109 mmol/L (98-107); Glucose 110 mg/dL (83-110); Sodium 143 mmol/L (136-145)
[2020-11-26] MEDS: Furosemide 40 MG/4 ML VIAL SLOW IVP SCH ×2 (05:38→15:14)
[2020-11-26] MEDS ORDERED: Ferrous Fumarate 324 MG TAB PO SCH (08:00)
[2020-11-26] MEDS ORDERED: Metolazone 2.5 MG TAB PO SCH (08:30)
[2020-11-26] MEDS: Enoxaparin Sodium 40 MG/0.4 ML SYRINGE SC SCH (08:54)
[2020-11-26] MEDS: ALPRAZolam 0.25 MG TAB PO SCH ×2 (08:54→15:14)
[2020-11-26] MEDS: metFORMIN 500 MG TAB PO SCH (08:55)
[2020-11-26] MEDS ORDERED: Spironolactone 25 MG TAB PO SCH (09:00)
[2020-11-26] MEDS ORDERED: Aspirin 81 mg Enteric Coated Tablet PO SCH (09:00)
[2020-11-26 09:37] LABS: SARS-CoV-2 NAA Rapid Test Not Detected (NotDetected)
[2020-11-26 14:59] VITALS: TEMP 98
[2020-11-26 15:49] VITALS: BP 123/61
[2020-11-26] MEDS ORDERED: Atorvastatin Calcium 40 MG TAB PO SCH (21:00)
== END 2020-11-26 17:00 | disposition home or self-care (01) | DRG 291 ==
LOC: ERS 17:24 → 2NO 21:51
PROVIDERS: ADMIT Student in an Organized Health Care Education/Training Program; ATTEND Family Medicine
DX: I13.0 Hypertensive heart and chronic kidney disease with heart failure and stage 1 through stage 4 chronic kidney disease, or unspecified chronic kidney disease (principal); I50.23 Acute on chronic systolic (congestive) heart failure; Z20.822 Contact with and (suspected) exposure to COVID-19; E78.5 Hyperlipidemia, unspecified; E78.00 Pure hypercholesterolemia, unspecified; N40.0 Benign prostatic hyperplasia without lower urinary tract symptoms; I25.10 Atherosclerotic heart disease of native coronary artery without angina pectoris; R77.8 Other specified abnormalities of plasma proteins; I42.8 Other cardiomyopathies; N18.30 Chronic kidney disease, stage 3 unspecified; E11.22 Type 2 diabetes mellitus with diabetic chronic kidney disease; D63.1 Anemia in chronic kidney disease; Z79.899 Other long term (current) drug therapy; Z79.82 Long term (current) use of aspirin; Z79.01 Long term (current) use of anticoagulants; Z90.89 Acquired absence of other organs; Z95.810 Presence of automatic (implantable) cardiac defibrillator; Z91.11 Patient's noncompliance with dietary regimen
CPT/HCPCS: 36415; 36416; 71045; 80048; 80053; 81003; 82550; 82553; 83690; 83880; 84484; 85025; 93005; 93798; 96374; J1650; J1940; U0002; U0003; U0005

== ENCOUNTER 2021-01-21 13:45 | Emergency (ER) | payer MEDICARE, BC, OTHER ==
[~2021-01-21 13:45] MED LIST changes: +Iopamidol 370 76% 100 ML VIAL ONE; -Iopamidol-370 76% 500 ML 1 ML ONE
[2021-01-21 14:21] LABS: #Eosinphils 0.2 thou/uL (0.0-0.7); #Lymphocytes 1.5 thou/uL (1.20-3.40); #Monocytes 0.5 thou/uL (0.11-0.59); #Neutrophils 4.6 thou/uL (1.40-6.50); %Basophils 0.5 % (0.0-1.0); %Eosinophils 3.4 % (0.0-10.0); %Lymphocytes 21.5 % (21.0-51.0); %Monocytes 7.9 % (0.0-10.0); %Neutrophils 66.6 % (42.0-75.0); Hemoglobin 12.8 g/dL (14.0-18.0); Mean Corpuscular HGB CONC 33.2 g/dL (32.0-36.0); Mean Corpuscular Hemoglobin 29.3 pg (27.0-31.0); Mean Corpuscular Volume 88.3 fL (78.0-98.0); Platelet Count 114 thou/uL (130-400); RBC Distribution Width 16.2 % (11.5-14.5); Red Blood Cell (RBC) Count 4.37 mill/uL (4.70-6.10); White Blood Cell (WBC) Count 6.8 thou/uL (4.8-10.8)
[2021-01-21 14:38] LABS: ALT (SGPT) 15 U/L (8-55); AST (SGOT) 17 U/L (5-34); Albumin 3.8 g/dL (3.4-4.8); Alkaline Phosphatase 46 U/L (40-110); Anion Gap 10 mmol/L (10-20); BUN (Urea Nitrogen) 30 mg/dL (8.4-25.7); Bilirubin, Total 1.2 mg/dL (0.2-1.2); Calc. Creatinine Clearance 0 mL/min (70-130); Calcium 9.3 mg/dL (7.8-10.44); Carbon Dioxide 32 mmol/L (23-31); Chloride 102 mmol/L (98-107); Glucose 175 mg/dL (83-110); Lipase 57 U/L (8-78); Potassium 3.3 mmol/L (3.5-5.1); Protein, Total 6.8 g/dL (5.8-8.1); Sodium 141 mmol/L (136-145)
[2021-01-21] MEDS ORDERED: Morphine 2 MG/ML VIAL ONE (16:28)
== END 2021-01-21 17:24 | disposition home or self-care (01) ==
LOC: ERS 13:45
DX: K42.9 Umbilical hernia without obstruction or gangrene (principal); E11.9 Type 2 diabetes mellitus without complications; E78.5 Hyperlipidemia, unspecified; N40.0 Benign prostatic hyperplasia without lower urinary tract symptoms; D64.9 Anemia, unspecified; I25.10 Atherosclerotic heart disease of native coronary artery without angina pectoris; I11.0 Hypertensive heart disease with heart failure; I50.9 Heart failure, unspecified; M10.9 Gout, unspecified; Z79.82 Long term (current) use of aspirin; Z79.899 Other long term (current) drug therapy
CPT/HCPCS: 74177; 80053; 83690; 85025; J2270; 36415

== ENCOUNTER 2021-10-04 10:39 | Outpatient (CLI) | payer MEDICARE, BC | END 2021-10-04 10:40 | disposition home or self-care (01) | LOC: BICULT 10:39 | PROVIDERS: ATTEND Internal Medicine Nephrology | DX: N18.30 Chronic kidney disease, stage 3 unspecified (principal); N40.0 Benign prostatic hyperplasia without lower urinary tract symptoms | CPT/HCPCS: 76770 ==

== ENCOUNTER 2021-10-29 13:21 | Emergency (ER) | payer MEDICARE, BC ==
[2021-10-29 15:06] LABS: #Eosinphils 0.2 thou/uL (0.0-0.7); #Lymphocytes 1.1 thou/uL (1.20-3.40); #Monocytes 0.5 thou/uL (0.11-0.59); #Neutrophils 3.5 thou/uL (1.40-6.50); %Basophils 0.1 % (0.0-1.0); %Lymphocytes 20.3 % (21.0-51.0); %Monocytes 9.2 % (0.0-10.0); %Neutrophils 67.4 % (42.0-75.0); Hemoglobin 12.6 g/dL (14.0-18.0); Mean Corpuscular HGB CONC 32.6 g/dL (32.0-36.0); Mean Corpuscular Volume 95.2 fL (78.0-98.0); Mean Platelet Volume 8.7 fL (7.4-10.4); Platelet Count 99 thou/uL (130-400); RBC Distribution Width 12.5 % (11.5-14.5); Red Blood Cell (RBC) Count 4.07 mill/uL (4.70-6.10); White Blood Cell (WBC) Count 5.3 thou/uL (4.8-10.8)
[2021-10-29 15:31] LABS: ALT (SGPT) 29 U/L (8-55); AST (SGOT) 25 U/L (5-34); Albumin 3.9 g/dL (3.4-4.8); Alkaline Phosphatase 54 U/L (40-110); Anion Gap 14 mmol/L (10-20); BUN (Urea Nitrogen) 29 mg/dL (8.4-25.7); Calc. Creatinine Clearance 0 mL/min (70-130); Calcium 8.8 mg/dL (7.8-10.44); Carbon Dioxide 28 mmol/L (23-31); Chloride 108 mmol/L (98-107); Globulin 2.4 g/dL (2.4-3.5); Glucose 105 mg/dL (83-110); Potassium 3.6 mmol/L (3.5-5.1); Protein, Total 6.3 g/dL (5.8-8.1); Sodium 146 mmol/L (136-145)
== END 2021-10-29 17:13 | disposition home or self-care (01) ==
LOC: ERS 13:21
DX: R05.9 Cough, unspecified (principal); E11.9 Type 2 diabetes mellitus without complications; E78.5 Hyperlipidemia, unspecified; I11.0 Hypertensive heart disease with heart failure; I50.9 Heart failure, unspecified
CPT/HCPCS: 36415; 71045; 80053; 83880; 84484; 85025; 93005

== ENCOUNTER 2022-10-09 11:53 | Outpatient (CLI) | payer MEDICARE, BC | END 2022-10-09 11:54 | disposition home or self-care (01) | LOC: BICRAD 11:53 | PROVIDERS: ATTEND Nurse Practitioner Family | DX: R09.89 Other specified symptoms and signs involving the circulatory and respiratory systems (principal) | CPT/HCPCS: 71046 ==

== ENCOUNTER 2023-02-06 12:42 | Emergency (ER) | payer MEDICARE, BC ==
[2023-02-06] MEDS ORDERED: HYDROcodone/Acetaminophen 10/325 mg Tablet ONE (13:27)
[2023-02-06 14:05] LABS: Bacteria/HPF None Seen HPF (None Seen); Bilirubin Negative (Negative); Blood, Urine Negative (Negative); CAUTI Indications for Culture Dysuria,urgency,freq; Clarity Clear (Clear); Glucose, Urine (Dipstick) Normal (Negative); Ketone, Urine Negative (Negative); Leukocyte Negative Leu/uL (Negative); Nitrite Negative (Negative); Protein, Urine (Dipstick) Negative (Neg-Trace); RBC/HPF 0-3 HPF (0-3); Specific Gravity, Urine 1.013 (1.002-1.036); Squamous Epithelial None Seen HPF (0-3); Urobilinogen Normal mg/dL (Less than 2); WBC/HPF 0-3 HPF (0-3)
[2023-02-06 14:08] LABS: Urine Culture Reflex No No
== END 2023-02-06 15:02 | disposition home or self-care (01) ==
LOC: ERS 12:42
DX: M10.072 Idiopathic gout, left ankle and foot (principal); E11.9 Type 2 diabetes mellitus without complications; E78.5 Hyperlipidemia, unspecified; I25.10 Atherosclerotic heart disease of native coronary artery without angina pectoris; I13.2 Hypertensive heart and chronic kidney disease with heart failure and with stage 5 chronic kidney disease, or end stage renal disease; N18.6 End stage renal disease; I50.9 Heart failure, unspecified
CPT/HCPCS: 81001

== ENCOUNTER 2023-04-20 10:53 | Inpatient (IN) | payer MEDICARE, BC ==
[2023-04-20] MEDS ORDERED: Acetaminophen 325 MG TAB ONE (11:32)
[2023-04-20 11:53] LABS: #Neutrophils 12.4 thou/uL (1.40-6.50); %Basophils 0.1 % (0.0-1.0); %Lymphocytes 3.9 % (21.0-51.0); %Neutrophils 88.6 % (42.0-75.0); Actual Bicarbonate (HCO3v) 22.7 mEq/L (22-28); Analyzer IN Cardio ER; Base Excess -0.6 mEq/L (-2.0 to +3.0); Calcium, Ionized (venous) 1.05 mmol/L (1.16-1.32); Chloride (VBG) 104 mmol/L (98-106); Hematocrit-VBG 34 % (42.0-52.0); Hemoglobin 9.6 g/dL (14.0-18.0); Hemoglobin (Hb) 11.5 g/dL (12.6-17.4); Mean Corpuscular HGB CONC 33.1 g/dL (32.0-36.0); Mean Corpuscular Hemoglobin 31.8 pg (27.0-31.0); Mean Platelet Volume 11.8 fL (7.4-10.4); Platelet Count 101 10x3/uL (130-400); Potassium (VBG) 2.83 mmol/L (3.70-5.30); RBC Distribution Width 15.1 % (11.5-14.5); Red Blood Cell (RBC) Count 3.02 mill/uL (4.70-6.10); Sodium 139 mmol/L (133-146); pH (venous) 7.455 (7.32-7.43)
[2023-04-20 12:15] LABS: INR-International Normal Ratio 1.3; PTT 38.7 sec (22.9-36.1)
[2023-04-20 12:17] LABS: Manual Diff?? YES
[2023-04-20 12:18] LABS: Band 5 % (5-11); Lymphocytes 1 % (21-51); Metamyelocyte 1 % (0-0); Monocytes 3 % (0-10); Neutrophil 90 % (42-75)
[2023-04-20 12:19] LABS: ALT (SGPT) 13 U/L (8-55); AST (SGOT) 20 U/L (5-34); Albumin 3.7 g/dL (3.4-4.8); Alkaline Phosphatase 37 U/L (40-110); Anion Gap 16 mmol/L (10-20); BUN (Urea Nitrogen) 37 mg/dL (8.4-25.7); Bilirubin, Total 1.5 mg/dL (0.2-1.2); Calc. Creatinine Clearance 0 mL/min (70-130); Calcium 8.4 mg/dL (7.8-10.44); Carbon Dioxide 22 mmol/L (23-31); Chloride 106 mmol/L (98-107); Estimated GFR 31; Globulin 2.4 g/dL (2.4-3.5); Glucose 286 mg/dL (83-110); Lipase 24 U/L (8-78); Magnesium 1.5 mg/dL (1.6-2.6); Ovalocytes SLIGHT = 2-5 cells (100X) (0-1/hpf); Potassium 2.8 mmol/L (3.5-5.1); Protein, Total 6.1 g/dL (5.8-8.1); Sodium 141 mmol/L (136-145)
[2023-04-20 12:20] LABS: Burr Cells SLIGHT = 2-5 cells (100X) (0-1/hpf)
[2023-04-20 12:21] LABS: Platelet Adequacy Comment Appears Decreased
[2023-04-20 12:22] LABS: Troponin I 0.159 ng/mL (< 0.028)
[2023-04-20] MEDS ORDERED: cefTRIAXone (ROCEPHIN) 2 GM VIAL ONE (12:38)
[2023-04-20 12:39] LABS: SARS-CoV-2 NAA Rapid Test Not Detected (NotDetected)
[2023-04-20] MEDS ORDERED: Sodium Chloride 0.9% 100 ML ONE (12:39)
[2023-04-20 13:58] LABS: Bilirubin Negative (Negative); Blood, Urine Negative (Negative); Glucose, Urine (Dipstick) Negative (Negative); Ketone, Urine Negative (Negative); Leukocyte Negative (Negative); Nitrite Negative (Negative); Protein, Urine (Dipstick) Negative (Neg-Trace); Urobilinogen 0.2 mg/dL (Less than 2)
[2023-04-20 13:59] LABS: CAUTI Indications for Culture Alt mental st,lethar; Clarity Clear (Clear)
[2023-04-20] MEDS ORDERED: Aspirin Chewable 81 MG TAB ONE (14:12)
[2023-04-20] MEDS ORDERED: Potassium Chloride 20 MEQ/100 ML PREMIX BAG ONE (14:12)
[2023-04-20] MEDS ORDERED: Vancomycin (BATCH) 2 GM in Premix 1 BAG IVPB SCH (14:30)
[2023-04-20 15:49] LABS: Troponin I 0.127 ng/mL (< 0.028)
[2023-04-20] MEDS ORDERED: Ondansetron ODT 4 MG TAB PO PRN (16:00)
[2023-04-20] MEDS ORDERED: Acetaminophen 325 MG TAB PO PRN (16:00)
[2023-04-20] MEDS ORDERED: diphenhydrAMINE 25 MG CAP PO PRN (16:00)
[2023-04-20] MEDS ORDERED: Artificial Tear Sol 15 ML BOT EA EYE PRN (16:00)
[2023-04-20] MEDS ORDERED: Acetaminophen 650 MG Suppository PR PRN (16:00)
[2023-04-20] MEDS ORDERED: Loratadine 10 MG TAB PO PRN (16:00)
[2023-04-20] MEDS ORDERED: Moisturizing Cream (Eucerin) 113 GM JAR TOP PRN (16:00)
[2023-04-20] MEDS ORDERED: Loperamide HCl 2 MG CAP PO PRN ×2 (16:00)
[2023-04-20] MEDS ORDERED: Sodium Chloride 0.65% Nasal 44 ML BOT EA NARE PRN (16:00)
[2023-04-20] MEDS ORDERED: Magnesium 2 GM/50 ML BAG (IN WATER) ONE (16:03)
[2023-04-20] MEDS ORDERED: Glucagon 1 MG/ML KIT IM PRN (16:04)
[2023-04-20] MEDS ORDERED: Dextrose 5% in Water 1,000 ML IV PRN (16:04)
[2023-04-20] MEDS ORDERED: Dextrose 50% Abboject 50 ML SYRINGE SLOW IVP PRN (16:04)
[2023-04-20] MEDS ORDERED: HumaLOG 300 UNITS/3 ML VIAL SC PRN ×2 (16:04)
[2023-04-20] MEDS ORDERED: Zinc Oxide 20% Oint 30 GM TUBE TOP PRN (16:11)
[2023-04-20] MEDS ORDERED: Potassium Chloride 40 MEQ in Premix 1 BAG IVPB SCH (16:15)
[2023-04-20 18:25] LABS: Anion Gap 15 mmol/L (10-20); BUN (Urea Nitrogen) 38 mg/dL (8.4-25.7); Calc. Creatinine Clearance 0 mL/min (70-130); Calcium 8.1 mg/dL (7.8-10.44); Carbon Dioxide 21 mmol/L (23-31); Chloride 109 mmol/L (98-107); Estimated GFR 32; Glucose 181 mg/dL (83-110); Potassium 3.3 mmol/L (3.5-5.1); Sodium 142 mmol/L (136-145)
[2023-04-20 18:29] LABS: Troponin I 0.109 ng/mL (< 0.028)
[2023-04-20] MEDS: Potassium Chloride 20 MEQ in Premix 1 BAG IVPB SCH (19:38)
[2023-04-20 19:55] VITALS: BMI 28.8
[2023-04-20 20:23] LABS: Troponin I 0.103 ng/mL (< 0.028)
[2023-04-20] MEDS ORDERED: Insulin Glargine 30 UNITS/0.3 ML VIAL SC SCH (21:00)
[2023-04-20] MEDS ORDERED: Famotidine/PF 20 mg/2ml Vial SLOW IVP SCH (21:00)
[2023-04-20] MEDS: Lactated Ringer's 1,000 ML IV SCH (21:51)
[2023-04-20] MEDS: Heparin 5,000 UNITS/ML VIAL SC SCH (21:56)
[2023-04-21] MEDS: Lactated Ringer's 1,000 ML IV SCH ×2 (04:59→07:13)
[2023-04-21] MEDS: Carvedilol 3.125 MG TAB PO SCH ×2 (07:12→09:58)
[2023-04-21] MEDS: Potassium Chloride 20 MEQ in Premix 1 BAG IVPB SCH (07:13)
[2023-04-21] MEDS ORDERED: Potassium Chloride 20 MEQ TAB PO SCH ×2 (07:30→10:00)
[2023-04-21 07:52] LABS: Hemoglobin 9.4 g/dL (14.0-18.0); Mean Corpuscular HGB CONC 32.4 g/dL (32.0-36.0); Mean Corpuscular Hemoglobin 31.5 pg (27.0-31.0); Mean Corpuscular Volume 97.3 fl (78.0-98.0); Mean Platelet Volume 11.9 fL (7.4-10.4); Platelet Count 93 10x3/uL (130-400); RBC Distribution Width 15.2 % (11.5-14.5); Red Blood Cell (RBC) Count 2.98 mill/uL (4.70-6.10); White Blood Cell (WBC) Count 14.2 10x3/uL (4.8-10.8)
[2023-04-21] MEDS ORDERED: Ferrous Sulfate 325 MG TAB PO SCH (08:00)
[2023-04-21 08:01] LABS: Delete Auto Diff?? YES; Manual Diff?? YES
[2023-04-21 08:08] LABS: ALT (SGPT) 11 U/L (8-55); AST (SGOT) 20 U/L (5-34); Albumin 3.4 g/dL (3.4-4.8); Alkaline Phosphatase 48 U/L (40-110); Anion Gap 11 mmol/L (10-20); BUN (Urea Nitrogen) 39 mg/dL (8.4-25.7); Bilirubin, Total 0.6 mg/dL (0.2-1.2); Calc. Creatinine Clearance 41 mL/min (70-130); Calcium 8.2 mg/dL (7.8-10.44); Carbon Dioxide 25 mmol/L (23-31); Chloride 109 mmol/L (98-107); Estimated GFR 33; Globulin 2.2 g/dL (2.4-3.5); Glucose 124 mg/dL (83-110); Protein, Total 5.6 g/dL (5.8-8.1); Sodium 142 mmol/L (136-145)
[2023-04-21 08:48] LABS: Anisocytosis MODERATE=16-30 cells HPF (0-5); Band 31 % (5-11); Burr Cells MODERATE= 6-15 cells HPF (0-1); CellaVision Operator ID lab.dlt; Hypochromia SLIGHT = 6-15 cells HPF (0-5); Lymphocytes 2 % (21-51); Macrocytosis SLIGHT = 6-15 cells HPF (0-5); Monocytes 4 % (0-10); Neutrophil 63 % (42-75); Ovalocytes SLIGHT = 2-5 cells HPF (0-1); Platelet Adequacy Comment Platelets Decreased; Poikilocytosis SLIGHT = 6-15 cells HPF (0-5); Polychromasia SLIGHT = 2-3 cells HPF (0-2); Schistocytes SLIGHT = 2-5 cells HPF (0-1); Total Cell Count 101
[2023-04-21] MEDS ORDERED: Folic Acid 1 MG TAB PO SCH (09:00)
[2023-04-21] MEDS ORDERED: FLU VACC QS2023(65UP)/MF59C/PF 60 MCG/0.5 ML SYRINGE IM ONE (09:00)
[2023-04-21] MEDS ORDERED: Aspirin 81 mg Enteric Coated Tablet PO SCH (09:00)
[2023-04-21] MEDS: Heparin 5,000 UNITS/ML VIAL SC SCH (09:59)
[2023-04-21 11:46] VITALS: BP 135/65; TEMP 102.6
[2023-04-21] MEDS ORDERED: cefTRIAXone\\ROCEPHIN 2 GM in Sodium Chloride 0.9% 100 ML IVPB SCH (12:00)
[2023-04-21] MEDS ORDERED: Famotidine/PF 20 mg/2ml Vial SLOW IVP SCH (21:00)
== END 2023-04-21 14:54 | disposition hospice, home (50) | DRG 871 ==
LOC: ERS 10:53 → T4-A 15:15 → OBSVTOIN 04-21 09:15
PROVIDERS: ADMIT Family Medicine; ATTEND Family Medicine
PROC: 4A043R1 Measurement of Venous Saturation, Peripheral, Percutaneous Approach (ICD-10-PCS; principal; 2023-04-20)
PROC: 3E03329 Introduction of Other Anti-infective into Peripheral Vein, Percutaneous Approach (ICD-10-PCS; 2023-04-20)
DX: A41.89 Other specified sepsis (principal); J18.9 Pneumonia, unspecified organism; N17.9 Acute kidney failure, unspecified; Z51.5 Encounter for palliative care; Z66 Do not resuscitate; I13.0 Hypertensive heart and chronic kidney disease with heart failure and stage 1 through stage 4 chronic kidney disease, or unspecified chronic kidney disease; I50.22 Chronic systolic (congestive) heart failure; N39.0 Urinary tract infection, site not specified; J44.0 Chronic obstructive pulmonary disease with (acute) lower respiratory infection; E87.6 Hypokalemia; E83.42 Hypomagnesemia; E11.22 Type 2 diabetes mellitus with diabetic chronic kidney disease; N18.9 Chronic kidney disease, unspecified; D63.1 Anemia in chronic kidney disease; E78.5 Hyperlipidemia, unspecified; Z90.89 Acquired absence of other organs; Z95.0 Presence of cardiac pacemaker; Z98.890 Other specified postprocedural states; Z79.4 Long term (current) use of insulin; Z79.82 Long term (current) use of aspirin; Z79.899 Other long term (current) drug therapy; Z20.822 Contact with and (suspected) exposure to COVID-19; I25.10 Atherosclerotic heart disease of native coronary artery without angina pectoris; M10.9 Gout, unspecified; F03.90 Unspecified dementia, unspecified severity, without behavioral disturbance, psychotic disturbance, mood disturbance, and anxiety; B34.9 Viral infection, unspecified; G47.33 Obstructive sleep apnea (adult) (pediatric); D69.59 Other secondary thrombocytopenia; R09.02 Hypoxemia; N40.0 Benign prostatic hyperplasia without lower urinary tract symptoms
CPT/HCPCS: 36415; 36416; 71045; 80053; 81001; 82805; 83605; 83690; 83735; 83880; 84145; 84443; 84484; 85025; 85610; 85730; 87040; 87086; 93005; 94760; 96365; 96366; 96367; 96368; 96375; 96376; G0378; J0696; J1644; J1815; J3370; J3475; J3480; J3490; J7120; S0028